=== PATIENT | male | born 1965 | race Caucasian/White ===

== ENCOUNTER 2023-06-09 09:29 | Outpatient (OUT) | payer BC, SELFPAY ==
--- NOTE | 2023-06-09 10:00 | XR_ITS ---
[facility] [id number] Patient Name: MEAGHAN RAPP MRN: [id number] date: 1965 Sex: M Assigned Patient Location: RAD Current Patient Location: RAD Accession/Order Number: [id number] Exam Date: 06/09/2023 09:50 Report Date: 06/09/2023 10:26 At the request of: CHERI PRINGLE Procedure: XR lumbar spine min 4V XR lumbar spine min 4V, 06/09/2023 9:50 AM EDT, [place]001 INDICATION: Dorsalgia M54..9 COMPARISON: None TECHNIQUE: 4 images are submitted including lateral flexion and extension images. FINDINGS: The vertebral bodies demonstrate normal sagittal alignment. There is no significant increased motion with flexion or extension. No acute fracture or subluxation is identified. There is no significant disc space narrowing. There are large anterior and posterior bridging osteophytes throughout the lumbar region. The visualized soft tissues appear unremarkable. XR/XR lumbar spine min 4V IMPRESSION: Diffuse hypertrophic degenerative changes throughout the lumbar spine. No evidence of instability. Electronically authenticated by: COLLEEN ROMEO Date: 06/09/2023 10:26
== END 2023-06-09 09:30 | disposition home or self-care (01) ==
LOC: RAD 09:29
PROVIDERS: PCP Family Medicine; Visit Provider Family Medicine
DX: M54.9 Dorsalgia, unspecified (principal); M51.36 Other intervertebral disc degeneration, lumbar region
CPT/HCPCS: 72110

== ENCOUNTER 2023-08-19 13:55 | Outpatient (OUT) | payer BC, SELFPAY ==
--- OUTSIDE RECORDS SUMMARY | 2023-08-19 13:58 | XMS_ITS | CCD ---
Author Name Unknown Address [address] [facility] [address] [place] [address] Organization [facility] Care Team Providers Care Cost Estimating Engineer Name Role Phone DR YVES VELASCO Admitting Unavailable ROD, DR MICHAEL Consulting Unavailable DR YVES VELASCO Attending Unavailable YARY, DR ALONZO Attending Unavailable DR CHERI PRINGLE Admitting Unavailable Cheri Pringle Unavailable Unavailable Unavailable Unavailable Cheri Pringle Unavailable Cheri Pringle Unavailable Cheri Pringle Unavailable DO Cheri Pringle Primary Care Provider DO Cheri Pringle Attending Provider Unavailable Unavailable DO Cheri Pringle Attending Provider NO FAMILY, PHYSICIAN Primary Care Provider Unava ilable Porsche RAMIREZ, Dr. Maged Morin Referring Unavailable Porsche RAMIREZ, Dr. Maged Morin Attending Unavailable Dr. Cheri Pringle Primary Care Unavaila Cheri Mc Primary Care Physician Mikel GRANGER Attending Unavailable Mikel GRANGER Attending Unavailable Mikel GRANGER Attending Unavailable Mikel GRANGER Attending Unavailable Cheri Pringle DO Primary Care Provider [phone] ANDRE CARLOS Attending Unavailable DO Cheri Pringle Primary Care Provider DO Cheri Pringle Attending Provider Cheri Pringle Admitting Unavailable Cheri Pringle Attending Unavailable Cheri Pringle Admitting Unavailable NO FAMILY, PHYSICIAN Primary Care Unavailable Cheri Pringle Attending Unavailable Cheri Pringle Attending Unavailable Cheri Pringle Primary Care Unavailable Cheri Pringle Admitting Unavailable Allergies Allergy Classification Reported Allergen(s) Allergy Type Date of Onset Reaction(s) Facility (7 sources) Penicillins Drug allergy (disorder) 4 Hives [facility] Repository (15 sources) Penicillins; Translations: [Penicillins] Allergy to drug (finding) Rash [facility] 250 DO Work Phone: (13 sources) Penicillins (Antibiotic) Propensity to adverse reactions rash [facility] [employer] Other (3 sources) Penicillin; Translations: [penicillin] Drug Allergy Unknown (qualifier value) [facility] (1 source) Penicillins Drug allergy (disorder) 0 [facility] Repository Medications Current Medications Medication Drug Class(es) Dates Sig (Normalized) Sig (Original) apixaban 5 mg oral tablet (10 sources) Factor Xa Inhibitor Start: 10-28-2021 take 1 tablet by mouth twice daily Apixaban (Eliquis) 5 mg Tablet Active 5 MG PO Twice daily October 28, 2021 12:00am Start: 09-21-2021 take 1 tablet by gonzalo th twice daily Eliquis 5 MG Oral Tablet Take 1 tablet twice daily Quantity: 60 Refills: 6 Ordered: 21-Sep-2021 Carmen Balderas Start : 21-Sep-2021 Active Ascorbic Acid (20 sources) Vitamin C Start: 01-10-2023 Vitamin C Margarita y, Refills(s) 0 Start Date: 01/10/23 Status: Ordered Start: 08-07-2020 take 1 tablet by mouth once da isac Ascorbic Acid (Vitamin C) Active 1 TAB PO Daily August 07, 2020 12:00am Start: 08-07-2020 take 1 tablet by mouth once da isac Ascorbic Acid (Vitamin C) Active 1 TAB PO Daily August 07, 2020 1:00am take 1 tablet by gonzalo th every twenty-four hours Vitamin C 1000 MG 1 tablet Orally Once a day Not-Taking/PRN aspirin 81 mg delayed release oral tablet (20 sources) Platelet Aggregation Inhibitor, Nonsteroidal Anti-inflammatory Drug Start: 01-10-2023 take 1 mg by mouth once daily aspirin 81 mg Oral EC Tab mg tab(s), Oral, Daily, Refills(s) 0 Start Date: 01/10/23 Status: Ordered Start: 08-07-2020 End: 10-28-2021 take 81 mg by mouth once daily Aspirin Discontinued 81 MG PO Daily August 07, 2020 12:00am October 28, 2021 8:50am take 1 tablet by gonzalo th every twenty-four hours Aspirin 81 81 MG 1 tablet Orally Once a day Active take 1 tablet by gonzalo th once daily Aspirin 81 81 MG 1 tablet Orally Once a day Active Baby Aspirin Act lalo cholecalciferol 0.05 mg oral tablet (20 sources) Vitamin D Start: 08-07-2020 take 1 tablet by mouth once daily Cholecalciferol (Vitamin D3) (Vitamin D3) 50 mcg (2,000 unit) Tablet Active 50 MCG PO Daily August 07, 2020 12:00am take 1 capsule by mouth once meche ly Vitamin D (Cholecalciferol) 50 MCG (2000 UT) Oral Capsule TAKE 1 CAPSULE Daily Quantity: 0 Refills: 0 Ordered: 02-Oct-2021 DO Active CPAP Mask and supplies (13 sources) Start: 07-07-2018 CPAP Mask and supplies as directed Dx: G47.33 Jun, Active Cranberry preparation (4 sources) Non-Standardized Food Allergenic Extract, Non-Standardized Plant Allergenic Extract Cranberry Active dofetilide 0.25 mg oral capsule (20 sources) Antiarrhythmic Start: 01-10-2023 dofetilide 250 mcg oral capsule Refills(s) 0 Start Date: 01/10/23 Status: Ordered Start: 10-30-2021 take 1 capsule by mo uth every twelve hours Dofetilide 250 MCG Oral Capsule TAKE 1 CAPSULE Every twelve hours Quantity: 180 Refills: 3 Ordered: 09-Feb-2022 Maged Nuno DO Start : 30-Oct-2021 Active Start: 10-30-2021 take 250 ug by mouth every twelve hours Dofetilide Active 250 MCG PO Q12H 60 30 October 30, 2021 12:00am take 1 capsule by mo uth every twelve hours Dofetilide 250 MCG 1 capsule Orally Twice a day Active dutasteride 0.5 mg oral capsule (6 sources) 5-alpha Reductase Inhibitor Start: 03-07-2023 End: 03-23-2024 take 1 capsule by mouth once daily dutasteride 0.5 mg Cap 0.5 mg = 1 cap(s), Oral, Daily, X 30 day(s), # 30 cap(s), Refills(s) 11, [facility]: [id number], 193, cm, 03/07/23 14:45:00 EDT, Height/Length Dosing, 178, kg, 03/07/23 14:45:00 EDT, Weight Dosing Start Date: 03/29/23 Stop Date: 03/23/24 Status: Ordered [id number] 0.3 ml EPINEPHrine 1 mg/ml auto-injector (14 sources) alpha-Adrenergic Agonist, beta-Adrenergic Agonist, Catecholamine Start: 11-26-2021 EpiPen 2-Timoteo 0.3 MG/0.3ML as directed Injection Nov, Active Start: 11-26-2021 EPINEPHrine 0. 3 MG/0.3ML Injection Solution Auto-injector inject 0.3 milliliters intramuscularly in OUTER THIGH and HOLD fo... (REFER TO PRESCRIPTION NOTES). Quantity: 2 Refills: 0 Ordered: 26-Nov-2021 DO Start : 26-Nov-2021 Active krill oil (20 sources) Start: 08-07-2021 take 1 capsule by mouth once daily Zmulp-No-9-Upo-Bnl-Dgcbkwg-Ast (Krill Oil) 025-180-42-75 mg Capsule Active 1 CAP PO Daily August 07, 2021 12:00am Start: 08-07-2021 take 1 capsule by mouth once daily Aonag-Bh-7-Xvw-Ram-Zqqtiip-Ast (Krill Oi l) 607-277-09-75 mg Capsule Active 1 CAP PO Daily August 07, 2021 1:00am Krill Oil 1000 M G as directed Orally Active Magnesium (20 sources) Start: 08-07-2020 take 250 mg by mouth twice daily Magnesium Active 250 MG PO Twice daily August 07, 2020 12:00am Start: 08-07-2020 take 250 mg by mouth twice meche ly Magnesium Active 250 MG PO Twice daily August 07, 2020 1:00am take 1 capsule by mo [facility] twice daily Magnesium 250 MG 1 capsule with a meal Orally twice daily Active take 1 tablet by gonzalo twice daily Magnesium 250 MG Oral Tablet Take 1 tablet twice daily Quantity: 0 Refills: 0 Ordered: 31-Jarrell-2022 DO Active take 1 tablet by mouth once margarita y Magnesium 250 MG Oral Tablet TAKE 1 TABLET DAILY. Quantity: 0 Refills: 0 Ordered: 10-Aug-2021 DO Active take 1 capsule by mo [facility] once daily Magnesium 250 MG 1 capsule with a meal Orally Once a day Active magnesium gluconate 250 mg oral tablet (2 sources) Start: 01-10-2023 take 1 mg by mouth twice daily magnesium gluconate 250 mg oral tablet mg, tab(s), Oral, BID, Refill(s) 0 Start Date: 01/10/23 Status: Ordered Nature's Bounty Red Krill Oil (2 sources) Start: 01-10-2023 take 1 mg by mouth once daily Nature's Bounty Red Krill Oil mg, Oral, Daily, Refill(s) 0 Start Date: 01/10/23 Status: Ordered olmesartan medoxomil 20 mg oral tablet (20 sources) Angiotensin 2 Receptor Elijah Start: 12-09-2021 olmesartan 20 mg Tab Refills(s) 0 Start Date: 01/10/23 Status: Ordered Start: 10-30-2021 take 1 tablet by gonzalo once daily Olmesartan (Benicar) 40 mg tablet Active 40 MG PO Daily October 30, 2021 12:00am take 1 tablet by gonzalo twice daily Olmesartan Medoxomil 40 MG 1 tablet Orally twice per day Active Psyllium (19 sources) Start: 01-10-2023 Metamucil Oral , Refills(s) 0 Start Date: 01/10/23 Status: Ordered Metamucil 48.57 % as directed Orally Active Metamucil Oral W afer as directed Quantity: 0 Refills: 0 Ordered: 09-Dec-2021 DO Active Metamucil 48.57 % as directed Orally Active Psyllium Husk (Metamucil) 0. 4 gram Capsule (5 sources) Start: 08-08-2020 Psyllium Husk (Metamucil) 0.4 gram Capsule Active 0.4 GM PO Daily August 08, 2020 12:00am Start: 08-08-2020 Psyllium Husk (Metamucil) 0.4 gram Capsule Active 0.4 GM PO Daily August 08, 2020 1:00am tadalafil 20 mg oral tablet (1 source) Phosphodiesterase 5 Inhibitor Start: 03-07-2023 End: 05-06-2023 take 1 tablet by mouth once daily Cialis 20 mg Tab 20 mg = 1 tab(s), Oral, Daily, X 30 day(s), # 30 tab(s), Refills(s) 1, [facility]acy: [facility] #[id number], 193, cm, 03/07/23 14:45:00 EDT, Height/Length Dosing, 178, kg, 03/07/23 14:45:00 EDT, Weight Dosing Start Date: 03/07/23 Stop Date: 05/06/23 Status: Ordered Vitamin D2 2000 Unit (13 sources) Start: 09-19-2017 take 1 tablet by mouth once daily Vitamin D2 2000 Unit OTC 1 tablet Orally qd Aug, Active Vitamin D3 (2 sources) Start: 01-10-2023 Vitamin D3 Refills(s) 0 Start Date: 01/10/23 Status: Ordered Completed/Discontinued Medications Medication Drug Class(es) Dates Sig (Normalized) Sig (Original) 24 hr alfuzosin hydrochloride 10 mg extended release oral tablet (2 sources) alpha-Adrenergic Elijah take 1 tablet by mouth once daily Alfuzosin HCl ER 10 MG Oral Tablet Extended Release 24 Hour TAKE 1 TABLET DAILY. Quantity: 0 Refills: 0 Ordered: 03-Feb-2023 DO Active amLODIPine 5 mg oral tablet (13 sources) Dihydropyridine Calcium Channel Elijah Start: 08-07-2021 End: 08-09-2021 take 5 mg by mouth once daily Amlodipine Discontinued 5 MG PO Daily August 07, 2021 12:00am August 09, 2021 11:52am Start: 08-07-2020 End: 08-07-2021 take 10 mg by mouth once daily Amlodipine Discontinued 10 MG PO Daily August 07, 2020 12:00am August 07, 2021 5:57pm doxycycline hyclate 100 mg oral capsule (12 sources) Tetracycline-class Drug Start: 06-01-2022 take 1 capsule by mouth every twelve hours Doxycycline Hyclate 100 MG 1 capsule Orally Twice a day May, Not-Taking/PRN take 1 tablet by mouth once margarita y Doxycycline Hyclate 100 MG Oral Tablet TAKE 1 TABLET EVERY 12 HOURS DAILY. Quantity: 0 Refills: 0 Ordered: 03-Feb-2023 DO Active sotalol hydrochloride 120 mg oral tablet (13 sources) Antiarrhythmic Start: 08-09-2021 End: 10-28-2021 take 120 mg by mouth twice daily Sotalol Discontinued 120 MG PO Twice daily 60 August 09, 2021 12:00am October 28, 2021 8:51am take 0.5 tablet by mouth twice d aily Sotalol HCl - 120 MG Oral Tablet TAKE 0.5 TABLET Twice daily Quantity: 0 Refills: 0 Ordered: 02-Oct-2021 DO Active Triamcinolone (10 sources) Corticosteroid Start: 10-20-2017 Kenalog -40 mg Oct, Vitamin C 1000 MG (12 sources) take 1 tablet by mouth once daily Vitamin C 1000 MG 1 tablet Orally Once a day Not-Taking take 1 tablet by mouth once margarita y Vitamin C 1000 MG 1 tablet Orally Once a day Active Problems Active Problems Problem Classification Problem Date Documented Da te Episodic/Chronic Adjustment disorders (13 sources) Feeling stressed; Translations: [Reaction to severe stress, unspecified] Chronic Asthma (12 sources) Asthma; Translations: [Asthma, unspecified type, unspecified] Chronic Cardiac dysrhythmias (20 sources) Atrial fibrillation; Translations: [Atrial fibrillation] 08-07-2021 Chronic Diabetes mellitus without complication (5 sources) Hyperglycemia, unspecified; Translations: [Hyperglycemia] Onset: 05-26-2021 Resolved: 05-26-2021 Episodic Disorders of lipid metabolism (20 sources) Hyperlipidemia; Translations: [Hyperlipidemia, unspecified] Onset: 05-26-2021 Resolved: 05-26-2021 Chronic Essential hypertension (20 sources) Benign hypertension; Translations: [Benign essential hypertension] Onset: 05-26-2021 Resolved: 05-26-2021 Chronic Genitourinary symptoms and ill-defined conditions (1 source) Hematuria, unspecified Episodic Hyperplasia of prostate (4 sources) Benign prostatic hypertrophy with outflow obstruction; Translations: [Benign prostatic hyperplasia with lower urinary tract symptoms] Onset: 03-07-2023 Chronic Inflammatory conditions of male genital organs (4 sources) Prostatitis; Translations: [Inflammatory disease of prostate, unspecified] Onset: 03-07-2023 Episodic Nonspecific chest pain (5 sources) Chest pain; Translations: [Chest pain, unspecified] 08-07-2021 Episodic Nutritional deficiencies (18 sources) Vitamin D deficiency; Translations: [Vitamin D deficiency, unspecified] Onset: 05-26-2021 Resolved: 05-26-2021 Chronic Osteoarthritis (13 sources) Arthritis of joint of right shoulder region; Translations: [Primary osteoarthritis, right shoulder] Chronic Other aftercare (2 sources) Other detention (current) drug therapy Episodic Other aftercare (4 sources) Drug therapy finding; Translations: [Long-term (current) use of other medications] Episodic Other and unspecified benign neoplasm (13 sources) History of polyp of colon; Translations: [Personal history of colonic polyps] Episodic Other circulatory disease (2 sources) Elevated blood-pressure reading, without diagnosis of hypertension Episodic Other connective tissue disease (13 sources) Bursitis of right shoulder; Translations: [Bursitis of right shoulder] Episodic Other diseases of veins and lymphatics (13 sources) Peripheral venous insufficiency; Translations: [Venous insufficiency (chronic) (peripheral)] Episodic Other gastrointestinal disorders (4 sources) Dysphagia; Translations: [Dysphagia, unspecified] Episodic Other gastrointestinal disorders (1 source) Dysphagia, unspecified Episodic Other infections; including parasitic (5 sources) Personal history of other infectious and parasitic diseases; Translations: [History of COVID-19] 08-07-2021 Episodic Other lower respiratory disease (2 sources) Nodule of lung; Translations: [Solitary pulmonary nodule] Episodic Other lower respiratory disease (1 source) Solitary pulmonary nodule; Translations: [Solitary pulmonary nodule] Onset: 08-01-2023 Episodic Other nervous system disorders (13 sources) Sensory disorder of smell and/or taste; Translations: [Anosmia] Episodic Other nervous system disorders (13 sources) Loss of taste; Translations: [Parageusia] Episodic Other nervous system disorders (20 sources) Skin sensation disturbance; Translations: [Paresthesia of skin] Episodic Other nutritional; endocrine; and metabolic disorders (2 sources) Morbid obesity; Translations: [Morbid obesity] Chronic Other nutritional; endocrine; and metabolic disorders (12 sources) Body mass index 40+ - severely obese; Translations: [Morbid obesity] Chronic Other nutritional; endocrine; and metabolic disorders (2 sources) Abnormal weight gain; Translations: [Weight gain R63.5] Onset: 05-26-2021 Resolved: 05-26-2021 Episodic Other nutritional; endocrine; and metabolic disorders (1 source) Abnormal weight loss Episodic Other screening for suspected conditions (not mental disorders or infectious disease) (19 sources) Echocardiogram abnormal; Translations: [Nonspecific (abnormal) findings on radiological and other examination of other intrathoracic organs] Onset: 05-26-2021 Resolved: 05-26-2021 Episodic Residual codes; unclassified (20 sources) Sleep apnea; Translations: [Unspecified sleep apnea] 01-10-2023 Chronic Residual codes; unclassified (2 sources) Sleep apnea, unspecified; Translations: [Sleep apnea G47.30] Onset: 05-26-2021 Resolved: 05-26-2021 Chronic Residual codes; unclassified (4 sources) Family history of malignant neoplasm of kidney; Translations: [Family history of malignant neoplasm of kidney] Onset: 03-07-2023 Episodic Residual codes; unclassified (2 sources) Family history of cancer; Translations: [Family history of malignant neoplasm of prostate] Onset: 03-07-2023 Episodic Residual codes; unclassified (2 sources) Family history of prostate cancer 01-10-2023 Episodic Spondylosis; intervertebral disc disorders; other back problems (1 source) Dorsalgia, unspecified Episodic Thyroid disorders (17 sources) Hypothyroidism; Translations: [Hypothyroidism, unspecified] Chronic Past or Other Problems Problem Classification Problem Date Documented Date Episodic/Chronic Immunizations and screening for infectious disease (4 sources) Contact with and (suspected) exposure to other viral communicable diseases; Translations: [CONTCT EXPS OTH VIRL COMMUNICABL DZ] Onset: 08-05-2020 Episodic Other and unspecified benign neoplasm (1 source) Personal history of colonic polyps; Translations: [PERSONAL HISTORY OF COLONIC POLYPS] Onset: 08-18-2020 Episodic Other diseases of veins and lymphatics (1 source) Venous insufficiency (chronic) (peripheral); Translations: [Stasis dermatitis of both legs I87.2] Onset: 05-26-2021 Resolved: 05-26-2021 Episodic Other lower respiratory disease (1 source) Cough; Translations: [Cough R05] Onset: 05-26-2021 Resolved: 05-26-2021 Episodic Unclassified (12 sources) Never smoked tobacco; Translations: [Never a smoker] Urinary tract infections (5 sources) Cystitis, unspecified without hematuria; Translations: [Cystitis, unspecified without hematuria] Onset: 12-13-2022 Episodic Viral infection (1 source) COVID-19 Results Test Name Value Interpretation Reference Range Facility CT chest wo conon 08-01-2023 CT chest wo con [facility] [place] [address] [place] [address] CT Scan Report Signed Patient: Chevy Rapp MR#: [id number] 123 : 1965 Acct:[id number] Age/Sex: 58 / M ADM Date: 08/01/23 Loc: CT Room: Type: [facility] Attending Dr: Cheri Pringle DO Copies to: Cheri Pringel DO Ordering Provider: Cheri Pringle DO Date of Service: 08/01/23 CT/CT chest wo con: R91.1 CT CHEST WITHOUT IV CONTRAST: CLINICAL HISTORY: Follow-up lung nodule COMPARISON: Cardiac scoring CT performed at outside institution 07/11/2023 TECHNIQUE: Spiral images were obtained through the chest without IV contrast. This CT exam was performed using one or more following dose reduction techniques: Automated exposure control, adjustment of the mA and/or kV according to patient size, or use of iterative reconstruction technique. FINDINGS: Mediastinum:Thoracic aorta appears normal in caliber. Pulmonary trunk appears nondilated. No pleural effusion. No lymphadenopathy. The esophagus is grossly unremarkable. Lungs:No consolidation pneumothorax or pleural effusion. Trachea and distal airways appear patent. No suspicious pulmonary nodule seen on today's study. Stable fissural nodule seen along the minor fissure measuring 3 mm series 4 measures 34 likely postinflammatory in nature. Abd:No acute findings. Soft tissues/Bones: Soft tissues demonstrate no acute findings. Osseous structures demonstrate degenerative change. CT/CT chest wo con IMPRESSION: Presumed postinflammatory nodule along the minor fissure. No suspicious pulmonary nodule is seen on today's study. Impression dictated by: Markell Dodge Jr., D.O.08/01/2023 2:31 PM Dictation Location: [place] [address] Transcribed By: [facility] 08/01/23 1431 Dictated By: Markell Dodge Jr, DO 08/01/23 1134 Signed By: 08/01/23 1431 [address] [facility] CT for calcium scoring WO co ntrast and CTA W contrast IV Heart and coronary arterieson 07-11-2023 Addendum by Brayden Cisneros MD on 07/11/2023 11:41 AM EST Interpreted By: Brayden Cisneros, ADDENDUM: NON-CARDIOVASCULAR FINDINGS INCLUDED LUNGS, AIRWAYS AND PLEURA Endotracheal / endobronchial lesion: Negative Nodule: 3 mm noncalcified technically indeterminate solid middle lobe nodule just below the minor fissure versus fissural lymph node, but seems removed from the minor fissure by several mm Airspace disease: Negative Pleural effusion: Negative Pneumothorax: Negative Other: No acute or contributory unanticipated findings INCLUDED NON-CARDIOVASCULAR ENRIQUE AND MEDIASTINUM Adenopathy: Negative Included esophagus: Unremarkable Other: No acute or contributory unanticipated findings INCLUDED BONES: No acute skeletal findings, noting less sensitivity and specificity without dedicated sagittal and coronal reformatted series. INCLUDED CHEST WALL No acute or contributory unanticipated findings INCLUDED UPPER ABDOMEN Borderline to mild fatty liver ------- NON-CARDIOVASCULAR IMPRESSION BORDERLINE TO MILD FATTY LIVER. AT LEAST SOME PORTIONS OF THE INCLUDED LIVER ON LIMITED FIELD OF VIEW CT CHEST WITHOUT CONTRAST FOR CORONARY ARTERY CALCIUM SCORING DATED 04 OCTOBER 2016 MEASURED FATTY AT THAT TIME 3 MM MIDDLE LOBE NODULE VERSUS MINOR FISSURAL LYMPH NODE IS IN A PORTION OF THE CHEST NOT INCLUDED IN THE FIELD OF VIEW ON THE LIMITED FIELD OF VIEW CT CHEST WITHOUT CONTRAST FOR CORONARY ARTERY CALCIUM SCORING DATED 04 OCTOBER 2016, UNCLEAR WHETHER NEW OR NOT. Even if new, ACCORDING TO 2017 REVISION LUNG NODULE FOLLOW-UP GUIDELINES, ONE YEAR FOLLOW-UP CHEST CT WOULD BE OPTIONAL, EVEN IN A HIGH RISK PATIENT (SMOKING OR MALIGNANCY HISTORY); HOWEVER, THOSE RECOMMENDATIONS ARE BASED ON REVIEW OF A COMPLETE CHEST CT. THE NEED, IF ANY, FOR NEAR TERM FOLLOW-UP COMPLETE CHEST CT SHOULD BE BASED ON CLINICAL/RISK FACTORS NOTE THIS ADDENDUM IS SOLELY FOR INTERPRETATION OF ANATOMY OUTSIDE THE CARDIOVASCULAR SYSTEM. INTERPRETATION OF AND REPORTING OF THE CARDIOVASCULAR STRUCTURES ARE THE SOLE RESPONSIBILITY OF THE [employer] DUSTER HELPER SUBMITTING THE ORIGINAL REPORT (NOT THIS ADDENDUM) Signed by: Brayden Cisneros 07/11/2023 11:41 AM -------- ORIGINAL REPORT -------- Dictation workstation: [id number] [facility] Work Phone: 1. Coronary artery calcium score of 485*. 2. JEFFERSON 91st percentile for age, gender, and race in asymptomatic patients. *Coronary Artery Agatston score Score risk Very low 1-99 Mildly increased 100-299 Moderately increased >300 Moderate to severely increased >800 Alonzo et al. JCCT 2016 (http://dx.doi.org/10. 1016/j.jcct.2016.11.00 3) JEFFERSON Percentile In general, greater than 75th percentile for age, gender, and race is considered to be a higher relative risk and higher lifetime risk condition. Greater than 75th percentile=moderate to severely increased relative risk irrespective of the score. Advise using JEFFERSON 10 year CHD risk calculator below for better discrimination of risk. JEFFERSON 10-Year CHD Risk with Coronary Artery Calcification can be calcuate using link below [email or web address] [email or web address] [email or web address].[email or web address] x Joan goel al. JACC 2015 (http://dx.doi.org/10. 1016/j.j acc.2015.08.035) Reading Sound Effects Manager: Dr. Hesham Clark, Date: 07/11/2023 11:22 am Signed by: Hesham Clark 07/11/2023 11:24 AM Dictation workstation: [id number] MMODAL Interpreted By: Hesham Clark, STUDY: CT CARDIAC SCORING WO IV CONTRAST; 07/11/2023 10:30 am INDICATION: Signs/Symptoms:SCREENI NG. COMPARISON: None. ACCESSION NUMBER(S): [id number] ORDERING CLINICIAN: CHERI PRINGLE TECHNIQUE: Using prospective ECG gating, CT scan of the coronary arteries was performed without intravenous contrast. Coronary calcium scoring was performed according to the method of Agatston. CT Dose-Length Product (DLP): 60.7 mGy*cm CT Dose Reduction Employed: Yes, prospective gating, iterative reconstruction. FINDINGS: The score and distribution of calcium in the coronary arteries is as follows: LM 0 LAD 264 LCx 199 RCA 22 Total 485 The visualized ascending thoracic aorta measures 4.0 cm in diameter. The heart is normal in size. No pericardial effusion is present. The main pulmonary artery, right and left pulmonary artery are normal in size. MMODAL Hesham Clark D O / Brayden Cisneros MD - 07/11/2023 Interpreted By: Hesham Clark, STUDY: CT CARDIAC SCORING WO IV CONTRAST; 07/11/2023 10:30 am INDICATION: Signs/Symptoms:SCREENI NG. COMPARISON: None. ACCESSION NUMBER(S): [id number] ORDERING CLINICIAN: CHERI PRINGLE TECHNIQUE: Using prospective ECG gating, CT scan of the coronary arteries was performed without intravenous contrast. Coronary calcium scoring was performed according to the method of Agatston. CT Dose-Length Product (DLP): 60.7 mGy*cm CT Dose Reduction Employed: Yes, prospective gating, iterative reconstruction. FINDINGS: The score and distribution of calcium in the coronary arteries is as follows: LM 0 LAD 264 LCx 199 RCA 22 Total 485 The visualized ascending thoracic aorta measures 4.0 cm in diameter. The heart is normal in size. No pericardial effusion is present. The main pulmonary artery, right and left pulmonary artery are normal in size. IMPRESSION: 1. Coronary artery calcium score of 485*. 2. JEFFERSON 91st percentile for age, gender, and race in asymptomatic patients. *Coronary Artery Agatston score Score risk Very low 1-99 Mildly increased 100-299 Moderately increased >300 Moderate to severely increased >800 Alonzo et al. JCCT 2016 (http://dx.doi.org/10. 1016/j.jcct.2016.11.00 3) JEFFERSON Percentile In general, greater than 75th percentile for age, gender, and race is considered to be a higher relative risk and higher lifetime risk condition. Greater than 75th percentile=moderate to severely increased relative risk irrespective of the score. Advise using JEFFERSON 10 year CHD risk calculator below for better discrimination of risk. JEFFERSON 10-Year CHD Risk with Coronary Artery Calcification can be calcuate using link below https://www.jefferson-nhlbi .org/[email or web address]/MesaR iskScore/RiskScore.asp x Joan goel al. JACC 2015 (http://dx.doi.org/10. 1016/j.j acc.2015.08.035) Reading Sound Effects Manager: Dr. Hesham Clark, Date: 07/11/2023 11:22 am Signed by: Hesham Clark 07/11/2023 11:24 AM Dictation workstation: [id number] [facility] Work Phone: Radiology Study observation (narrative) [facility] Work Phone: CT for calcium scoring WO co ntrast and CTA W contrast IV Heart and coronary arteriesOrdered By: Hesham Clark on 07-11-2023 [facility] Work Phone: Ambulatory Visit Summaryon 1 08-27-2022 Ambulatory Visit Summary CHEVY RAPP :1965 Visit Date:06/27/2023 Ambulatory Visit Instructions Your Diagnosis BPH with urinary obstruction Prostatitis Family history of prostate cancer in father Family history of kidney cancer Tests Performed Urnls Dip Stick Auto w/o Microscopy POC 17230 Your Care Team Attending Physician - Mikel GRANGER MD Primary Care Physician - Cheri Pringle DO This Is Your Medications List dutasteride (dutasteride 0.5 mg Cap) Contact prescribing physician if questions or concerns ascorbic acid (Vitamin C) aspirin (aspirin 81 mg Oral EC Tab) cholecalciferol (Vitamin D3) dofetilide (dofetilide 250 mcg oral capsule) magnesium gluconate (magnesium gluconate 250 mg oral tablet) olmesartan (olmesartan 20 mg Tab) omega-3 polyunsaturated fatty acids (Nature's Bounty Red Krill Oil) psyllium (Metamucil) Procedures Performed Colonoscopy, Repair of quadriceps tendon. Discharge Vitals Heart Rate (Peripheral) 88 Respiratory Rate 16 Blood Pressure 131/81 Height 193 cm Height 76 in Weight 178.4 kg Weight 392.48 lb BMI 47.89 What to do next Scheduled Follow-Up Appointments Tuesday. 2023 2:45 PM EDT With: SCOTT VINSON, Mikel Wagner Where: [facility] Patient Educationon 06-27-20 23 Patient Education Urology Benign Prostatic Hyperplasia Benign prostatic hyperplasia (BPH) is an enlarged prostate gland that is caused by the normal aging process. The prostate may get bigger as a man gets older. The condition is not caused by cancer. The prostate is a walnut-sized gland that is involved in the production of semen. It is located in front of the rectum and below the bladder. The bladder stores urine. The urethra carries stored urine out of the body. An enlarged prostate can press on the urethra. This can make it harder to pass urine. The buildup of urine in the bladder can cause infection. Back pressure and infection may progress to bladder damage and kidney (renal) failure. What are the causes? This condition is part of the normal aging process. However, not all men develop problems from this condition. If the prostate enlarges away from the urethra, urine flow will not be blocked. If it enlarges toward the urethra and compresses it, there will be problems passing urine. What increases the risk? This condition is more likely to develop in men older than 50 years. What are the signs or symptoms? Symptoms of this condition include: ? Getting up often during the night to urinate. ? Needing to urinate frequently during the day. ? Difficulty starting urine flow. ? Decrease in size and strength of your urine stream. ? Leaking (dribbling) after urinating. ? Inability to pass urine. This needs immediate treatment. ? Inability to completely empty your bladder. ? Pain when you pass urine. This is more common if there is also an infection. ? Urinary tract infection (UTI). How is this diagnosed? This condition is diagnosed based on your medical history, a physical exam, and your symptoms. Tests will also be done, such as: ? A post-void bladder scan. This measures any amount of urine that may remain in your bladder after you finish urinating. ? A digital rectal exam. In a rectal exam, your health care provider checks your prostate by putting a lubricated, gloved finger into your rectum to feel the back of your prostate gland. This exam detects the size of your gland and any abnormal lumps or growths. ? An exam of your urine (urinalysis). ? A prostate specific antigen (PSA) screening. This is a blood test used to screen for prostate cancer. ? An ultrasound. This test uses sound waves to electronically produce a picture of your prostate gland. Your health care provider may refer you to a specialist in kidney and prostate diseases (urologist). How is this treated? Once symptoms begin, your health care provider will monitor your condition (active surveillance or watchful waiting). Treatment for this condition will depend on the severity of your condition. Treatment may include: ? Observation and yearly exams. This may be the only treatment needed if your condition and symptoms are mild. ? Medicines to relieve your symptoms, including: ? Medicines to shrink the prostate. ? Medicines to relax the muscle of the prostate. ? Surgery in severe cases. Surgery may include: ? Prostatectomy. In this procedure, the prostate tissue is removed completely through an open incision or with a laparoscope or robotics. ? Transurethral resection of the prostate (TURP). In this procedure, a tool is inserted through the opening at the tip of the penis (urethra). It is used to cut away tissue of the inner core of the prostate. The pieces are removed through the same opening of the penis. This removes the blockage. ? Transurethral incision (TUIP). In this procedure, small cuts are made in the prostate. This lessens the prostate's pressure on the urethra. ? Transurethral microwave thermotherapy (TUMT). This procedure uses microwaves to create heat. The heat destroys and removes a small amount of prostate tissue. ? Transurethral needle ablation (TUNA). This procedure uses radio frequencies to destroy and remove a small amount of prostate tissue. ? Interstitial laser coagulation (ILC). This procedure uses a laser to destroy and remove a small amount of prostate tissue. ? Transurethral electrovaporization (TUVP). This procedure uses electrodes to destroy and remove a small amount of prostate tissue. ? Prostatic urethral lift. This procedure inserts an implant to push the lobes of the prostate away from the urethra. Follow these instructions at home: ? Take qyqc-pvx-lmvhlsj and prescription medicines only as told by your health care provider. ? Monitor your symptoms for any changes. Contact your health care provider with any changes. ? Avoid drinking large amounts of liquid before going to bed or out in public. ? Avoid or reduce how much caffeine or alcohol you drink. ? Give yourself time when you urinate. ? Keep all follow-up visits. This is important. Contact a health care provider if: ? You have unexplained back pain. ? Your symptoms do not get better with treatment. ? You develop side effects from the medicine (more content not included)... [facility] Office/Clinic Noteon 06-27-2023 Urology Office/Clinic Note Chief Complaint BPH with urinary obstruction HPI Staff 3 month f/u. Previous dx of BPH with urinary obstruction, prostatitis, family hx of prostate cancer (father) and family hx of kidney cancer. Pt continues taking Dutasteride 0.5mg QD. Dysuria: no Incomplete bladder emptying: no Hematuria: no Frequency: every couple of hours Urgency: minor states it is so much better than before Nocturia: 1x Stream: good flow Leaking: very little now Post void dripping: yes Wearing pads/ Depends: no Urge incontinence: no Stress incontinence: no Incontinence without Sensory Awareness: no Abdominal pain: no Flank pain: no Sexual complaints: no History of Present Illness Tests reviewed: reviewed UA I have reviewed the previous health record information and history for this patient from . I have reviewed and verified the staff HPI to be accurate for this encounter. There have been no associated fever, chills, flank pain, or blood in the urine. Denies any urinary infections since last encounter. Review of Systems PHQ Score Initial Depression Screen Score: 0 ROS - Provider Constitutional: denies weight loss, denies hot flashes. Eyes: denies eye problems. Gastrointestinal: denies nausea, denies vomiting. Cardiovascular: denies chest pain or angina. Integumentary: no dryness Musculoskeletal: denies musculoskeletal symptoms. ENMT: denies otolaryngeal symptoms. Respiratory: no shortness of breath. Heme/Lymph: denies easy bleeding tendency, denies easy bruising tendency. Psychiatric: no confusion, no anxiety. Genitourinary: See HPI. Physical Exam Vitals & Measurements HR: 88(Peripheral) RR: 16 BP: 131/81 HT: 76 in HT: 193 cm WT: 178.4 kg WT: 392.48 lb BMI: 47.89 General Appearance: alert, no distress, well nourished, well developed male. Assessment/Plan 1. BPH with urinary obstruction (N40.1: Benign prostatic hyperplasia with lower urinary tract symptoms) PSA: 11/19/22 - 0.45 11/26/22 - 1.46 (elevated due to prostatitis) 02/11/23 - 0.42 Pt was taking Alfuzosin 10 mg ER QD, reported that he had low BP when he first began taking it and has been feeling hot after taking medication, pt stated he stopped taking his BP medication. Pt was to stop taking Alfuzosin, restart BP medication, and begin Dutasteride 0.5mg QD and Cialis 20mg QOD. Pt states that he is currently taking Dutasteride 0.5mg QD and not the Cialis. Pt states that he has noticed an improvement from starting the Dutasteride, he does not void as frequently, can sit through a movie without having to void, has a larger volume when he voids. Pt states that he is happy with the differences. Advised pt that he will still have a few more months of improvement. Pt states that he had taken the Cialis for a little bit, but was experiencing hot flashes and d/c it. Advised pt that this is fine. Pt states that he has seen a 25% of improvement. Pt states that the only problem he has is that his insurance does not cover the Dutasteride and it costs the same with GoodRx. Advised pt that there is another med that could be cheaper, but if he is doing well with the Dutasteride, he should stay on it. Follow up in 4 mos. All questions/concerns were discussed. Pt to call the office if he encounters any issues prior. Pt acknowledges understanding. -Continue Dutasteride 0.5mg QD. 2. Prostatitis (N41.9: Inflammatory disease of prostate, unspecified) UA dip & micro 06/01/22 - WBC 20-49, RBC 5-9. UCx 06/01/22 - >100,000 E. coli, mallory sensitive. UA dip & micro 06/15/22 - WBC 3-4, RBC 3-4. UCx 06/15/22 - Mixed skin containments. UA dip & micro 11/29/22 - WBC 10-19, RBC 3-4. UCx 11/29/22 - 30,000 E. coli, mallory sensitive. Pt took Doxycycline 100 mg bid x 30 days, which treated infection. UA today shows trace leuks. Asx. 3. Family history of prostate cancer in father (Z80.42: Family history of malignant neoplasm of prostate) 4. Family history of kidney cancer (Z80.51: Family history of malignant neoplasm of kidney) Follow-up With When Contact Information SCOTT VINSON, Mikel Wagner, YVONNE In 4 months [facility] [address], [place] [address]- Additional Instructions: Patient Education Benign Prostatic Hyperplasia I, Nasreen Wilson , personally scribed for Dr. Granger on 06/27/2023 14:39:06. . Documentation recorded by the scribe, Nasreen Wilson, accurately reflects the services(s) I performed and decisions made by me. Problem List/Past Medical History Ongoing BPH with urinary obstruction Family history of kidney cancer Family history of prostate cancer in father Hyperglycemia Hyperlipidemia Hypertension Hypothyroidism Prostatitis Sleep apnea Vitamin D deficiency Historical No qualifying data Procedure/Surgical History Colonoscopy, Repair of quadriceps tendon. Medications aspirin 81 mg Oral EC Tab, Oral, Daily dofetilide 250 mcg oral capsule duta (more content not included)... [facility] Comment on above: Result Comment: Elec tronically Signed By: Mikel GRANGER MD\.br\Date and Time Signed: 06/27/23 14:40 EST\.br\Electronically Co-Signed By: Nasreen Wilson\.br\Date and Time Co-Signed: 06/27/23 14:39 EST Pre-Certification Formon Pre-Certification Form [id number] [facility] Ambulatory Visit Summaryon 0 03-07-2023 Ambulatory Visit Summary CHEVY RAPP :1965 Visit Date:03/07/2023 Ambulatory Visit Instructions Your Diagnosis BPH with urinary obstruction Prostatitis Family history of prostate cancer in father Family history of kidney cancer Tests Performed Urnls Dip Stick Auto w/o Microscopy POC 81272 Your Care Team Attending Physician - iMkel GRANGER MD Primary Care Physician - Cheri Pringle DO This Is Your Medications List alfuzosin (alfuzosin 10 mg ER Tab) Contact prescribing physician if questions or concerns ascorbic acid (Vitamin C) aspirin (aspirin 81 mg Oral EC Tab) cholecalciferol (Vitamin D3) dofetilide (dofetilide 250 mcg oral capsule) magnesium gluconate (magnesium gluconate 250 mg oral tablet) olmesartan (olmesartan 20 mg Tab) omega-3 polyunsaturated fatty acids (Nature's Bounty Red Krill Oil) psyllium (Metamucil) Procedures Performed Colonoscopy, Repair of quadriceps tendon. Discharge Vitals Heart Rate (Peripheral) 88 Respiratory Rate 16 Blood Pressure 136/83 Height 193 cm Height 76 in Weight 178 kg Weight 391.6 lb BMI 47.79 What to do next Scheduled Follow-Up Appointments Tuesday 3:00 PM EDT With: Mikel GRANGER MD Where: [facility] [place] [facility] Patient Educationon 03-07-20 Patient Education Urology Benign Prostatic Hyperplasia Benign prostatic hyperplasia (BPH) is an enlarged prostate gland that is caused by the normal aging process. The prostate may get bigger as a man gets older. The condition is not caused by cancer. The prostate is a walnut-sized gland that is involved in the production of semen. It is located in front of the rectum and below the bladder. The bladder stores urine. The urethra carries stored urine out of the body. An enlarged prostate can press on the urethra. This can make it harder to pass urine. The buildup of urine in the bladder can cause infection. Back pressure and infection may progress to bladder damage and kidney (renal) failure. What are the causes? This condition is part of the normal aging process. However, not all men develop problems from this condition. If the prostate enlarges away from the urethra, urine flow will not be blocked. If it enlarges toward the urethra and compresses it, there will be problems passing urine. What increases the risk? This condition is more likely to develop in men older than 50 years. What are the signs or symptoms? Symptoms of this condition include: ? Getting up often during the night to urinate. ? Needing to urinate frequently during the day. ? Difficulty starting urine flow. ? Decrease in size and strength of your urine stream. ? Leaking (dribbling) after urinating. ? Inability to pass urine. This needs immediate treatment. ? Inability to completely empty your bladder. ? Pain when you pass urine. This is more common if there is also an infection. ? Urinary tract infection (UTI). How is this diagnosed? This condition is diagnosed based on your medical history, a physical exam, and your symptoms. Tests will also be done, such as: ? A post-void bladder scan. This measures any amount of urine that may remain in your bladder after you finish urinating. ? A digital rectal exam. In a rectal exam, your health care provider checks your prostate by putting a lubricated, gloved finger into your rectum to feel the back of your prostate gland. This exam detects the size of your gland and any abnormal lumps or growths. ? An exam of your urine (urinalysis). ? A prostate specific antigen (PSA) screening. This is a blood test used to screen for prostate cancer. ? An ultrasound. This test uses sound waves to electronically produce a picture of your prostate gland. Your health care provider may refer you to a specialist in kidney and prostate diseases (urologist). How is this treated? Once symptoms begin, your health care provider will monitor your condition (active surveillance or watchful waiting). Treatment for this condition will depend on the severity of your condition. Treatment may include: ? Observation and yearly exams. This may be the only treatment needed if your condition and symptoms are mild. ? Medicines to relieve your symptoms, including: ? Medicines to shrink the prostate. ? Medicines to relax the muscle of the prostate. ? Surgery in severe cases. Surgery may include: ? Prostatectomy. In this procedure, the prostate tissue is removed completely through an open incision or with a laparoscope or robotics. ? Transurethral resection of the prostate (TURP). In this procedure, a tool is inserted through the opening at the tip of the penis (urethra). It is used to cut away tissue of the inner core of the prostate. The pieces are removed through the same opening of the penis. This removes the blockage. ? Transurethral incision (TUIP). In this procedure, small cuts are made in the prostate. This lessens the prostate's pressure on the urethra. ? Transurethral microwave thermotherapy (TUMT). This procedure uses microwaves to create heat. The heat destroys and removes a small amount of prostate tissue. ? Transurethral needle ablation (TUNA). This procedure uses radio frequencies to destroy and remove a small amount of prostate tissue. ? Interstitial laser coagulation (ILC). This procedure uses a laser to destroy and remove a small amount of prostate tissue. ? Transurethral electrovaporization (TUVP). This procedure uses electrodes to destroy and remove a small amount of prostate tissue. ? Prostatic urethral lift. This procedure inserts an implant to push the lobes of the prostate away from the urethra. Follow these instructions at home: ? Take qyhk-qlw-ghkzgsp and prescription medicines only as told by your health care provider. ? Monitor your symptoms for any changes. Contact your health care provider with any changes. ? Avoid drinking large amounts of liquid before going to bed or out in public. ? Avoid or reduce how much caffeine or alcohol you drink. ? Give yourself time when you urinate. ? Keep all follow-up visits. This is important. Contact a health care provider if: ? You have unexplained back pain. ? Your symptoms do not get better with treatment. ? You develop side effects from the medicine (more content not included)... [facility] Office/Clinic Noteon 03-07-2023 Urology Office/Clinic Note Chief Complaint 2 month f/u with PSA HPI Staff 2 month f/u with PSA. Previous dx of prostatitis, BPH with urinary obstruction, family hx of prostate cancer (father) and family hx of kidney cancer. Current PSA done 02/11/23 is 0.42 and previous done 11/26/22 was 1.46. Pt continues taking Alfuzosin 10mg ER QD. Pt states that he has noticed after he takes the Alfuzosin he gets really warm as if he may be having a hot flash. Dysuria: no Incomplete bladder emptying: no Hematuria: no Frequency: every couple hours Urgency: no Nocturia: pt states he has not been getting up since starting the Alfuzosin Stream: Leaking: Post void dripping: no Wearing pads/ Depends: no Urge incontinence: no Stress incontinence: no Incontinence without Sensory Awareness: no Abdominal pain: no Flank pain: no Sexual complaints: no History of Present Illness Tests reviewed: reviewed UA, PSA I have reviewed the previous health record information and history for this patient from Dr. Granger. I have reviewed and verified the staff HPI to be accurate for this encounter. There have been no associated fever, chills, flank pain, or blood in the urine. Denies any urinary infections since last encounter. Review of Systems PHQ Score Initial Depression Screen Score: 0 ROS - Provider Constitutional: denies weight loss, denies hot flashes. Eyes: denies eye problems. Gastrointestinal: denies nausea, denies vomiting. Cardiovascular: denies chest pain or angina. Integumentary: no dryness Musculoskeletal: denies musculoskeletal symptoms. ENMT: denies otolaryngeal symptoms. Respiratory: no shortness of breath. Heme/Lymph: denies easy bleeding tendency, denies easy bruising tendency. Psychiatric: no confusion, no anxiety. Genitourinary: See HPI. Physical Exam Vitals & Measurements HR: 88(Peripheral) RR: 16 BP: 136/83 HT: 76 in HT: 193 cm WT: 178 kg WT: 391.6 lb BMI: 47.79 General Appearance: alert, no distress, well nourished, well developed male. Genitourinary: normal scrotum, normal testes, normal urethra, normal epididymis, normal vas deferens/spermatic cord. Flank Pain: none. Bladder: nonpalpable. Assessment/Plan 1. BPH with urinary obstruction (N40.1: Benign prostatic hyperplasia with lower urinary tract symptoms) PSA: 11/19/22 - 0.45 11/26/22 - 1.46 (elevated due to prostatitis) 02/11/23 - 0.42 Pt is currently taking Alfuzosin 10 mg ER QD. Reports that he had low BP when he first began taking it and has been feeling hot after taking medication. Pt states he stopped taking his BP medication. Pt to stop taking Alfuzosin, restart BP medication, and begin Dutasteride QD and Cialis QOD. Discussed the medication side effects, and the patient will monitor closely for these, as well as for symptom improvement. If severe side effects occur, the medication should be stopped and the office notified. Pt states his stream is strong and feels empty after voiding. Pt is doing well with no bothersome urinary sxs at this time. -Stop Alfuzosin -Restart BP medication -Begin Dutasteride 0.5mg QD and Cialis 20mg QOD Follow up in 3 months or sooner if needed. All questions/concerns were discussed. Pt to call the office if he encounters any issues prior. Pt acknowledges understanding. 2. Prostatitis (N41.9: Inflammatory disease of prostate, unspecified) UA dip & micro 06/01/22 - WBC 20-49, RBC 5-9. UCx 06/01/22 - >100,000 E. coli, mallory sensitive. UA dip & micro 06/15/22 - WBC 3-4, RBC 3-4. UCx 06/15/22 - Mixed skin containments. UA dip & micro 11/29/22 - WBC 10-19, RBC 3-4. UCx 11/29/22 - 30,000 E. coli, mallory sensitive. Pt took Doxycycline 100 mg bid x 30 days, which treated infection. UA today shows trace-intact blood. 3. Family history of prostate cancer in father (Z80.42: Family history of malignant neoplasm of prostate) 4. Family history of kidney cancer (Z80.51: Family history of malignant neoplasm of kidney) Follow-up With When Contact Information Mikel GRANGER MD, URL [facility] [address] [place] [phone] Additional Instructions: 3 mos (new med) Patient Education Benign Prostatic Hyperplasia I, Anali Banuelos, personally scribed for Dr. Granger on 03/07/2023 15:18:19. . Documentation recorded by the scribeAnali, accurately reflects the services(s) I performed and decisions made by me. Authenticated by Dr. Granger on 03/07/2023 15:20:21. Problem List/Past Medical History Ongoing BPH with urinary obstruction Family history of kidney cancer Family history of prostate cancer in father Hyperglycemia Hyperlipidemia Hypertension Hypothyroidism Prostatitis Sleep apnea Vitamin D deficiency Historical No qualifying data Procedure/Surgical History Colonoscopy, Repair of quadriceps tendon. Medications alfuzosin 10 mg ER Tab, 10 mg= 1 tab(s), Oral, Daily, 11 refills aspirin 81 mg Oral EC Tab, Oral, Da (more content not included)... Normal [facility] Comment on above: Result Comment: Elec tronically Signed By: Mikel GRANGER MD\.br\Date and Time Signed: 03/07/23 15:20 EDT\.br\Electronically Co-Signed By: Anali Banuelos\.br\Date and Time Co-Signed: 03/07/23 15:18 EDT Lab Reportson 02-28-2023 Lab Reports [id number] 0CD:127 Normal [facility] Tobacco Screening.on 023 Adult depression screening assessment No [facility] 250 DO Work Phone: Fall risk assessment c) Not medically indicated [facility] 250 DO Work Phone: Tobacco use status [facility] b) No [facility] 250 DO Work Phone: Consultation Noteon 01-14-20 Consultation Note [id number]. 00CD:127 Normal [facility] Lab Report[facility] 01-13-2023 Lab Reports [id number] 0CD:127 Normal [facility] Screenson 01-11-2023 Screens [id number]. [id number]:127 Normal [facility] Ambulatory Visit Summaryon 0 01-10-2023 Ambulatory Visit Summary CHEVY RAPP :1965 Visit Date:01/10/2023 Ambulatory Visit Instructions Your Diagnosis Prostatitis BPH with urinary obstruction Family history of prostate cancer in father Family history of kidney cancer Tests Performed Urnls Dip Stick Auto w/o Microscopy POC 60402 Your Care Team Attending Physician - Mikel GRANGER MD Primary Care Physician - Cheri Pringle DO This Is Your Medications List Contact prescribing physician if questions or concerns ascorbic acid (Vitamin C) aspirin (aspirin 81 mg Oral EC Tab) cholecalciferol (Vitamin D3) dofetilide (dofetilide 250 mcg oral capsule) magnesium gluconate (magnesium gluconate 250 mg oral tablet) olmesartan (olmesartan 20 mg Tab) omega-3 polyunsaturated fatty acids (Nature's Bounty Red Krill Oil) psyllium (Metamucil) Procedures Performed Colonoscopy, Repair of quadriceps tendon. Discharge Vitals Heart Rate (Peripheral) 75 Respiratory Rate 16 Blood Pressure 137/87 Height 193 cm Height 76 in Weight 177 kg Weight 389.4 lb BMI 47.52 What to do next You Need to Schedule the Following Appointments Follow Up with Mikel GRANGER MD, URL When: Where: [facility] [address] [place] [address]- Medications What How Much When Instructions Unchanged ascorbic acid (Vitamin C) Every day Contact prescribing physician if questions or concerns Unchanged aspirin (aspirin 81 mg Oral EC Tab) Every day Contact prescribing physician if questions or concerns Unchanged cholecalciferol (Vitamin D3) Contact prescribing physician if questions or concerns Unchanged dofetilide (dofetilide 250 mcg oral capsule) Contact prescribing physician if questions or concerns Unchanged magnesium gluconate (magnesium gluconate 250 mg oral tablet) 2 times a day Contact prescribing physician if questions or concerns Unchanged olmesartan (olmesartan 20 mg Tab) Contact prescribing physician if questions or concerns Unchanged omega-3 polyunsaturated fatty acids (Nature's Bounty Red Krill Oil) Every day Contact prescribing physician if questions or concerns Unchanged psyllium (Metamucil) Contact prescribing physician if questions or concerns Test Results Urnls Dip Stick Auto w/o Microscopy POC 82398 (01/10/2023) Bilirubin Urine Dipstick - Negative Blood Urine Dipstick - Trace-intact Glucose Urine Dipstick - Negative Ketones Urine Dipstick - Negative Leukocytes Urine Dipstick - Trace Nitrite Urine Dipstick - Negative Protein Urine Dipstick - Trace Specific Primrose Urine Dipstick - 1.020 Urine Appearance Urine Dipstick - Clear Urine Color Urine Dipstick - Yellow Urobilinogen Urine Dipstick - Normal 0.2-1 EU/dl pH Urine Dipstick - 6 Allergies penicillin (Unknown) Problems Ongoing - Any problem that you are currently receiving treatment for. BPH with urinary obstruction Family history of kidney cancer Family history of prostate cancer in father Hyperglycemia Hyperlipidemia Hypertension Hypothyroidism Prostatitis Sleep apnea Vitamin D deficiency Education [employer] Prostatitis Prostatitis is swelling or inflammation of the prostate gland, also called the prostate. This gland is about 1.5 inches wide and 1 inch high, and it is involved in making semen. The prostate is located below a man's bladder, in front of the rectum. There are four types of prostatitis: ? Chronic prostatitis (CP), also called chronic pelvic pain syndrome (CPPS). This is the most common type of prostatitis. It is associated with increased muscle tone in the area between the hip bones (pelvic area), around the prostate. This type is also known as a pelvic floor disorder. ? Chronic bacterial prostatitis. This type usually results from an acute bacterial infection in the prostate gland that keeps coming back or has not been treated properly. The symptoms are less severe than those caused by acute bacterial prostatitis, which lasts a shorter time. ? Asymptomatic inflammatory prostatitis. This type does not have symptoms and does not need treatment. This is diagnosed when tests are done for other disorders of the urinary tract or reproductive tract. ? Acute bacterial prostatitis. This type starts quickly and results from an acute bacterial infection in the prostate gland. It is usually associated with a bladder infection, high fever, and chills. This is the least common type of prostatitis. What are the causes? Bacterial prostatitis is caused by an infection from bacteria. Chronic nonbacterial prostatitis may be caused by: ? Factors related to the nervous system. This system includes thebrain, spinal cord, and nerves. ? An autoimmune response. This happens when the body's disease-fighting system attacks healthy tissue in the body by mistake. ? Psychological factors. These have to do with how the mind works. The causes of the other types of prostatitis (more content not included)... Normal [facility] Patient Educationon 01-11-20 Patient Education Infectious Disease Prostatitis Prostatitis is swelling or inflammation of the prostate gland, also called the prostate. This gland is about 1.5 inches wide and 1 inch high, and it is involved in making semen. The prostate is located below a man's bladder, in front of the rectum. There are four types of prostatitis: ? Chronic prostatitis (CP), also called chronic pelvic pain syndrome (CPPS). This is the most common type of prostatitis. It is associated with increased muscle tone in the area between the hip bones (pelvic area), around the prostate. This type is also known as a pelvic floor disorder. ? Chronic bacterial prostatitis. This type usually results from an acute bacterial infection in the prostate gland that keeps coming back or has not been treated properly. The symptoms are less severe than those caused by acute bacterial prostatitis, which lasts a shorter time. ? Asymptomatic inflammatory prostatitis. This type does not have symptoms and does not need treatment. This is diagnosed when tests are done for other disorders of the urinary tract or reproductive tract. ? Acute bacterial prostatitis. This type starts quickly and results from an acute bacterial infection in the prostate gland. It is usually associated with a bladder infection, high fever, and chills. This is the least common type of prostatitis. What are the causes? Bacterial prostatitis is caused by an infection from bacteria. Chronic nonbacterial prostatitis may be caused by: ? Factors related to the nervous system. This system includes thebrain, spinal cord, and nerves. ? An autoimmune response. This happens when the body's disease-fighting system attacks healthy tissue in the body by mistake. ? Psychological factors. These have to do with how the mind works. The causes of the other types of prostatitis are usually not known. What are the signs or symptoms? Symptoms of this condition depend on the type of prostatitis you have. Acute bacterial prostatitis Symptoms may include: ? Pain or burning during urination. ? Frequent and sudden urges to urinate. ? Trouble starting to urinate. ? Fever. ? Chills. ? Pain in your muscles or joints, lower back, or lower abdomen. Other types of prostatitis Symptoms may include: ? Sudden urges to urinate, or urinating often. ? Trouble starting to urinate. ? Weak urine stream. ? Dribbling after urination. ? Discharge coming from the penis. ? Pain in the testicles, the penis, or the tip of the penis. ? Pain in the area in front of the rectum and below the scrotum (perineum). ? Pain when ejaculating. How is this diagnosed? This condition may be diagnosed based on: ? A physical and medical exam. ? A digital rectal exam. For this, the health care provider may use a finger to feel the prostate. ? A urine test to check for bacteria. ? A semen sample or blood tests. ? Ultrasound. ? Urodynamic tests to check how your body handles urine. ? Cystoscopy to look inside your bladder or inside the part of your body that drains urine from the bladder (urethra). How is this treated? Treatment for this condition depends on the type of prostatitis. Treatment may involve: ? Medicines to relieve pain or inflammation, or to help relax your muscles. ? Physical therapy. ? Heat therapy. ? Biofeedback. These techniques help you control certain body functions. ? Relaxation exercises. ? Antibiotic medicine, if your condition is caused by bacteria. ? Sitz baths. These warm water baths help to relax your pelvic floor muscles, which helps to relieve pressure on the prostate. Follow these instructions at home: Medicines ? Take axfu-qes-ypnojfy and prescription medicines only as told by your health care provider. ? If you were prescribed an antibiotic medicine, take it as told by your health care provider. Do not stop using the antibiotic even if you start to feel better. Managing pain and swelling ? Take sitz baths as directed by your health care provider. For a sitz bath, sit in warm water that is deep enough to cover your hips and buttocks. ? If directed, apply heat to the affected area as often as told by your health care provider. Use the heat source that your health care provider recommends, such as a moist heat pack or a heating pad. ? Place a towel between your skin and the heat source. ? Leave the heat on for 20?30 minutes. ? Remove the heat if your skin turns bright red. This is especially important if you are unable to feel pain, heat, or cold. You may have a greater risk of getting burned. General instructions ? Do exercises as told by your health care provider, if you were prescribed physical therapy, biofeedback, or relaxation exercises. ? Keep all follow-up visits as told by your health care provider. This is important. Where to find more information ? National [place] of Diabetes and Digestive and Kidney Diseases: (more content not included)... Normal [facility] Automated erythrocytes count in urine sediment (number/area)Ordered By: Cheri Pringle on 12-13-2022 RBC Auto (Urine sed) [#/Area] 5-9 [HPF] 0-4 [facility] Automated leukocytes count i n urine sediment (number/area)Ordered By: Cheri Pringle on 12-13-2022 WBC Auto (Urine sed) [#/Area] 0-1 [HPF] 0-4 [facility] Automated urine color determ inationOrdered By: Cheri Pringle on 12-13-2022 Color (U) Yellow Normal Yellow [facility] Comment on above: Order Comment: Name Collection Type:: Collection Method Unknown Performed By: #### C UU, ADDONUAPLUS #### [address] Automated urine sediment karen cium oxalate crystal count by microscopy (number/high powOrdered By: Cheri Pringle on 12-13-2022 Calcium oxalate crystals LM.HPF (Urine sed) [#/Area] 4+ [HPF] [facility] Bilirubin Test strip Ql (U)O rdered By: Cheri Pringle on 12-13-2022 Bilirubin Ql (U) Negative Negative [facility] Dipstick & Microscopicon Dipstick & Microscopic No rth [facility] Other Dipstick and Microscopicon 0 12-13-2022 Appearance (U) Clear Normal Clear [facility] Comment on above: Order Comment: Name Collection Type:: Collection Method Unknown Performed By: #### C UU, ADDONUAPLUS #### [address] Bacteria,Urine None Seen Normal None Seen [facility] Comment on above: Order Comment: Name Collection Type:: Collection Method Unknown Performed By: #### C UU, ADDONUAPLUS #### [address] Bilirubin,Urine Negative Normal Negative [facility] Comment on above: Order Comment: Name Collection Type:: Collection Method Unknown Performed By: #### C UU, ADDONUAPLUS #### [address] Calcium Oxalate Crystals,Urine 4+ Normal [facility] Comment on above: Order Comment: Name Collection Type:: Collection Method Unknown Performed By: #### C UU, ADDONUAPLUS #### [address] Glucose Ql (U) Normal Normal Normal [facility] Comment on above: Order Comment: Name Collection Type:: Collection Method Unknown Performed By: #### C UU, ADDONUAPLUS #### [address] Hyaline Casts,Urine 0-8 Normal 0-8 [facility] Comment on above: Order Comment: Name Collection Type:: Collection Method Unknown Result Comment: PERF ORMED BY: [place] [address] PATHOLOGIST SENIOR PYTHON DEVELOPER YOSEF MCKEON M.D. Performed By: #### C UU, ADDONUAPLUS #### [facility] [address] [place] [address] Ketones Ql (U) Trace High Negative [facility] Comment on above: Order Comment: Name Collection Type:: Collection Method Unknown Performed By: #### C UU, ADDONUAPLUS #### [address] Leukocyte esterase Test strip Ql (U) Negative Normal Negative [facility] Comment on above: Order Comment: Name Collection Type:: Collection Method Unknown Performed By: #### C UU, ADDONUAPLUS #### [facility] [address] [place] [address] [place] Nitrite,Urine Negative Normal Negative [facility] Comment on above: Order Comment: Name Collection Type:: Collection Method Unknown Performed By: #### C UU, ADDONUAPLUS #### [facility] [address] [place] [address] Occult Blood,Urine Negative Normal Negative [facility] Comment on above: Order Comment: Name Collection Type:: Collection Method Unknown Performed By: #### C UU, ADDONUAPLUS #### [facility] [address] [place] [address] Othe Crystals,Urine None Seen Normal [facility] Comment on above: Order Comment: Name Collection Type:: Collection Method Unknown Performed By: #### C UU, ADDONUAPLUS #### [facility] [address] [place] [address] Protein,Urine Negative Normal Negative [facility] Comment on above: Order Comment: Name Collection Type:: Collection Method Unknown Performed By: #### C UU, ADDONUAPLUS #### [facility] [address] [place] [address] RBC,Urine 5-9 High 0-4 [facility] Comment on above: Order Comment: Name Collection Type:: Collection Method Unknown Performed By: #### C UU, ADDONUAPLUS #### [facility] [address] [place] [address] [place] Specificy Primrose,Urine 1.024 Normal 1.001-1.030 [facility] Comment on above: Order Comment: Name Collection Type:: Collection Method Unknown Performed By: #### C UU, ADDONUAPLUS #### [facility] [address] [place] [address] [place] Squamous Epithelial Cell,Urine 1-2 Normal 0-2 [facility] Comment on above: Order Comment: Name Collection Type:: Collection Method Unknown Performed By: #### C UU, ADDONUAPLUS #### [facility] [address] Urobilinogen,Urine Normal Normal Normal [facility] Comment on above: Order Comment: Name Collection Type:: Collection Method Unknown Performed By: #### C UU, ADDONUAPLUS #### [facility] [address] [place] [address] [place] WBC LM.HPF (Urine sed) [#/Area] 0 /[HPF] Normal 0-4 [facility] Comment on above: Order Comment: Name Collection Type:: Collection Method Unknown Performed By: #### C UU, ADDONUAPLUS #### [facility] [address] Ketones Auto test strip (U) [Mass/Vol]Ordered By: Cheri Pringle on 12-13-2022 Ketones (U) [Mass/Vol] Trace Negative [facility] - UrinalysisOrder ed By: Cheri Pringle on 12-13-2022 Hyaline casts LM Ql (Urine sed) 0-8 [LPF] 0-8 [facility] Nitrite Test strip Ql (U)Ord ered By: Cheri Pringle on 12-13-2022 Nitrite Ql (U) Negative Negative [facility] Protein Auto test strip (U) [Mass/Vol]Ordered By: Cheri Pringle on 12-13-2022 Protein (U) [Mass/Vol] Negative Negative [facility] Specific gravity Auto test s trip (U) [Rel density]Ordered By: Cheri Pringle on 12-13-2022 Specific gravity (U) [Rel density] 1.024 1.001-1.030 [facility] Squamous epithelial cells de tection in urine sediment by light microscopyOrdered By: Cheri Pringle on 12-13-2022 Epithelial cells.squamous LM Ql (Urine sed) 1-2 [HPF] 0-2 [facility] Urine Cultureon 12-13-2022 Bacteria identified Cx Nom (U) No Growth 2 Days PERFORMED BY: [place] [address] PATHOLOGIST SENIOR PYTHON DEVELOPER YOSEF MCKEON M.D. Normal [facility] Comment on above: Performed By: #### C UU, ADDONUAPLUS #### [facility] [address] [place] [id number] [place] Bacteria identified Cx Nom (U) [employer] Other Urine bacteria detection by automated methodOrdered By: Cheri Pringle on 12-13-2022 Bacteria Auto Ql (U) None seen None Seen [facility] Urine clarity by refractomet ry automatedOrdered By: Cheri Pringle on 12-13-2022 Clarity Refractometry automated (U) Clear Clear [facility] Urine glucose measurement by automated test strip (mass/volume)Ordered By: Cheri Pringle on 12-13-2022 Glucose Auto test strip (U) [Mass/Vol] Normal mg/dL Normal [facility] Urine hemoglobin detection b y automated test stripOrdered By: Cheri Pringle on 12-13-2022 Hemoglobin Auto test strip Ql (U) Negative Negative [facility] Urine leukocyte esterase det ection by automated test stripOrdered By: Cheri Pringle on 12-13-2022 Leukocyte esterase Auto test strip Ql (U) Negative Negative [facility] Urine pH measurement by auto mated test stripOrdered By: Cheri Pringle on 12-13-2022 pH (U) 6.5 [pH] Normal 5.0-9.0 [facility] Comment on above: Order Comment: Name Collection Type:: Collection Method Unknown Performed By: #### C UU, ADDONUAPLUS #### [facility] [address] [place] [id number] [place] Urine sediment crystal ident ification by light microscopyOrdered By: Cheri Pringle on 12-13-2022 Crystals LM Nom (Urine sed) None seen [HPF] [facility] Urobilinogen Auto test strip (U) [Mass/Vol]Ordered By: Cheri Pringle on 12-13-2022 Urobilinogen (U) [Mass/Vol] Normal mg/dL Normal [facility] Automated erythrocytes count in urine sediment (number/area)Ordered By: Cheri Pringle on 11-29-2022 RBC Auto (Urine sed) [#/Area] 3-4 [HPF] 0-4 [facility] Automated leukocytes count i n urine sediment (number/area)Ordered By: Cheri Pringle on 11-29-2022 WBC Auto (Urine sed) [#/Area] 10-19 [HPF] 0-4 [facility] Bilirubin Test strip Ql (U)O rdered By: Cheri Pringle on 11-29-2022 Bilirubin Ql (U) Negative Negative [facility] Color Auto (U)Ordered By: Xander Pringle on 11-29-2022 Color (U) Yellow Yellow [facility] Dipstick and Microscopicon 0 11-29-2022 Appearance (U) Clear Normal Clear [facility] Comment on above: Order Comment: Name Collection Type:: Collection Method Unknown Performed By: #### A DDONUAPLUS, CUU #### [place] [address] [place] Bacteria,Urine None Seen Normal None Seen [facility] Comment on above: Order Comment: Name Collection Type:: Collection Method Unknown Performed By: #### A DDONUAPLUS, CUU #### [place] [address] [place] Bilirubin,Urine Negative Normal Negative [facility] Comment on above: Order Comment: Name Collection Type:: Collection Method Unknown Performed By: #### A DDONUAPLUS, CUU #### [place] [address] [place] Color (U) Yellow Normal Yellow [facility] Comment on above: Order Comment: Name Collection Type:: Collection Method Unknown Performed By: #### A DDONUAPLUS, CUU #### [facility] [address] [place] [address] [place] Glucose Ql (U) Normal Normal Normal [facility] Comment on above: Order Comment: Name Collection Type:: Collection Method Unknown Performed By: #### A DDONUAPLUS, CUU #### [facility] [address] [place] [address] [place] Hyaline Casts,Urine 0-8 Normal 0-8 [facility] Comment on above: Order Comment: Name Collection Type:: Collection Method Unknown Performed By: #### A DDONUAPLUS, CUU #### [address] [place] [address] [place] Ketones Ql (U) Negative Normal Negative [facility] Comment on above: Order Comment: Name Collection Type:: Collection Method Unknown Performed By: #### A DDONUAPLUS, CUU #### [address] Leukocyte esterase Test strip Ql (U) 2+ High Negative [facility] Comment on above: Order Comment: Name Collection Type:: Collection Method Unknown Performed By: #### A DDONUAPLUS, CUU #### [address] Nitrite,Urine Negative Normal Negative [facility] Comment on above: Order Comment: Name Collection Type:: Collection Method Unknown Performed By: #### A DDONUAPLUS, CUU #### [address] Occult Blood,Urine Negative Normal Negative [facility] Comment on above: Order Comment: Name Collection Type:: Collection Method Unknown Performed By: #### A DDONUAPLUS, CUU #### [address] pH (U) 5.5 [pH] Normal 5.0-9.0 [facility] Comment on above: Order Comment: Name Collection Type:: Collection Method Unknown Performed By: #### A DDONUAPLUS, CUU #### [place] [address] [place] Protein (U) [Mass/Vol] 30 mg/dL High Negative [facility] Comment on above: Order Comment: Name Collection Type:: Collection Method Unknown Performed By: #### A DDONUAPLUS, CUU #### [place] [address] [place] RBC,Urine 3-4 Normal 0-4 [facility] Comment on above: Order Comment: Name Collection Type:: Collection Method Unknown Performed By: #### A DDONUAPLUS, CUU #### [place] [address] [place] Specificy Primrose,Urine 1.028 Normal 1.001-1.030 [facility] Comment on above: Order Comment: Name Collection Type:: Collection Method Unknown Performed By: #### A DDONUAPLUS, CUU #### [facility] [address] [place] [address] Sperm,Urine 1-2 Normal 0-2 [facility] Comment on above: Order Comment: Name Collection Type:: Collection Method Unknown Result Comment: PERF ORMED BY: [place] [address] PATHOLOGIST SENIOR PYTHON DEVELOPER YOSEF MCKEON M.D. Performed By: #### A DDONUAPLUS, CUU #### [facility] [address] [place] [address] Squamous Epithelial Cell,Urine 1-2 Normal 0-2 [facility] Comment on above: Order Comment: Name Collection Type:: Collection Method Unknown Performed By: #### A DDONUAPLUS, CUU #### [facility] [address] [place] [address] Urobilinogen,Urine Normal Normal Normal [facility] Comment on above: Order Comment: Name Collection Type:: Collection Method Unknown Performed By: #### A DDONUAPLUS, CUU #### [facility] [address] [place] [address] [place] WBC,Urine 10-19 High 0-4 [facility] Comment on above: Order Comment: Name Collection Type:: Collection Method Unknown Performed By: #### A DDONUAPLUS, CUU #### [facility] [address] [place] [address] Ketones Auto test strip (U) [Mass/Vol]Ordered By: Cheri Pringle on 11-29-2022 Ketones (U) [Mass/Vol] Negative Negative [facility] - UrinalysisOrder ed By: Cheri Pringle on 11-29-2022 Hyaline casts LM Ql (Urine sed) 0-8 [LPF] 0-8 [facility] Nitrite Test strip Ql (U)Ord ered By: Cheri Pringle on 11-29-2022 Nitrite Ql (U) Negative Negative [facility] Protein Auto test strip (U) [Mass/Vol]Ordered By: Cheri Pringle on 11-29-2022 Protein (U) [Mass/Vol] 30 mg/dL Negative [facility] Specific gravity Auto test s trip (U) [Rel density]Ordered By: Cheri Pringle on 11-29-2022 Specific gravity (U) [Rel density] 1.028 1.001-1.030 [facility] Spermatozoa detection in uri ne sediment by light microscopyOrdered By: Cheri Pringle on 11-29-2022 Spermatozoa LM Ql (Urine sed) 1-2 [HPF] 0-2 [facility] Squamous epithelial cells de tection in urine sediment by light microscopyOrdered By: Cheri Pringle on 11-29-2022 Epithelial cells.squamous LM Ql (Urine sed) 1-2 [HPF] 0-2 [facility] Urine Cultureon 11-29-2022 Bacteria identified Cx Nom (U) ORGANISM: Escherichia coli (O:ESCCOL) [place] Count 30,000 Aerobic PHILIPPE Charge ([id number]) --- SUSCEPTIBILITY -- ORGANISM: O:ESCCOL ANTIBIOTIC INTERPRETATION PHILIPPE Amikacin S <16 Amoxacillin/K Clavulanate S <8 Ampicillin S <8 Ampicillin/Sulbactam S <4 Aztreonam S <4 Cefazolin S <2 Cefepime S <2 Ceftazidime S <1 Ceftazidime/Avibactam S <4 Ceftolozane/Tazobactam S <2 Ceftriaxone S <1 Cefuroxime S <4 Ciprofloxacin S <0.25 Ertapenem S <0.5 Gentamicin S <2 Levofloxacin S <0.5 Meropenem S <1 Meropenem/Vaborbactam S <2 Nitrofurantoin S <32 Piperacillin/Tazobacta m S <8 Tetracycline S <4 Tigecycline S <2 Tobramycin S <2 Trimethoprim/Sulfameth oxazole S <0.5 S = SUSCEPTIBLE I = INTERMEDIATE R = RESISTANT BLANK = DATA NOT AVAILABLE, OR DRUG NOT ADVISABLE OR TESTED R* = RESISTANCE DUE TO EXTENDED SPECTRUM BETA-LACTAMASES ESBL = EXTENDED SPECTRUM BETA-LACTAMASE TFG = THYMIDINE-DEPENDENT STRAIN CASEY = BETA-LACTAMASE POSITIVE IB = INDUCIBLE BETA-LACTAMASE. APPEARS IN PLACE OF 'S' WITH SPECIES KNOWN TO POSSESS INDUCIBLE BETA-LACTAMASES. POTENTIALLY THEY MAY BECOME RESISTANT TO ALL B-LACTAM DRUGS. PERFORMED BY: [place] [address] PATHOLOGIST SENIOR PYTHON DEVELOPER YOSEF MCKEON M.D. Normal [facility] Comment on above: Performed By: #### A DDONUARANDY, CUU #### [address] Urine bacteria detection by automated methodOrdered By: Cheri Pringle on 11-29-2022 Bacteria Auto Ql (U) None seen None Seen [facility] Urine clarity by refractomet ry automatedOrdered By: Cheri Pringle on 11-29-2022 Clarity Refractometry automated (U) Clear Clear [facility] Urine culture routineOrdered By: Cheri Pringle on 11-29-2022 Bacteria identified Cx Nom (U) Escherichia coli [facility] Urine glucose measurement by automated test strip (mass/volume)Ordered By: Cheri Pringle on 11-29-2022 Glucose Auto test strip (U) [Mass/Vol] Normal mg/dL Normal [facility] Urine hemoglobin detection b y automated test stripOrdered By: Cheri Pringle on 11-29-2022 Hemoglobin Auto test strip Ql (U) Negative Negative [facility] Urine leukocyte esterase det ection by automated test stripOrdered By: Cheri Pringle on 11-29-2022 Leukocyte esterase Auto test strip Ql (U) 2+ Negative [facility] Urobilinogen Auto test strip (U) [Mass/Vol]Ordered By: Cheri Pringle on 11-29-2022 Urobilinogen (U) [Mass/Vol] Normal mg/dL Normal [facility] pH Auto test strip (U)Ordere d By: Cheri Pringle on 11-29-2022 pH (U) 5.5 [pH] 5.0-9.0 [facility] Office Visit (Cardiology)on 07-02-2022 Follow-up visit Diagnoses/Problems Assessed Paroxysmal atrial fibrillation (427.31) (I48.0) Morbid obesity with BMI of 45.0-49.9, adult (278.01,V85.42) (E66.01,Z68.42) Hypertension, benign (401.1) (I10) Never a smoker Orders Morbid obesity with BMI of 45.0-49.9, adult Healthy Weight Tips; Status:Complete - Retrospective Authorization; Done: 02Jul2022 Some eating tips that can help you lose weight.; Status:Complete - Retrospective Authorization; Done: 02Jul2022 PAC (premature atrial contraction), Paroxysmal atrial fibrillation Renew: Aspirin EC 81 MG Oral Tablet Delayed Release; TAKE 1 TABLET DAILY Paroxysmal atrial fibrillation IO EKG Electrocardiogram- 12 Lead; Status:Complete; Done: 02Jul2022 SocHx: Never a smoker Tobacco Use Screening; Status:Complete; Done: 02Jul2022 Patient Instructions Please bring all medicines, vitamins, and herbal supplements with you when you come to the office. Prescriptions will not be filled unless you are compliant with your follow up appointments or have a follow up appointment scheduled as per instruction of your physician. Refills should be requested at the time of your visit. Follow up in 6 months Chief Complaint AFTAB RAPP is being seen for a 6 month follow-up of. History of Present Illness Patient returns in follow-up of problems as noted. He is doing well. He has had no paroxysms of atrial fibrillation and he believes he could tell if or when he is out of rhythm. Because of this we recommend continued therapy as is. Blood pressure appears to be well controlled because of this no adjustments in therapy are necessary. An EKG was done today to assess QT interval and risk for proarrhythmia (due to dofetilide) and it appears that risk of this development is low based upon his current measured QT interval. 1 As before the merits of diet exercise and weight loss were advocated. 1 Amended By: Maged Morrell; Jul 02 2022 4:39 PM ESTSurgical History Problems History of Carpal tunnel surgery History of Colonoscopy Managed By: Rod VINSON, Yves Thomason (Gastroenterology) History of Leg surgery History of [place] tooth extraction Current Meds Medication NameInstruction Aspirin EC 81 MG Oral Tablet Delayed ReleaseTAKE 1 TABLET DAILY. Dofetilide 250 MCG Oral CapsuleTAKE 1 CAPSULE Every twelve hours EPINEPHrine 0.3 MG/0.3ML Injection Solution Auto-injectorinject 0.3 milliliters intramuscularly in OUTER THIGH and HOLD fo... (REFER TO PRESCRIPTION NOTES). Tyree Oil 1000 MG Oral CapsuleTAKE 1 CAPSULE Daily Magnesium 250 MG Oral TabletTake 1 tablet twice daily Metamucil Oral [place] directed Olmesartan Medoxomil 20 MG Oral TabletTAKE 1 TABLET DAILY. Vitamin C 1000 MG Oral TabletTAKE 1 TABLET DAILY. Vitamin D3 50 MCG (1999) Oral TabletTAKE 2 TABLET Daily Allergies Medication Penicillins Allergy; Rash; Updated By: Cinthia Moncada; 09/08/2021 11:21:35 AM Social History Problems Never a smoker No alcohol use No caffeine use No illicit drug use Review of Systems Constitutional: not feeling tired. Eyes: no eyesight problems. ENT: no hearing loss and no nosebleeds. Cardiovascular: no intermittent leg claudication and as noted in HPI. Respiratory: no chronic cough and no shortness of breath. Gastrointestinal: no change in bowel habits and no blood in stools. Genitourinary: no urinary frequency and no hematuria. Skin: no skin rashes. Neurological: no seizures and no frequent falls. Psychiatric: no depression and not suicidal. All other systems have been reviewed and are negative for complaint. Vitals Vital Signs Recorded: 02Jul2022 03:16PMRecorded: 02Jul2022 02:57PM [id number], LUE, Fhxaqdm639, LUE, Sitting Vwtnwitpn90, LUE, Xcucuuw97, LUE, Sitting Heart Rate72, Apical Height6 ft 4 in Xqncup970 lb BMI Nhzoitjxaj20.81 kg/m2 BSA Calculated2.98 Tobacco Useb) No EKG done in office today. Physical Exam Constitutional: alert and in no acute distress. Eyes: no erythema, swelling or discharge from the eye . Neck: neck is supple, symmetric, trachea midline, no masses and no thyromegaly . Pulmonary: no increased work of breathing or signs of respiratory distress and lungs clear to auscultation. Cardiovascular: carotid pulses 2+ bilaterally with no bruit , JVP was normal, no thrills , regular rhythm, normal S1 and S2, no murmurs , pedal pulses 2+ bilaterally and no edema . Abdomen: abdomen non-tender, no masses and no hepatomegaly . Skin: skin warm and dry, normal skin turgor . Psychiatric judgment and insight is normal and oriented to person, place and time . Signatures Electronically signed by : Maged Morrell MD; Jul 02 2022 4:40PM EST (Author) Normal [facility] Tobacco Screening.on 022 Tobacco use status CPHS b) No [facility] [facility] DO Work Phone: Automated erythrocytes count in urine sediment (number/area)Ordered By: Cheri Pringle on 06-15-2022 RBC Auto (Urine sed) [#/Area] 3-4 [HPF] 0-4 [facility] Automated leukocytes count i n urine sediment (number/area)Ordered By: Cheri Pringle on 06-15-2022 WBC Auto (Urine sed) [#/Area] 3-4 [HPF] 0-4 [facility] Bilirubin Test strip Ql (U)O rdered By: Cheri Pringle on 06-15-2022 Bilirubin Ql (U) Negative Negative [facility] Color Auto (U)Ordered By: Xander Pringle on 06-15-2022 Color (U) Yellow Yellow [facility] Ketones Auto test strip (U) [Mass/Vol]Ordered By: Cheri Pringle on 06-15-2022 Ketones (U) [Mass/Vol] Negative Negative [facility] Laboratory - UrinalysisOrder ed By: Cheri Pringle on 06-15-2022 Hyaline casts LM Ql (Urine sed) 0-8 [LPF] 0-8 [facility] Nitrite Test strip Ql (U)Ord ered By: Cheri Pringle on 06-15-2022 Nitrite Ql (U) Negative Negative [facility] Protein Auto test strip (U) [Mass/Vol]Ordered By: Cheri Pringle on 06-15-2022 Protein (U) [Mass/Vol] Negative Negative [facility] Specific gravity Auto test s trip (U) [Rel density]Ordered By: Cheri Pringle on 06-15-2022 Specific gravity (U) [Rel density] 1.026 1.001-1.030 [facility] Squamous epithelial cells de tection in urine sediment by light microscopyOrdered By: Cheri Pringle on 06-15-2022 Epithelial cells.squamous LM Ql (Urine sed) 0-1 [HPF] 0-2 [facility] Urine bacteria detection by automated methodOrdered By: Cheri Pringle on 06-15-2022 Bacteria Auto Ql (U) None seen None Seen [facility] Urine clarity by refractomet ry automatedOrdered By: Cheri Pringle on 06-15-2022 Clarity Refractometry automated (U) Clear Clear [facility] Urine glucose measurement by automated test strip (mass/volume)Ordered By: Cheri Pringle on 06-15-2022 Glucose Auto test strip (U) [Mass/Vol] Normal mg/dL Normal [facility] Urine hemoglobin detection b y automated test stripOrdered By: Cheri Pringle on 06-15-2022 Hemoglobin Auto test strip Ql (U) Negative Negative [facility] Urine leukocyte esterase det ection by automated test stripOrdered By: Cheri Pringle on 06-15-2022 Leukocyte esterase Auto test strip Ql (U) 1+ Negative [facility] Urobilinogen Auto test strip (U) [Mass/Vol]Ordered By: Cheri Pringle on 06-15-2022 Urobilinogen (U) [Mass/Vol] Normal mg/dL Normal [facility] pH Auto test strip (U)Ordere d By: Cheri Pringle on 06-15-2022 pH (U) 5.5 [pH] 5.0-9.0 [facility] Urine culture routineOrdered By: Cheri Pringle on 06-04-2022 Bacteria identified Cx Nom (U) Escherichia coli [facility] Automated erythrocytes count in urine sediment (number/area)Ordered By: Cheri Pringle on 06-01-2022 RBC Auto (Urine sed) [#/Area] 5-9 [HPF] 0-4 [facility] Automated leukocytes count i n urine sediment (number/area)Ordered By: Cheri Pringle on 06-01-2022 WBC Auto (Urine sed) [#/Area] 20-49 [HPF] 0-4 [facility] Bilirubin Test strip Ql (U)O rdered By: Cheri Pringle on 06-01-2022 Bilirubin Ql (U) Negative Negative [facility] Color Auto (U)Ordered By: Xander Pringle on 06-01-2022 Color (U) Yellow Yellow [facility] Dipstick & Microscopicon Dipstick & Microscopic No [facility] Other Ketones Auto test strip (U) [Mass/Vol]Ordered By: Cheri Pringle on 06-01-2022 Ketones (U) [Mass/Vol] Negative Negative [facility] Laboratory - UrinalysisOrder ed By: Cheri Pringle on 06-01-2022 Hyaline casts LM Ql (Urine sed) 9-19 [LPF] 0-8 [facility] Nitrite Test strip Ql (U)Ord ered By: Cheri Pringle on 06-01-2022 Nitrite Ql (U) Positive Negative [facility] Protein Auto test strip (U) [Mass/Vol]Ordered By: Cheri Pringle on 06-01-2022 Protein (U) [Mass/Vol] Trace mg/dL Negative [facility] Specific gravity Auto test s trip (U) [Rel density]Ordered By: Cheri Pringle on 06-01-2022 Specific gravity (U) [Rel density] 1.021 1.001-1.030 [facility] Squamous epithelial cells de tection in urine sediment by light microscopyOrdered By: Cheri Pringle on 06-01-2022 Epithelial cells.squamous LM Ql (Urine sed) 1-2 [HPF] 0-2 [facility] Urine 10 SGon 06-01-2022 Albumin DL <= 20 mg/L (U) [Mass/Vol] TRACE [employer] Other Albumin DL <= 20 mg/L (U) [Mass/Vol] LARGE [employer] Other Urine 10 SG Negative [facility] Other Urine 10 SG 1.005 [employer] Other Urine 10 SG LARGE [employer] Other Urine 10 SG 0.2 [employer] Other Urine 10 SG Positive [employer] Other Urine Cultureon 06-01-2022 Urine Culture >100,000 [employer] Other Urine Culture <16 Susceptible [employer] Other Urine Culture <8 Susceptible [employer] Other Urine Culture <4 Susceptible [employer] Other Urine Culture <2 Susceptible [employer] Other Urine Culture <1 Susceptible [employer] Other Urine Culture <0.5 Susceptible [employer] Other Urine Culture <32 Susceptible [employer] Other Urine Culture <2/38 Susceptible [employer] Other Urine bacteria detection by automated methodOrdered By: Cheri Pringle on 06-01-2022 Bacteria Auto Ql (U) 4+ None Seen [facility] Urine clarity by refractomet ry automatedOrdered By: Cheri Pringle on 06-01-2022 Clarity Refractometry automated (U) Cloudy Clear [facility] Urine glucose measurement by automated test strip (mass/volume)Ordered By: Cheri Pringle on 06-01-2022 Glucose Auto test strip (U) [Mass/Vol] Normal mg/dL Normal [facility] Urine hemoglobin detection b y automated test stripOrdered By: Cheri Pringle on 06-01-2022 Hemoglobin Auto test strip Ql (U) 3+ Negative [facility] Urine leukocyte esterase det ection by automated test stripOrdered By: Cheri Pringle on 06-01-2022 Leukocyte esterase Auto test strip Ql (U) 4+ Negative [facility] Urine pH measurement by auto mated test stripOrdered By: Cheri Pringle on 06-01-2022 pH (U) 6.0 [pH] 5.0-9.0 [facility] Urobilinogen Auto test strip (U) [Mass/Vol]Ordered By: Cheri Pringle on 06-01-2022 Urobilinogen (U) [Mass/Vol] Normal mg/dL Normal [facility] Office Visit (Cardiology)on 12-09-2021 Follow-up visit Diagnoses/Problems Assessed PAC (premature atrial contraction) (427.61) (I49.1) Hypertension, benign (401.1) (I10) Morbid obesity with BMI of 45.0-49.9, adult (278.01,V85.42) (E66.01,Z68.42) Paroxysmal atrial fibrillation (427.31) (I48.0) Never a smoker Orders Hypertension, benign Start: Olmesartan Medoxomil 20 MG Oral Tablet; TAKE 1 TABLET DAILY Morbid obesity with BMI of 45.0-49.9, adult Healthy Weight Tips; Status:Complete - Retrospective Authorization; Done: [id number] Some eating tips that can help you lose weight.; Status:Complete - Retrospective Authorization; Done: [id number] PAC (premature atrial contraction), Paroxysmal atrial fibrillation Renew: Aspirin EC 81 MG Oral Tablet Delayed Release; TAKE 1 TABLET DAILY Paroxysmal atrial fibrillation IO EKG Electrocardiogram- 12 Lead; Status:Complete; Done: [id number] SocHx: Never a smoker Tobacco Use Screening; Status:Complete; Done: [id number] Unlinked Stop: Olmesartan Medoxomil 40 MG Oral Tablet Patient Instructions By signing my name below, IJosiane LPN, Scribe, attest that this documentation has been prepared under the direction and in the presence of Dr. Maged Morrell MD. Please bring all medicines, vitamins, and herbal supplements with you when you come to the office. Prescriptions will not be filled unless you are compliant with your follow up appointments or have a follow up appointment scheduled as per instruction of your physician. Refills should be requested at the time of your visit. Follow up in [ 6 -9 ] months Chief Complaint AFTAB RAPP is being seen for follow-up of a hospitalization for. History of Present Illness Patient returns in follow-up of problems as noted. He is doing well. He has had no breakthroughs of atrial fibrillation but from time to time has some PACs and or palpitation. He was educated and reassured in this regard. His blood pressure appears to be well controlled because of this no further adjustments in therapy are necessary. We did advocate the merits of diet exercise and weight loss. Surgical History Problems History of Carpal tunnel surgery History of Colonoscopy Managed By: Rod VINSON, Yves Thomason (Gastroenterology) History of Leg surgery History of [place] tooth extraction Current Meds Medication NameInstruction Aspirin EC 81 MG Oral Tablet Delayed ReleaseTAKE 1 TABLET DAILY. Dofetilide 250 MCG Oral CapsuleTAKE 1 CAPSULE Every twelve hours Krill Oil 1000 MG Oral CapsuleTAKE 1 CAPSULE Daily Magnesium 250 MG Oral TabletTake 1 tablet twice daily Metamucil Oral [place] directed Olmesartan Medoxomil 40 MG Oral Tablet Vitamin C 1000 MG Oral TabletTAKE 1 TABLET DAILY. Vitamin D (Cholecalciferol) 50 MCG (1999 [place]) Oral CapsuleTAKE 1 CAPSULE Daily Vitamin D3 50 MCG (1999 [place]) Oral TabletTAKE 2 TABLET Daily Allergies Medication Penicillins Allergy; Rash; Updated By: Cinthia Moncada; 09/08/2021 11:21:35 AM Social History Problems Never a smoker No alcohol use No caffeine use No illicit drug use Review of Systems Constitutional: not feeling tired. Eyes: no eyesight problems. ENT: no hearing loss and no nosebleeds. Cardiovascular: no intermittent leg claudication and as noted in HPI. Respiratory: no chronic cough and no shortness of breath. Gastrointestinal: no change in bowel habits and no blood in stools. Genitourinary: no urinary frequency and no hematuria. Skin: no skin rashes. Neurological: no seizures and no frequent falls. Psychiatric: no depression and not suicidal. All other systems have been reviewed and are negative for complaint. Vitals Vital Signs Recorded: 09Dec2021 01:33PM Heart Rate56, Apical Xwnizmey317, LUE, Sitting Pwwawoyrf59, LUE, Sitting Height6 ft 4 in Dvgefp364 lb BMI Iwqoihmrin31.2 kg/m2 BSA Calculated2.96 Tobacco Useb) No PHQ-2 #1. Over the last 2 weeks have you felt down, depressed or hopeless? (If yes, answer PHQ-9 below)No PHQ-2 #2. Over the last 2 weeks have you felt little interest or pleasure in doing things? (If yes, answer PHQ-9 below)No Fall Screeninga) No falls within the last year EKG done in office today Physical Exam Constitutional: alert and in no acute distress. Eyes: no erythema, swelling or discharge from the eye . Neck: neck is supple, symmetric, trachea midline, no masses and no thyromegaly . Pulmonary: no increased work of breathing or signs of respiratory distress and lungs clear to auscultation. Cardiovascular: carotid pulses 2+ bilaterally with no bruit , JVP was normal, no thrills , regular rhythm, normal S1 and S2, no murmurs , pedal pulses 2+ bilaterally and no edema . Abdomen: abdomen non-tender, no masses and no hepatomegaly . Skin: skin warm and dry, normal skin turgor . Psychiatric judgment and insight is normal and oriented to person, place and time . Signatures Electronically signed by : Maged Morrell MD; Dec 09 2021 5:44PM EST (Author) Normal [facility] Tobacco Screening.on Adult depression screening assessment No [facility] 250 DO Work Phone: Fall risk assessment a) No falls within the last year [facility] 250 DO Work Phone: Tobacco use status CPHS b) No [facility] 250 DO Work Phone: Office Visit (Cardiology)on 10-02-2021 Follow-up visit Diagnoses/Problems Assessed Atrial fibrillation (427.31) (I48.91) Hypertension, benign (401.1) (I10) Never a smoker Morbid obesity with BMI of 45.0-49.9, adult (278.01,V85.42) (E66.01,Z68.42) Orders Atrial fibrillation IO EKG Electrocardiogram- 12 Lead; Status:Complete; Done: [id number] Morbid obesity with BMI of 45.0-49.9, adult Healthy Weight Tips; Status:Complete - Retrospective Authorization; Done: [id number] SocHx: Never a smoker Tobacco Use Screening; Status:Complete; Done: [id number] Patient Instructions Please bring all medicines, vitamins, and herbal supplements with you when you come to the office. Prescriptions will not be filled unless you are compliant with your follow up appointments or have a follow up appointment scheduled as per instruction of your physician. Refills should be requested at the time of your visit. Patent to stop Sotalol on prior to Drugload of Dofetilide 250 mcg BID. Will be admitted on Monday 10/09 AND discharged on Tuesday. They priced medication to be 45 cent per day Follow up in 3-4 weeks Chief Complaint AFTAB RAPP is being seen for a 1 week follow-up of. History of Present Illness Patient returns in follow-up of problems as noted. In the interim he said a lot of breakthrough arrhythmias. Apparently he was very symptomatic on low to moderate dose sotalol therapy and he cut the dose in half. He states this is all he can take. He is noted to be rather bradycardic on the small dose because of this as well as his intolerance to the medication at a higher dose we discussed other options. Ultimately we suggested dofetilide therapy. The reason and rationale for this approach was explained to him in detail and apparently he had some previsit discussion with the nurse practitioner along similar lines. He is symptomatic with the atrial fibrillation because of this we will make every effort to restore and maintain rhythm with dofetilide. He also has a pending appointment with interventional electrophysiology and I encouraged him to keep that appointment because if in fact he proves intolerant to this approach as well he most likely will require ablation. Review of other problems demonstrates that his blood pressure is adequately controlled for the time being. He has no angina or heart failure symptoms at the present time. The merits of diet and weight loss were reviewed. Surgical History Problems History of Carpal tunnel surgery History of Colonoscopy Managed By: Rod VINSON, Yves Thomason (Gastroenterology) History of Leg surgery History of [place] tooth extraction Current Meds Medication NameInstruction Eliquis 5 MG Oral TabletTake 1 tablet twice daily Magnesium 250 MG Oral TabletTake 1 tablet twice daily Sotalol HCl - 120 MG Oral TabletTAKE 0.5 TABLET Twice daily Vitamin C 1000 MG Oral TabletTAKE 1 TABLET DAILY. Vitamin D (Cholecalciferol) 50 MCG (1999 [place]) Oral CapsuleTAKE 1 CAPSULE Daily Vitamin D3 50 MCG (2000 [place]) Oral TabletTAKE 2 TABLET Daily Allergies Medication Penicillins Allergy; Rash; Updated By: Cinthia Moncada; 09/08/2021 11:21:35 AM Social History Problems Never a smoker No alcohol use No caffeine use No illicit drug use Review of Systems Constitutional: not feeling tired. Eyes: no eyesight problems. ENT: no hearing loss and no nosebleeds. Cardiovascular: no intermittent leg claudication and as noted in HPI. Respiratory: no chronic cough and no shortness of breath. Gastrointestinal: no change in bowel habits and no blood in stools. Genitourinary: no urinary frequency and no hematuria. Skin: no skin rashes. Neurological: no seizures and no frequent falls. Psychiatric: no depression and not suicidal. All other systems have been reviewed and are negative for complaint. Vitals Vital Signs Recorded: [id number] 12:41PM Heart Rate48, Apical Cfvajaqy831, LUE, Sitting Bczhxdrvz82, LUE, Sitting Height6 ft 4 in Xddctx205 lb BMI Oivklbjaaf92.45 kg/m2 BSA Calculated2.97 Tobacco Useb) No PHQ-2 #1. Over the last 2 weeks have you felt down, depressed or hopeless? (If yes, answer PHQ-9 below)No PHQ-2 #2. Over the last 2 weeks have you felt little interest or pleasure in doing things? (If yes, answer PHQ-9 below)No Fall Screeningc) Not medically indicated EKG COMPLETED IN OFFICE Physical Exam Constitutional: alert and in no acute distress. Eyes: no erythema, swelling or discharge from the eye . Neck: neck is supple, symmetric, trachea midline, no masses and no thyromegaly . Pulmonary: no increased work of breathing or signs of respiratory distress and lungs clear to auscultation. Cardiovascular: carotid pulses 2+ bilaterally with no bruit , JVP was normal, no thrills , regular rhythm, normal S1 and S2, no murmurs , pedal pulses 2+ bilaterally and no edema . Abdomen: abdomen non-tender, no masses and no hepatomegaly . Skin: skin warm and dry, normal skin turgor . Psychiatric judgment and insight is normal and or (more content not included)... Normal [facility] Tobacco Screening.on 022 Adult depression screening assessment No [facility] 250 DO Work Phone: Fall risk assessment c) Not medically indicated [facility] 250 DO Work Phone: Tobacco use status CP b) No [facility] 250 DO Work Phone: Office Visit (Cardiology)on 09-21-2021 Follow-up visit Diagnoses/Problems Assessed Atrial fibrillation (427.31) (I48.91) PAF Initial diagnosis Jul 2021 hospitalization Sotalol is not efficacious - unable to increase due to bradycardia ECG in office underlying SB with PAF - consistent with Aug 2021 Holter Highly symptomatic CHADS VASc 1 - due to increase fleeting PAF will err on side of caution and initiate Eliquis 5mg BID until NSR is maintained Sleep apnea (780.57) (G47.30) Compliant with CPAP (newer machine) Echocardiogram abnormal (793.2) (R93.1) Jul 2021 Echo LVEF 5-60% LA mild LVH mild MR none Morbid obesity with BMI of 45.0-49.9, adult (278.01,V85.42) (E66.01,Z68.42) Reviewed the merits of healthy lifestyle choices on overall cardiovascular health. Hypertension, benign (401.1) (I10) Elevated in office He is adament it is optimal at home Orders Atrial fibrillation Stop: Aspirin EC 81 MG Oral Tablet Delayed Release Cardiology - Electrophysiology Referral Evaluation and Treatment Evaluate AND Treat Atrial Fib Status: Hold For - Scheduling Requested for: 21Sep2021 Start: Eliquis 5 MG Oral Tablet; Take 1 tablet twice daily Patient Instructions Please bring all medicines, vitamins, and herbal supplements with you when you come to the office. Prescriptions will not be filled unless you are compliant with your follow up appointments or have a follow up appointment scheduled as per instruction of your physician. Refills should be requested at the time of your visit. PLAN: Through informed decision making process incorporating patients unique circumstances, the following treatment plan will be initiated: 1. Prescription drug management of cardiovascular medication for efficacy, adherence to treatment, side effect assessment and polypharmacy. Current treatment clinically warranted and to continue with following modifications: - Start Eliquis 5mg twice daily (samples provided) - Stop Aspirin 2. Please check pharmacy charles- please have when you come back to see Dr. Morrell Multaq 400mg twice daily Tikosyn 250mcg twice daily 3. I will start referral process to Dr. Trent to discuss ablation 4. Return for follow-up; in the interim, contact the office if new symptoms arise. Dr. Morrell in one week Encourage healthy lifestyle choices including: - Heart Health Diet: eat plenty of nutrient-rich foods (fruits and veggies, whole grains, lean poultry and fish). Avoid saturated fats, trans fats and excess sodium and sugar. - Get at least 150 minutes per week of moderate-intensity aerobic activity. Brisk walking (at least 2.5 miles per hour), water aerobics, gardening, biking slower than 10 miles per hours. Any amount of movement is better than none. The simplest way to get moving and improve your health is to start walking. It's free, easy and can be done just about anywhere, even in place. Even if you have been sedentary for years, today is the day you can begin to make healthy changes in your life. Chief Complaint I am tired AFTAB RAPP is being seen for follow-up of a hospitalization for atrial fibrillation. He is ambulatory with steady gait, accompanied by . July 2021: Patient was recently hospitalized at [facility]. The patient was seen in Cardiology consult with subsequent cardiovascular management by [facility]. Hospitalization records have been reviewed. Reason for Cardiology Consultation: afib Consulting Sound Effects Manager: Dr. Morrell Cardiovascular testing: echo Changes to cardiovascular medical regimen at time of discharge: sotalol 120mg BID Discharge disposition: Home At f/u ECG visit - ECG was difficult to discern. Repeat Holter PVC/Couplets, 40% supraventricular with PAF. Reports heart rates at home 'low - sometimes high 20s (on pulse ox) - psuedobradycardia Can feel going in/out t/o the day Compliant with sotalol +AWAIS compliant with CPAP -new machine BP at home 'good' ETOH: none Caffeine: none Chest 'hurts' sometimes last all day. 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 Had been having prior to presentation to the ER with negative cardiac enzymes in setting of HR 170. Cardiac Risk: 2017 Calcium Score 13 Treated HTN 3 years Unknown lipids No DM but 'was close' Non-smoker Neg family history premature CAD in primary relatives. No pulmonary treatment (maybe asthma as a child) CHADS VASc : 1 (htn) History of Present Illness The patient presents with paroxysmal atrial fibrillation. The treatment strategy for this patient is rhythm control. He states his atrial fibrillation has been poorly controlled since the last visit. Symptoms: worsened palpitations, stable chest pain, worsened exercise intolerance, stable dyspnea on exertion and stable dizziness. Associated symptoms include no syncope. Risks: no increased risk for falling. Medications: the patient is adherent with his medication regimen. He denies medicatio (more content not included)... Normal [facility] Tobacco Screening.on 022 Tobacco use status [facility] b) No [facility] 250 DO Work Phone: Cardiovasc Arrhythmia Result son 08-10-2021 Cardiovasc Arrhythmia Results Reason For Visit Reason for Visit: Holter Monitor: AFTAB is here for the application of a 48 hour Holter monitor. Ordering Physician: Carmen Doe NP Diagnosis: afiv rvr [facility] equipment agreement signed. AFTAB understands monitor is to be returned on: 08/12/2021 Monitor number [id number] applied. Holter monitor printed and placed on [facility] desk to dictate. Patient Discussion/Summary Patient underwent 48-hour Holter monitoring for history of atrial fibrillation. The following observations are made: 1. Patient is in sinus rhythm with ventricular rates ranging between 34 and 171 bpm. The average heart rate is 66 bpm. The longest pause is 2.5 seconds. 2. There were 2439 ventricular ectopic beats noted. These were predominantly isolated beats although there were 279 couplets and 12 triplets. 3. There were 46,914 supraventricular ectopic beats noted. This represents 40.1% overall ventricular activity. Patient demonstrated 4987 pairs as well as 4438 runs ranging in length from 3-41 beats at rates of 241 bpm. Review of these runs suggest paroxysms of atrial fibrillation. 4. There were no symptoms or complaints. Future Appointments Date/TimeProviderSpeci altySite 09/02/2021 08:00 Carmen Graves [id number]-[id number] [facility] [address] 250 DO Signatures Electronically signed by : Fatoumata Ji MD; Aug 10 2021 4:03PM EST Electronically signed by : Maged Morrell MD; Aug 23 2021 3:41PM EST (Author) Normal Touchworks Covid-19 PCR (CVDTBH)on 07-22 EUA Statement SEE BELOW Normal [facility] Comment on above: Result Comment: This test is not yet approved or cleared by the [place] FDA. When there are no FDA-approved or cleared tests available, and other criteria are met, FDA can make tests available under an emergency access mechanism called an Emergency Use Authorization (EUA). The EUA for this test is supported by the [place] of Health and Human Service?s (HHS?s) declaration that circumstances exist to justify the emergency use of in vitro diagnostics for the detection and/or diagnosis of the virus that causes COVID-19. This EUA will remain in effect (meaning this test can be used) for the duration of the COVID-19 declaration justifying emergency of IVDs, unless it is terminated or revoked by FDA (after which the test may no longer be used). When diagnostic testing is negative, the possibility of a false negative should be considered in the context of a patients recent exposures and the presence of clinical signs and symptoms consistent with SARS-CoV-2. Performed By: #### C VDTBH #### [facility] [address] [place] [id number] Nathaniel Blackwell SARS-CoV-2 (COVID-19) RNA MELVA+probe Ql (Unsp spec) Not detected Normal NOT DETECTED [facility] Comment on above: Result Comment: This test is not yet approved or cleared by the [place] FDA. When there are no FDA-approved or cleared tests available, and other criteria are met, FDA can make tests available under an emergency access mechanism called an Emergency Use Authorization (EUA). The EUA for this test is supported by the [place] of Health and Human Service's (HHS's) declaration that circumstances exist to justify the emergency use of in vitro diagnostics for the detection and/or diagnosis of the virus that causes COVID-19. This EUA will remain in effect (meaning this test can be used) for the duration of the COVID-19 declaration justifying emergency of IVDs, unless it is terminated or revoked by FDA (after which the test may no longer be used). Performed By: #### C VDTBH #### [facility] [address] [place] [id number] Nathaniel Blackwell PROGRESSon 06-11-2019 PROGRESS HNO ID: [id number] Author: Bandar Bush Service: ? Author Type: Physician Type: Progress Notes Filed: 06/11/2019 8:40 AM Note Text: The patient was accompanied to the office by his spouse. 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 He sustained a quadriceps rupture which was subsequently repaired. He had a uneventful postoperative. The albeit the one in which she never regained the sufficient flexion in the right knee to permit easy access in and out of vehicles or getting up from a seated position. Loss of motion has been in position and he also notes discomfort in the anterior aspect of the right knee with any attempted knee flexion up. The in further questioning the patient disclosed 65 min were required to facilitate his rescue from the roof. His weight has been 400 pounds for several years. Physical examination the patient is a massive Boykin chested gentleman in no acute distress he has come what of the circumduction gait pattern favoring the right lower extremity. He has a well-healed incision over the anterior aspect of the right knee. He has full active extension of the right knee. Quadriceps/S5 there is no sign of extensor lag flexion is limited to 80-85?. The end point is soft and and can be stretched to nearly 90 with the assistance. Imaging studies: Radiographs demonstrated early degenerative joint disease of the right hip. He also has moderate degree of joint disease in the right and left knees. Impression: The patient has a right knee contracture following quadriceps tendon injury and repair. The patient was counseled on treatment options up. I in the he may ultimately require quadricepsplasty with manipulation up. This would only be done after a aggressive period of physical therapy. PT was strongly recommended. Prolonged sustained stretching of the quadriceps was advised as opposed to the muscle strengthening program up. He was also counseled that his weight is a significant the healthy tissue in that absent a focus on the major weight reduction his overall health would be substantially compromised. Follow-up would be in 2?3 months at which time a reevaluation will be performed. Normal [facility] CNOVon 06-08-2019 CNOV Office Visit (ORTHMN ) CHEVY RAPP ([id number]) 1965 M Date Time Provider Department 06/08/19 1:30 PM BANDAR BUSH During your visit today, we recorded the following information about you: Weight Height 181.4 kg 1.905 m Bandar Bush MD 06/11/2019 8:40 AM Signed The patient was accompanied to the office by his spouse. 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 He sustained a quadriceps rupture which was subsequently repaired. He had a uneventful postoperative. The albeit the one in which she never regained the sufficient flexion in the right knee to permit easy access in and out of vehicles or getting up from a seated position. Loss of motion has been in position and he also notes discomfort in the anterior aspect of the right knee with any attempted knee flexion up. The in further questioning the patient disclosed 65 min were required to facilitate his rescue from the roof. His weight has been 400 pounds for several years. Physical examination the patient is a massive Boykin chested gentleman in no acute distress he has come what of the circumduction gait pattern favoring the right lower extremity. He has a well-healed incision over the anterior aspect of the right knee. He has full active extension of the right knee. Quadriceps/S5 there is no sign of extensor lag flexion is limited to 80-85?. The end point is soft and and can be stretched to nearly 90 with the assistance. Imaging studies: Radiographs demonstrated early degenerative joint disease of the right hip. He also has moderate degree of joint disease in the right and left knees. Impression: The patient has a right knee contracture following quadriceps tendon injury and repair. The patient was counseled on treatment options up. I in the he may ultimately require quadricepsplasty with manipulation up. This would only be done after a aggressive period of physical therapy. PT was strongly recommended. Prolonged sustained stretching of the quadriceps was advised as opposed to the muscle strengthening program up. He was also counseled that his weight is a significant the healthy tissue in that absent a focus on the major weight reduction his overall health would be substantially compromised. Follow-up would be in 2?3 months at which time a reevaluation will be performed. Referring Provider: SELF [[id number]] Allergies As of Date: 06/08/2019 Noted Allergy Reaction PENICILLINS 09/25/2013 2 - Rash Date Reviewed: 06/08/2019 Reviewed by: Marina Boyle - Fully Assessed Reason for Visit: Right leg pain [Other] Cmt: quadricep/ knee tendon repair Primary Visit Diagnosis:Rupture of right quadriceps muscle, subsequent encounter [U87.611U] Other Visit Diagnosis:Obesity, Class III, BMI 40-49.9 (morbid obesity) ([facility]) [E66.01] Prescriptions as of 06/08/2019 Sig: ASCORBIC ACID (VITAMIN C) 1,0* Take 1,000 mg by mouth once d* AMLODIPINE 10 MG TABLET Take 10 mg by mouth once margarita* ASPIRIN 81 MG TABLET,DELAYED * Take 81 mg by mouth once margarita* MAGNESIUM OXIDE 400 MG (241.3* Take 250 mg by mouth once meche* CHOLECALCIFEROL (VITAMIN D3) * Take 2,000 Units by mouth onc* Problem List As Of Date 06/08/2019 Noted Resolved Obesity, Class III, BMI >= 40 [E66.01] INVALID FOR* Encounter Status:Closed by BANDAR BUSH on 06/11/[address] [facility] PROGRESSon 06-08-2019 PROGRESS HNO ID: [id number] Author: Billy (Rt) Valentino Joseph Service: Radiology Author Type: Manager Sustainability Type: Progress Notes Filed: 06/08/2019 1:21 PM Note Text: Radiology Service Progress Note PATIENT NAME: Chevy Rapp DATE OF SERVICE: June 08, 2019 TIME: 1:21 PM PATIENT IDENTITY VERIFICATION COMPLETED USING TWO (2) METHODS: Name and Date of confirmed by patient verbally. PATIENT GENDER DATA: Male PATIENT RELEVANT IMPLANT DATA REVIEWED: Yes RADIOLOGY DEPARTMENT: General X-ray: Exam(s) Completed: Lower Extremity X-Ray(s): Femur, Left and Knee, AP / Lat / Tunne / Merchant Left and Wt. Bearing: PERIPHERAL IV DATA: Not applicable SIGNED BY: RT Mike June 08, 2019 1:[address] [facility] XR FEMUR 2V AP/LAT RTon 05-22 XR FEMUR 2V AP/LAT RT * * *Final Report* * * DATE OF EXAM: Jun 08 2019 1:15PM AOX 5333 - XR FEMUR 2V AP/LAT RT / PROCEDURE REASON: Pain * * * * Physician Interpretation * * * * HISTORY: Pain . Right leg pain with reduced range of motion. Torn muscle (accession [id number]), Diffuse right knee pain (accession [id number]) TECHNIQUE: XR FEMUR 2V AP/LAT RT, XR KNEE 4V AP/PA BOTH+LAT/MATHEW RT Laterality: RIGHT Number of different views (projections): 2 (accession [id number]), 4 (accession [id number]) COMPARISON: None RESULT: Right femur: Normal right femur radiographs without evidence of fracture or bony lesion. Mild to moderate degenerative arthritis of the right hip with small osteophytes and joint space narrowing. Right knee: Minimal degenerative arthritis in the right hip with minimal medial compartment narrowing and small marginal osteophytes. Prominent patellar enthesophytes. Degenerative arthritis also noted in the left knee. No other significant abnormality. - IMPRESSION: NO ACUTE OSSEOUS ABNORMALITY DEGENERATIVE CHANGES IN THE RIGHT HIP AND KNEE DESCRIBED Railroad Detective: RHONDA Transcribe Date/Time: Jun 08 2019 4:17P Dictated by : ABDULAZIZ MOTT MD This examination was interpreted and the report reviewed and electronically signed by: ABDULAZIZ MOTT MD on Jun 08 2019 4:19PM EST [id number] Normal [facility] XR KNEE 4V AP/PA BOTH+LAT/ME R RTon 06-08-2019 XR KNEE 4V AP/PA BOTH+LAT/MATHEW RT * * *Final Report* * * DATE OF EXAM: Jun 08 2019 1:15PM AOX 5203 - XR KNEE 4V AP/PA BOTH+LAT/MATHEW RT / PROCEDURE REASON: Pain * * * * Physician Interpretation * * * * HISTORY: Pain . Right leg pain with reduced range of motion. Torn muscle (accession [id number]), Diffuse right knee pain (accession [id number]) TECHNIQUE: XR FEMUR 2V AP/LAT RT, XR KNEE 4V AP/PA BOTH+LAT/MATHEW RT Laterality: RIGHT Number of different views (projections): 2 (accession [id number]), 4 (accession [id number]) COMPARISON: None RESULT: Right femur: Normal right femur radiographs without evidence of fracture or bony lesion. Mild to moderate degenerative arthritis of the right hip with small osteophytes and joint space narrowing. Right knee: Minimal degenerative arthritis in the right hip with minimal medial compartment narrowing and small marginal osteophytes. Prominent patellar enthesophytes. Degenerative arthritis also noted in the left knee. No other significant abnormality. - IMPRESSION: NO ACUTE OSSEOUS ABNORMALITY DEGENERATIVE CHANGES IN THE RIGHT HIP AND KNEE DESCRIBED Railroad Detective: RHONDA Transcribe Date/Time: Jun 08 2019 4:17P Dictated by : ABDULAZIZ MOTT MD This examination was interpreted and the report reviewed and electronically signed by: ABDULAZIZ MOTT MD on Jun 08 2019 4:19PM EST [id number] Normal [facility] Vital Signs Date Time Vital Sign Value Performing Clinician Facility 06-27-2023 13:33-0500 Blood Pressure Location Mikel GRANG[facility] 06-27-2023 13:33-0500 Diastolic blood pressure 81 mm[Hg] Mikel GRANGER [facility] 06-27-2023 13:33-0500 Heart rate 88 /min Mikel GRANG[facility] 06-27-2023 13:33-0500 Respiratory rate 16 /min Mikel GRANGER [facility] 06-27-2023 13:33-0500 Systolic blood pressure 131 mm[Hg] Mikelletty GRANGER [facility] 06-07-2023 08:10-0400 Body height 193.04 cm Cheri Pringle Other [facility] Other 06-07-2023 08:10-0400 Body mass index (BMI) [Ratio] 48.44 kg/m2 Cheri Pringle Other [facility] Other 06-07-2023 08:10-0400 Body temperature 98.8 [degF] Cheri Pringle Other [facility] Other 06-07-2023 08:10-0400 Body weight 180.53 kg Cheri Pringle Other [facility] Other 06-07-2023 08:10-0400 Diastolic blood pressure 78 mm[Hg] Cheri Pringle Other [facility] Other 06-07-2023 08:10-0400 Respiratory rate 20 /min Cheri Pringle Other [facility] Other 06-07-2023 08:10-0400 SaO2% (BldA) [Mass fraction] 97 % Cheri Pringle Other [facility] Other 06-07-2023 08:10-0400 Systolic blood pressure 136 mm[Hg] Cheri Pringle Other [facility] Other 03-07-2023 14:37-0400 Blood Pressure Location Mikel GRANGER [facility] 03-07-2023 14:37-0400 Diastolic blood pressure 83 mm[Hg] Mikel GRANGER [facility] 03-07-2023 14:37-0400 Heart rate 88 /min Mikel GRANGER [facility] 03-07-2023 14:37-0400 Respiratory rate 16 /min Mikel GRANGER [facility] 03-07-2023 14:37-0400 Systolic blood pressure 136 mm[Hg] Mikel GRANGER [facility] 02-03-2023 18:23-0400 Body height 193.04 cm Cheri Pringle Work Phone: [facility] 250 DO Work Phone: 02-03-2023 18:23-0400 Body mass index (BMI) [Ratio] 49.3 kg/m2 Cheri Pringle Work Phone: [facility] 250 DO Work Phone: 02-03-2023 18:23-0400 Body surface area Derived from formula 2.99 m2 Cheri Pringle Work Phone: [facility] 250 DO Work Phone: 02-03-2023 18:23-0400 Body weight 183.71 kg Cheri Pringle Work Phone: [facility] 250 DO Work Phone: 02-03-2023 18:23-0400 Diastolic blood pressure 80 mm[Hg] Cheri Pringle Work Phone: [facility] 250 DO Work Phone: 02-03-2023 18:23-0400 Heart rate 64 /min Cheri Pringle Work Phone: [facility] 250 DO Work Phone: 02-03-2023 18:23-0400 Systolic blood pressure 130 mm[Hg] Cheri Pringle Work Phone: [facility] 250 DO Work Phone: 02-03-2023 15:07-0400 Body height 193.04 cm Cheri Pringle Work Phone: [facility] 250 DO Work Phone: 02-03-2023 15:07-0400 Body mass index (BMI) [Ratio] 49.3 kg/m2 Cheri Pringle Work Phone: [facility] 250 DO Work Phone: 02-03-2023 15:07-0400 Body surface area Derived from formula 2.99 m2 Cheri Pringle Work Phone: [facility] 250 DO Work Phone: 02-03-2023 15:07-0400 Body weight 183.71 kg Cheri Pringle Work Phone: [facility] 250 DO Work Phone: 02-03-2023 15:07-0400 Diastolic blood pressure 88 mm[Hg] Cheri Pringle Work Phone: [facility] 250 DO Work Phone: 02-03-2023 15:07-0400 Heart rate 67 /min Cheri Pringle Work Phone: [facility] 250 DO Work Phone: 02-03-2023 15:07-0400 Systolic blood pressure 158 mm[Hg] Cheri Pringle Work Phone: [facility] 250 DO Work Phone: 07-02-2022 15:16-0500 Diastolic blood pressure 70 mm[Hg] Cheri Pringle Work Phone: [facility] 250 DO Work Phone: 07-02-2022 15:16-0500 Systolic blood pressure 138 mm[Hg] Cheri Pringle Work Phone: [facility] 250 DO Work Phone: 07-02-2022 14:57-0500 Body height 193.04 cm Cheri Pringle Work Phone: [facility] 250 DO Work Phone: 07-02-2022 14:57-0500 Body mass index (BMI) [Ratio] 48.81 kg/m2 Cheri Pringle Work Phone: [facility] 250 DO Work Phone: 07-02-2022 14:57-0500 Body surface area Derived from formula 2.98 m2 Cheri Pringle Work Phone: [facility] 250 DO Work Phone: 07-02-2022 14:57-0500 Body weight 181.89 kg Cheri Pringle Work Phone: [facility] 250 DO Work Phone: 07-02-2022 14:57-0500 Diastolic blood pressure 66 mm[Hg] Cheri Pringle Work Phone: [facility] 250 DO Work Phone: 07-02-2022 14:57-0500 Heart rate 72 /min Cheri Pringle Work Phone: [facility] 250 DO Work Phone: 07-02-2022 14:57-0500 Systolic blood pressure 142 mm[Hg] Cheri Pringle Work Phone: [facility] 250 DO Work Phone: 06-01-2022 09:10-0400 Body height 193.04 cm Cheri Pringle Other [employer] Other 06-01-2022 09:10-0400 Body mass index (BMI) [Ratio] 49.84 kg/m2 Cheri Pringle Other [employer] Other 06-01-2022 09:10-0400 Body temperature 96.9 [degF] Cheri Pringle Other [employer] Other 06-01-2022 09:10-0400 Body weight 185.75 kg Cheri Pringle Other [employer] Other 06-01-2022 09:10-0400 Diastolic blood pressure 78 mm[Hg] Cheri Pringle Other [facility] [employer] Other 06-01-2022 09:10-0400 Respiratory rate 20 /min Cheri Pringle Other [employer] Other 06-01-2022 09:10-0400 SaO2% (BldA) [Mass fraction] 97 % Cheri Pringle Other [employer] Other 06-01-2022 09:10-0400 Systolic blood pressure 152 mm[Hg] Cheri Pringle Other [facility] [employer] Other 12-09-2021 13:33-0400 Body height 193.04 cm Cheri Pringle [facility] 250 DO Work Phone: 12-09-2021 13:33-0400 Body mass index (BMI) [Ratio] 48.2 kg/m2 Cheri Pringle [facility] 250 DO Work Phone: 12-09-2021 13:33-0400 Body surface area Derived from formula 2.96 m2 Cheri Pringle [facility] 250 DO Work Phone: 12-09-2021 13:33-0400 Body weight 179.63 kg Cheri Pringle [facility] 250 DO Work Phone: 12-09-2021 13:33-0400 Diastolic blood pressure 86 mm[Hg] Cheri Pringle [facility] 250 DO Work Phone: 12-09-2021 13:33-0400 Heart rate 56 /min hCeri Pringle [facility] 250 DO Work Phone: 12-09-2021 13:33-0400 Systolic blood pressure 132 mm[Hg] Cheri Pringle [facility] 250 DO Work Phone: 11-18-2021 00:00-0400 6.1 1 Cheri Anglin Yary [facility] 250 DO Work Phone: Comment on above: [id number] 11-18-2021 00:00-0400 87 1 Cheri Anglin Yary [facility] 250 DO Work Phone: Comment on above: [id number] 10-02-2021 12:41-0500 Body height 193.04 cm Cheri Anglin [employer] [facility] 250 DO Work Phone: 10-02-2021 12:41-0500 Body mass index (BMI) [Ratio] 48.45 kg/m2 Cheri Pringle [facility] 250 DO Work Phone: 10-02-2021 12:41-0500 Body surface area Derived from formula 2.97 m2 Cheri Pringle [facility] 250 DO Work Phone: 10-02-2021 12:41-0500 Body weight 180.53 kg Cheri Pringle -[facility] 250 DO Work Phone: 10-02-2021 12:41-0500 Diastolic blood pressure 80 mm[Hg] Cheri Pringle [facility] 250 DO Work Phone: 10-02-2021 12:41-0500 Heart rate 48 /min Cheri Pringle [facility] 250 DO Work Phone: 10-02-2021 12:41-0500 Systolic blood pressure 150 mm[Hg] Cheri Pringle [facility] 250 DO Work Phone: 09-21-2021 15:17-0500 Body height 193.04 cm Cheri Pringle [facility] 250 DO Work Phone: 09-21-2021 15:17-0500 Body mass index (BMI) [Ratio] 48.2 kg/m2 Cheri Pringle [facility] 250 DO Work Phone: 09-21-2021 15:17-0500 Body surface area Derived from formula 2.96 m2 Cheri Anglin [employer] [facility] 250 DO Work Phone: 09-21-2021 15:17-0500 Body weight 179.63 kg Cheri Anglin [employer] [facility] 250 DO Work Phone: 09-21-2021 15:17-0500 Diastolic blood pressure 94 mm[Hg] Cheri Anglin [employer] [facility] 250 DO Work Phone: 09-21-2021 15:17-0500 Heart rate 87 /min Cheri Pringle [facility] 250 DO Work Phone: 09-21-2021 15:17-0500 Systolic blood pressure 146 mm[Hg] Cheri Anglin Yary [facility] 250 DO Work Phone: 09-07-2021 12:05-0500 Body height 193.04 cm Cheri Anglin Yray [facility] 250 DO Work Phone: 09-07-2021 12:05-0500 Body mass index (BMI) [Ratio] 49.18 kg/m2 Cheri Pringle [facility] 250 DO Work Phone: 09-07-2021 12:05-0500 Body surface area Derived from formula 2.99 m2 Cheri Pringle [facility] 250 DO Work Phone: 09-07-2021 12:05-0500 Body weight 183.25 kg Cheri Pringle [facility] 250 DO Work Phone: 09-07-2021 12:05-0500 Diastolic blood pressure 92 mm[Hg] Cheri Pringle [facility] 250 DO Work Phone: 09-07-2021 12:05-0500 Heart rate 46 /min Cheri Lloydpark [facility] 250 DO Work Phone: 09-07-2021 12:05-0500 Systolic blood pressure 158 mm[Hg] Cheri Anglin Yary [facility] 250 DO Work Phone: 08-10-2021 14:44-0500 Body height 185.42 cm Cheri Pringle [facility] 250 DO Work Phone: 08-10-2021 14:44-0500 Body mass index (BMI) [Ratio] 51.72 kg/m2 Cheri Pringle [facility] 250 DO Work Phone: 08-10-2021 14:44-0500 Body surface area Derived from formula 2.86 m2 Cheri Pringle [facility] 250 DO Work Phone: 08-10-2021 14:44-0500 Body weight 177.81 kg Cheri Anglin Yary [facility] 250 DO Work Phone: 08-10-2021 14:44-0500 Diastolic blood pressure 66 mm[Hg] Cheri Anglin [employer] [facility] 250 DO Work Phone: 08-10-2021 14:44-0500 Heart rate 91 /min Cheri Lloydpark [facility] 250 DO Work Phone: 08-10-2021 14:44-0500 Systolic blood pressure 138 mm[Hg] Cheri Pringle [facility] 250 DO Work Phone: 08-08-2021 08:49-0500 60 1 Cheri Pringle [facility] Work Phone: Comment on above: [id number] 05-26-2021 09:10-0400 Body height 193.04 cm Cheri Pringle Other [employer] Other 05-26-2021 09:10-0400 Body mass index (BMI) [Ratio] 47.28 kg/m2 Cheri Pringle Other [employer] Other 05-26-2021 09:10-0400 Body temperature 97.7 [degF] Cheri Pringle Other [employer] Other 05-26-2021 09:10-0400 Body weight 176.22 kg Cheri Pringle Other [employer] Other 05-26-2021 09:10-0400 Diastolic blood pressure 82 mm[Hg] Cheri Pringle Other [employer] Other 05-26-2021 09:10-0400 Respiratory rate 20 /min Cheri Pringle Other [employer] Other 05-26-2021 09:10-0400 SaO2% (BldA) [Mass fraction] 98 % Cheri Pringle Other [employer] Other 05-26-2021 09:10-0400 Systolic blood pressure 164 mm[Hg] Cheri Pringle Other [employer] Other Encounters Encounter Date Encounter Type Care Provider Facility Start: 10-31-2023 ambulatory Mikel Stafford ty:[facility] Start: 08-01-2023 Telephone encounter Cheri Pringle [facility] Start: 08-01-2023 End: 08-01-2023 ambulatory Cheri Pringle Facility:[facility] Start: 08-01-2023 End: 08-01-2023 ambulatory DO Cheri Pringle Work Phone: [facility] Work Phone: Start: 08-01-2023 End: 08-01-2023 Patient encounter procedure DO Cheri Pringle Work Phone: [facility] [place] Work Phone: Start: 07-27-2023 End: 07-27-2023 ambulatory ANDRE CARLOS Not Available Start: 07-18-2023 End: 07-18-2023 ambulatory Cheri Pringle Other [employer] Other Start: 07-18-2023 Telephone encounter [facility] Start: 07-11-2023 End: 07-11-2023 Subsequent hospital visit by physician Fallon Mena 2 [facility] Comment on above: Hyperlipidemia, unsp ecified; Unspecified atrial fibrillation (CMS/HCC) Start: 06-27-2023 End: 06-28-2023 ambulatory Mikel GRANGER Facility:[facility] Start: 06-27-2023 End: 06-27-2023 Patient encounter procedure Mikel GRANGER [facility] Start: 06-09-2023 End: 06-09-2023 ambulatory Cheri Pringle Other [employer] Other Start: 06-09-2023 Telephone encounter Cheri Pringle [facility] Start: 06-07-2023 End: 06-07-2023 ambulatory Cheri Pringle Other [employer] Other Start: 06-07-2023 Encounter for genera l adult medical examination without abnormal findings Cheri Pringle [facility] Family [facility] Start: 06-07-2023 Office outpatient vi sit 25 minutes Cheri Pringle [facility] Start: 03-07-2023 End: 03-08-2023 ambulatory Mikel GRANGER Facility:[facility] Start: 03-07-2023 End: 03-07-2023 Patient encounter procedure Mikel GRANGER [facility] Start: 02-03-2023 Office outpatient vi sit 25 minutes Cheri Pringle Work Phone: [facility] 250 DO Work Phone: Start: 01-27-2023 Rx Renewal Cheri Pringle Work Phone: [facility] 250 DO Work Phone: Start: 01-10-2023 End: 01-11-2023 ambulatory Mikel GRANGER Facility:[facility] Start: 12-13-2022 End: 12-13-2022 Departed Referred PHYSICIAN NO [facility] [place] Work Phone: Start: 12-13-2022 End: 12-13-2022 ambulatory PHYSICIAN NO [facility] Work Phone: Start: 12-13-2022 Nursing evaluation o f patient and report Cheri Pringle [facility] Start: 12-09-2022 ambulatory Mikel GRANGER Facility :[facility] Start: 12-06-2022 End: 12-06-2022 ambulatory Cheri Pringle Other [facility] [employer] Other Start: 12-06-2022 Telephone encounter Cheri Pringle [facility] Start: 11-29-2022 End: 11-29-2022 ambulatory Cheri Pringle Facility:[facility] Start: 11-29-2022 End: 11-29-2022 Departed Referred DO Cheri Pringle Work Phone: [facility] [place] Work Phone: Start: 11-29-2022 End: 11-29-2022 ambulatory DO Cheri Pringle Work Phone: [facility] Work Phone: Start: 11-29-2022 Telephone encounter Cheri Pringle [facility] Start: 07-02-[address] Maged Morrell II Facility: Start: 07-02-2022 Office outpatient vi sit 25 minutes Cheri Pringle Work Phone: [facility] 250 DO Work Phone: Start: 06-15-2022 End: 06-15-2022 ambulatory DO Cheri Pringle Work Phone: [facility] Work Phone: Start: 06-15-2022 End: 06-15-2022 Departed Referred DO Cheri Lloydpark Work Phone: [facility]-Lab [facility] Start: 06-04-2022 End: 06-04-2022 ambulatory Cheri Pringle Other [employer] Other Start: 06-04-2022 Telephone encounter Cheri Pringle [facility] Start: 06-01-2022 Encounter for genera l adult medical examination without abnormal findings Cheri Pringle [facility] Start: 06-01-2022 Office outpatient vi sit 25 minutes Cheri Pringle [facility] Start: 06-01-2022 Telephone encounter Cheri Pringle [facility] Start: 06-01-2022 End: 06-01-2022 ambulatory DO Cheri Pringle Work Phone: [facility] [employer] Other Start: 06-01-2022 End: 06-01-2022 Departed Referred DO Cheri Pringle Work Phone: [facility]-Lab [facility] Start: 01-27-2022 Rx Renewal Cheri Pringle Work Phone: [facility] 250 DO Work Phone: Start: 12-09-2021 Office outpatient vi sit 15 minutes Cheri Pringle [facility] 250 DO Work Phone: Start: 10-02-2021 Office outpatient vi sit 25 minutes Cheri Pringle [facility] 250 DO Work Phone: Start: 10-02-2021 Patient encounter procedure Chrei Pringle [facility] 250 DO Work Phone: Start: 09-21-2021 Office outpatient vi sit 25 minutes Cheri Pringle [facility] 250 DO Work Phone: Start: 09-07-2021 Patient encounter procedure Cheri Pringle -[facility] 250 DO Work Phone: Start: 08-13-2021 End: 08-13-2021 ambulatory Cheri Pringle Other [employer] Other Start: 08-13-2021 Telephone encounter Cheri Pringle [facility] Start: 08-11-2021 End: 08-11-2021 ambulatory Cheri Pringle Other [employer] [facility] [employer] Other Start: 08-11-2021 Telephone encounter Cheri Pringle [facility] Start: 08-10-2021 Patient encounter procedure Cheri Pringle [facility]-[place] 250 DO Work Phone: Start: 05-26-2021 Encounter for genera l adult medical examination without abnormal findings Cheri Pringle [facility] Start: 05-26-2021 Office outpatient vi sit 15 minutes Cheri Pringle [facility] Start: 04-30-[address] CHERI PRINGLE Facilit y:[facility] Start: 08-05-2020 End: 08-05-[address] YVES VELASCO Facility:[facility] Procedures Date Procedure Procedure Detail Performing Clinician Start: 08-01-2023 CT of chest without contrast DO Cheri Pringle Work Phone: Start: 07-11-2023 Ct heart no contrast quant eval coronry calcium Cheri Pringle DO Work Phone: Start: 11-29-2022 Urine culture DO Cheri Pringle Work Phone: Start: 06-01-2022 Piperacillin/tazobactam Cheri Pringle Other Start: 08-22-2020 Colonoscopy Cheri Bowie rvin Colonoscopy Mikel GRANGER Decompression of med juan daniel nerve Cheri Pringle Extraction of wisdom tooth D avitabitha Pringle Leg repair Cheri Pringle Repair of quadriceps tendon Mikel GRANGER Urine culture DO Cheri angeles Work Phone: Urine culture DO Cheri angeles Work Phone: Plan of Treatment Date Care Activity Detail Author Start: 08-26-2023 FUV, Provider: Maged Morrell, Status: Pen, Time: 3:20 PM FUV, Provider: Maged Morrell, Status: Pen, Time: 3:20 PM -[facility] 250 DO Work Phone: Start: 08-26-2023 End: 08-26-2023 Patient encounter procedure 08/26/2023 3:20 PM EST Office Visit [facility] [address] [facility] [address] [place] [address] Maged Morrell MD [address] [facility] [address] [place] [address] [facility] Start: 04-22-2023 Influenza vaccination Influenza Vacc ine (#1) [facility] Start: 02-03-2023 FUV, Provider: Maged Morrell, Status: Pen, Time: 2:40 PM FUV, Provider: Maged Morrell, Status: Pen, Time: 2:40 PM -[facility] 250 DO Work Phone: Start: 01-19-2023 FUV, Provider: Maged Morrell, Status: Pen, Time: 3:20 PM FUV, Provider: Maged Morrell, Status: Pen, Time: 3:20 PM -[facility] 250 DO Work Phone: Start: 12-13-2022 Bacteria identified in Urine by Culture Urine Culture [facility] Start: 07-02-2022 FUV, Provider: Maged Morrell, Status: Pen, Time: 2:40 PM FUV, Provider: Maged Morrell, Status: Pen, Time: 2:40 PM -[facility] 250 DO Work Phone: Start: 06-01-2022 FUV, Provider: Maged Morrell, Status: Pen, Time: 9:00 AM FUV, Provider: Maged Morrell, Status: Pen, Time: 9:00 AM [facility] 250 DO Work Phone: Start: 10-30-2021 FUV, Provider: Maged Morrell, Status: Pen, Time: 1:50 PM FUV, Provider: Maged Morrell, Status: Pen, Time: 1:50 PM [facility] 250 DO Work Phone: Start: 10-09-2021 SURGNONUH, Provider: Maged Morrell, Status: Pen, Time: 8:00 AM SURGNONUH, Provider: Maged Morrell, Status: Pen, Time: 8:00 AM -[facility] 250 DO Work Phone: Start: 10-02-2021 FUV, Provider: Maged Morrell, Status: Pen, Time: 12:30 PM FUV, Provider: Maged Morrell, Status: Pen, Time: 12:30 PM [facility] 250 DO Work Phone: Start: 09-21-2021 FUV, Provider: Carmen Aguilar, Status: Pen, Time: 3:00 PM FUV, Provider: Carmen Aguilar, Status: Pen, Time: 3:00 PM -[facility] 250 DO Work Phone: Start: 09-02-2021 FUV, Provider: Carmen Aguilar, Status: Pen, Time: 8:00 AM FUV, Provider: Carmen Aguilar, Status: Pen, Time: 8:00 AM -[facility] 250 DO Work Phone: Start: 10-06-2020 DTaP/Tdap/Td Vaccine s (2 - Td or Tdap) DTaP/Tdap/Td Vaccines (2 - Td or Tdap) [facility] Start: 2013 Zoster Vaccines (1 of 2) Zoste r Vaccines (1 of 2) [facility] Start: 1981 Diabetes mellitus screening Diabetes Screening [facility] Start: 1981 Hepatitis C screening Hepatitis C Sc reening [facility] Start: 1964 MMR Vaccines (1 of 1 - Standard series) MMR Vaccines (1 of 1 - Standard series) [facility] Start: 1963 COVID-19 Vaccine (#1) COVID-19 Vacci ne (#1) [facility] Start: 1963 HIV screening HIV Screening [facility] Start: 1963 Lipid panel Lipid Panel [facility] Start: 1963 Screening for malign ant neoplasm of colon [facility] Start: 1965 Yearly Adult Physical Yearly Adult P hysical [facility] Bacteria identified in Urine by Culture [facility] Bacteria identified in Urine by Culture [facility] Payers Date Payer Category Payer Unknown 2022 Self-pay [id number] 2022 Unknown [id number] 1965 Unknown [id number] [id number] 1963 Unknown [id number] 2.16.84 [id number] 1963 Unknown [id number] 2.16. [id number] 1963 Unknown [id number] 2.16.8 [id number] 1963 Unknown [id number] 2.16.8 [id number] 1963 Unknown [id number] 2.16.8 [id number] 1963 Unknown [id number] 2.16.8 [id number] 1963 Unknown [id number] 1959 Unknown [id number] 1959 Unknown [id number] Unknown [id number] 2.16.8 [id number] Unknown [id number] 2.16.8 [id number] Unknown [id number] 2.16.8 [id number] Social History Date Type Detail Facility No alcohol use No alcohol use [facility] 250 DO Work Phone: Sex Assigned At [facility] Start: 10-28-2021 End: 10-28-2021 Tobacco smoking status NHIS Never smoked tobacco (finding) [facility] Start: 1965 Sex Assigned At Male F [facility] Tobacco smoking status [facility] Tobacco smoking consumption unknown [facility] Work Phone: Start: 1965 Sex Assigned At Not on file [facility] Work Phone: Start: 07-01-2023 End: 07-11-2023 Exposure to SARS-CoV-2 (event) Not sure [facility] Functional Status Date Assessment Result Facility 06-27-2023 Functional Status N/A [facility] 03-07-2023 Functional Status N/A [facility] Clinical Notes 05-26-2021 to 06-27-2023 Note Date & Type Note Facility 06-27-2023 Hospital Discharge instructions Patient Education 06/27/2023 14:38:23 Benign Prostatic Hyperplasia Benign Prostatic Hyperplasia Benign prostatic hyperplasia (BPH) is an enlarged prostate gland that is caused by the normal aging process. The prostate may get bigger as a man gets older. The condition is not caused by cancer. The prostate is a walnut-sized gland that is involved in the production of semen. It is located in front of the rectum and below the bladder. The bladder stores urine. The urethra carries stored urine out of the body. An enlarged prostate can press on the urethra. This can make it harder to pass urine. The buildup of urine in the bladder can cause infection. Back pressure and infection may progress to bladder damage and kidney (renal) failure. What are the causes? This condition is part of the normal aging process. However, not all men develop problems from this condition. If the prostate enlarges away from the urethra, urine flow will not be blocked. If it enlarges toward the urethra and compresses it, there will be problems passing urine. What increases the risk? This condition is more likely to develop in men older than 50 years. What are the signs or symptoms? Symptoms of this condition include: Getting up often during the night to urinate. Needing to urinate frequently during the day. Difficulty starting urine flow. Decrease in size and strength of your urine stream. Leaking (dribbling) after urinating. Inability to pass urine. This needs immediate treatment. Inability to completely empty your bladder. Pain when you pass urine. This is more common if there is also an infection. Urinary tract infection (UTI). How is this diagnosed? This condition is diagnosed based on your medical history, a physical exam, and your symptoms. Tests will also be done, such as: A post-void bladder scan. This measures any amount of urine that may remain in your bladder after you finish urinating. A digital rectal exam. In a rectal exam, your health care provider checks your prostate by putting a lubricated, gloved finger into your rectum to feel the back of your prostate gland. This exam detects the size of your gland and any abnormal lumps or growths. An exam of your urine (urinalysis). A prostate specific antigen (PSA) screening. This is a blood test used to screen for prostate cancer. An ultrasound. This test uses sound waves to electronically produce a picture of your prostate gland. Your health care provider may refer you to a specialist in kidney and prostate diseases (urologist). How is this treated? Once symptoms begin, your health care provider will monitor your condition (active surveillance or watchful waiting). Treatment for this condition will depend on the severity of your condition. Treatment may include: Observation and yearly exams. This may be the only treatment needed if your condition and symptoms are mild. Medicines to relieve your symptoms, including: ?Medicines to shrink the prostate. ?Medicines to relax the muscle of the prostate. Surgery in severe cases. Surgery may include: ?Prostatectomy. In this procedure, the prostate tissue is removed completely through an open incision or with a laparoscope or robotics. ?Transurethral resection of the prostate (TURP). In this procedure, a tool is inserted through the opening at the tip of the penis (urethra). It is used to cut away tissue of the inner core of the prostate. The pieces are removed through the same opening of the penis. This removes the blockage. ?Transurethral incision (TUIP). In this procedure, small cuts are made in the prostate. This lessens the prostate's pressure on the urethra. ?Transurethral microwave thermotherapy (TUMT). This procedure uses microwaves to create heat. The heat destroys and removes a small amount of prostate tissue. ?Transurethral needle ablation (TUNA). This procedure uses radio frequencies to destroy and remove a small amount of prostate tissue. ?Interstitial laser coagulation (ILC). This procedure uses a laser to destroy and remove a small amount of prostate tissue. ?Transurethral electrovaporization (TUVP). This procedure uses electrodes to destroy and remove a small amount of prostate tissue. ?Prostatic urethral lift. This procedure inserts an implant to push the lobes of the prostate away from the urethra. Follow these instructions at home: Take [id number] and prescription medicines only as told by your health care provider. Monitor your symptoms for any changes. Contact your health care provider with any changes. Avoid drinking large amounts of liquid before going to bed or out in public. Avoid or reduce how much caffeine or alcohol you drink. Give yourself time when you urinate. Keep all follow-up visits. This is important. Contact a health care provider if: You have unexplained back pain. Your symptoms do not get better with treatment. You develop side effects from the medicine you are taking. Your urine becomes very dark or has a bad smell. Your lower abdomen becomes distended and you have trouble passing urine. Get help right away if: You have a fever or chills. You suddenly cannot urinate. You feel light-headed or very dizzy, or you faint. There are large amounts of blood or clots in your urine. Your urinary problems become hard to manage. You develop moderate to severe low back or flank pain. The flank is the side of your body between the ribs and the hip. These symptoms may be an emergency. Get help right away. Call 911. Do not wait to see if the symptoms will go away. Do not drive yourself to the hospital. Summary Benign prostatic hyperplasia (BPH) is an enlarged prostate that is caused by the normal aging process. It is not caused by cancer. An enlarged prostate can press on the urethra. This can make it hard to pass urine. This condition is more likely to develop in men older than 50 years. Get help right away if you suddenly cannot urinate. This information is not intended to replace advice given to you by your health care provider. Make sure you discuss any questions you have with your health care provider. Document Revised: 02/24/2022 Document Reviewed: 02/24/2022 Button Patient Education 2022 [email or web address]. Follow Up Care 03/07/2023 15:14:27 With:SCOTT VINSON, Mikel Wagner, URL Address: [facility] [address], [place] [address]- When:Within 4 Month(s) [facility] [place] 06-07-2023 Evaluation note Encounter Date Diagnosis Assessment Notes May, Hyperlipidemia (ICD-10 - E78.5) Discussed cholesterol results with patient today. Total is 162. HDL is 34. LDL is 102. Triglycerides are 128. VLDL is 26. He is to continue with the lifestyle and dietary changes that he has made. Will continue to monitor. I am going to provide him with an order to have a Coronary Calcium Score done again, an order was provided. May, Hyperglycemia (ICD-10 - R73.9) He voices that he got sick in April (2022) but is not sure with what, possibly COVID-19 and his blood sugars were off . He also collected his honey in April and was sampling . He has tried to cut back on his intake of sugars to include what is in his cranberry tablets and Metamucil. He is also trying to limit his intake of carbs in his diet. He has lost six pounds since last seen. His glucose is 138. HgA1C is 6.2. I did recommend that he continue with the lifestyle and dietary changes that he is making. Stay active as tolerated. May, Hypothyroidism (ICD-10 - E03.9) His TSH is 3.250. Will continue to monitor. May, Back pain (ICD-10 - M54.9) He has trouble with his back but only when he stands. When he stands for long periods of time it aches on both sides, it does not hurt on the spine, it hurts along the sides. He has difficulty standing completely straight. Denies pain down either leg. After standing for a long time he will want to lean over, once he sits down he has instant relief. I did recommend that we order lumbar spine x-rays and if this comes back okay then I would like him to attend PT. He is not to start PT until he hears what the XR results are. May, Dysphagia (ICD-10 - R13.10) He voices that his throat is dry and his voice is raspy, sometimes he has trouble swallowing pills. He believes this has been going on since he had COVID-19. I did advise him that I cannot see the vocal cord area, I would like him to see an ENT who can evaluate this area further. He is in agreement and would like a referral. May, Vitamin D deficiency (ICD-10 - E55.9) His Vitamin D level is 44. Continue with Vitamin D as directed. May, Elevated blood pressure (ICD-10 - R03.0) Again, he did return to taking above medication, I did recommend that he let Dr. Morrell know that he is taking this again. I did provide him with a refill on this medication. May, Cystitis (ICD-10 - N30.90) He did see Dr. Granger in December (2022) for evaluation, he felt he had an infection of his prostate. He did return to see him two months later and he did change his medication due to the hot flashes he was getting with the medicine he put him on so he put him on something else but told him it would take six months to work and gave him Cialis but this also caused hot flashes so he stopped this as well. May, Atrial fibrillation (ICD-10 - I48.91) He last saw Dr. Morrell 3-4 months ago. I will try to obtain a copy of his last OV note. He voices that Dr. Morrell was happy with his heart and he saw him after he saw Dr. Granger and told him about the medications that Dr. Granger put him on. He was taken off the Olmesartan but since he stopped the medicine that Dr. Granger put him on he did restart the Olmesartan. I did recommend that he let Dr. Farfan office know that he has restarted this. May, Other detention (current) drug therapy (ICD-10 - Z79.899) May, Weight loss (ICD-10 - R63.4) He has lost six pounds since last seen. He has done this by trying to watch his intake of carbs and sugars. He is to continue with what he is doing. May, Elevated PSA (ICD-10 - R97.20) He is currently taking Dutasteride 0.[address] Granger. He voices that when his last PSA level was checked it was down. He will return to see him soon. I will try and obtain his last office visit note. May, Wellness examination (ICD-10 - Z00.00) *for lab order only [facility] Other 07-17-2023 Hospital Discharge instructions Patient Education 03/07/2023 15:12:16 Benign Prostatic Hyperplasia Benign Prostatic Hyperplasia Benign prostatic hyperplasia (BPH) is an enlarged prostate gland that is caused by the normal agingprocess. The prostate may get bigger as a man gets older. The condition is not caused by cancer. The prostate is a walnut-sized gland that is involved in the production of semen. It is located in front of the rectum and below the bladder. The bladder stores urine. The urethra carries stored urine ou t of the body. An enlarged prostate can press on the urethra. This can make it harder to pass urine. The buildup of urine in the bladder can cause infection. Back pressure and infection may progress to bladder damage and kidney (renal) failure. What are the causes? This condition is part of the normal aging process. However, not all men develop problems from thiscondition. If the prostate enlarges away from the urethra, urine flow will not be blocked. If it enlarges toward the urethra and compresses it, there will be problems passing urine. What increases the risk? This condition is more likely to develop in men older than 50 years. What are the signs or symptoms? Symptoms of this condition include: Getting up often during the night to urinate. Needing to urinate frequently during the day. Difficulty starting urine flow. Decrease in size and strength of your urine stream. Leaking (dribbling) after urinating. Inability to pass urine. This needs immediate treatment. Inability to completely empty your bladder. Pain when you pass urine. This is more common if there is also an infection. Urinary tract infection (UTI). How is this diagnosed? This condition is diagnosed based on your medical history, a physical exam, and your symptoms. Tests will also be done, such as: A post-void bladder scan. This measures any amount of urine that may remain in your bladder after you finish urinating. A digital rectal exam. In a rectal exam, your health care provider checks your prostate by putting a lubricated, gloved finger into your rectum to feel the back of your prostate gland. This exam detects the size of your gland and any abnormal lumps or growths. An exam of your urine (urinalysis). A prostate specific antigen (PSA) screening. This is a blood test used to screen for prostate cancer. An ultrasound. This test uses sound waves to electronically produce a picture of your prostate gland. Your health care provider may refer you to a specialist in kidney and prostate diseases (urologist). How is this treated? Once symptoms begin, your health care provider will monitor your condition (active surveillance or watchful waiting). Treatment for this condition will depend on the severity of your condition. Treatment may include: Observation and yearly exams. This may be the only treatment needed if your condition and symptoms are mild. Medicines to relieve your symptoms, including: ?Medicines to shrink the prostate. ?Medicines to relax the muscle of the prostate. Surgery in severe cases. Surgery may include: ?Prostatectomy. In this procedure, the prostate tissue is removed completely through an open incision or with a laparoscope or robotics. ?Transurethral resection of the prostate (TURP). In this procedure, a tool is inserted through the opening at the tip of the penis (urethra). It is used to cut away tissue of the inner core of the prostate. The pieces are removed through the same opening of the penis. This removes the blockage. ?Transurethral incision (TUIP). In this procedure, small cuts are made in the prostate. This lessens the prostate's pressure on the urethra. ?Transurethral microwave thermotherapy (TUMT). This procedure uses microwaves to create heat. The heat destroys and removes a small amount of prostate tissue. ?Transurethral needle ablation (TUNA). This procedure uses radio frequencies to destroy and remove a small amount of prostate tissue. ?Interstitial laser coagulation (ILC). This procedure uses a laser to destroy and remove a small amount of prostate tissue. ?Transurethral electrovaporization (TUVP). This procedure uses electrodes to destroy and remove a small amount of prostate tissue. ?Prostatic urethral lift. This procedure inserts an implant to push the lobes of the prostate away from the urethra. Follow these instructions at home: Take [id number] and prescription medicines only as told by your health care provider. Monitor your symptoms for any changes. Contact your health care provider with any changes. Avoid drinking large amounts of liquid before going to bed or out in public. Avoid or reduce how much caffeine or alcohol you drink. Give yourself time when you urinate. Keep all follow-up visits. This is important. Contact a health care provider if: You have unexplained back pain. Your symptoms do not get better with treatment. You develop side effects from the medicine you are taking. Your urine becomes very dark or has a bad smell. Your lower abdomen becomes distended and you have trouble passing urine. Get help right away if: You have a fever or chills. You suddenly cannot urinate. You feel light-headed or very dizzy, or you faint. There are large amounts of blood or clots in your urine. Your urinary problems become hard to manage. You develop moderate to severe low back or flank pain. The flank is the side of your body between the ribs and the hip. These symptoms may be an emergency. Get help right away. Call 911. Do not wait to see if the symptoms will go away. Do not drive yourself to the hospital. Summary Benign prostatic hyperplasia (BPH) is an enlarged prostate that is caused by the normal aging process. It is not caused by cancer. An enlarged prostate can press on the urethra. This can make it hard to pass urine. This condition is more likely to develop in men older than 50 years. Get help right away if you suddenly cannot urinate. This information is not intended to replace advice given to you by your health care provider. Make sure you discuss any questions you have with your health care provider. Document Revised: 02/24/2022 Document Reviewed: 02/24/2022 Button Patient Education 2022 [email or web address]. Follow Up Care 01/10/2023 14:44:46 With:SCOTT VINSON, Mikel Wagner, URL Address: [facility] [address] [place] [address] [phone] When: Unknown Comments:3 mos (new med) [facility] [place] 05-22-2023 NoteChief Complaint referral for possible cystitis HPI Staff Referral for possible cystitis. Pt states that he began having symptoms off and on about 8 months ago and he attributed them to aging. He was last treated for bladder infection last month when he hadsever urgency symptoms and bleeding. He was treated with Doxycycline 100mg BID for 10 days. This was the second infection he had in 6 months. Current PSA done 11/26/2022 is 1.46 and previous done 11/19/2022 was 0.45. Dysuria: no Incomplete bladder emptying: no Hematuria: no Frequency: every couple of hours Urgency: no Nocturia: 0-1x Stream: good steady no straining Leaking: no Post void dripping: no Wearing pads/ Depends: no Urge incontinence: no Stress incontinence: no Incontinence without Sensory Awareness: no Abdominal pain: no Flank pain: no Sexual complaints: no History of Present Illness Tests reviewed: reviewed UA, referral records. I have reviewed the previous health record information and history for this patient from Dr. Pringle. I have reviewed and verified the staff HPI to be accurate for this encounter. There have been no associated fever, chills, flank pain, or blood in the urine. Denies any urinary infections since last encounter. Review of Systems PHQ Score Initial Depression Screen Score: 0 ROS - Provider Constitutional: denies weight loss, denies hot flashes. Eyes: denies eye problems. Gastrointestinal: denies nausea, denies vomiting. Cardiovascular: denies chest pain or angina. Integumentary: no dryness Musculoskeletal: denies musculoskeletal symptoms. ENMT: denies otolaryngeal symptoms. Respiratory: no shortness of breath. Heme/Lymph: denies easy bleeding tendency, denies easy bruising tendency. Psychiatric: no confusion, no anxiety. Genitourinary: See HPI. Physical Exam Vitals & Measurements HR: 75(Peripheral) RR: 16 BP: 137/87 HT: 76 in HT: 193 cm WT: 177 kg WT: 389.4 lb BMI: 47.52 General Appearance: alert, no distress, well nourished, well developed male. Head: normocephalic . Eyes: normal orbit and globe. ENMT: normal examination of external ears. Chest: Lungs CTA, respirations non labored. Cardiovascular: regular rate and rhythm. Abdomen: soft, non distended, no tenderness, no mass or organomegaly, no hernia. Genitourinary: normal scrotum, normal testes, normal urethra, normal epididymis, normal vas deferens/spermatic cord. Flank Pain: none. Bladder: nonpalpable. Penis: normal shaft, normal glans. Prostate: Distant prostate, unable to examine. Lymph Nodes: unremarkable palpation of the cervical area. Skin: warm, dry, no bruising. Psychiatric: cooperative, affect appropriate for age, normal judgement, euthymic mood. Assessment/Plan Chevy is a 57 yo male new pt referred by Dr. Pringle due to cystitis. Pt here with his today. 1. Prostatitis (N41.9: Inflammatory disease of prostate, unspecified) UA dip & micro 06/01/22 - WBC 20-49, RBC 5-9. UCx 06/01/22 - >100,000 E. coli, mallory sensitive. UA dip & micro 06/15/22 - WBC 3-4, RBC 3-4. UCx 06/15/22 - Mixed skin containments. UA dip & micro 11/29/22 - WBC 10-19, RBC 3-4. UCx 11/29/22 - 30,000 E. coli, mallory sensitive. UA today shows trace leuks. Pt states he had a bladder infection last fall. Was tx'd with Doxycycline x 10 days through PCP. Sxs included frequency, worsening leakage, urgency, gross hematuria. Sxs resolved with abx minus frequency. Saw PCP in November and was diagnosed with another UTI. Tx'd again with Doxycycline 100 mg BID x 10 days, no longer leaking. Educated pt that it is uncommon for men to have UTIs and it is likely due to prostate obstruction or infrequent urination. Educated pt on timed voids. Also discussed starting med to help pt urinate and empty better. Pt still has residual infection, aware prostatitis requires long abx course. NEELAM today - distant prostate, unable to examine. Follow up 2 mos PSA or sooner if needed. Pt understands and agrees with plan. -Start Doxycycline 100 mg bid x 30 days. SEs discussed. Rx sent to [facility]. -Start timed voids at least q3hrs while awake. 2. BPH with urinary obstruction (N40.1: Benign prostatic hyperplasia with lower urinary tract symptoms) PSA: 11/19/22 - 0.45 11/26/22 - 1.46 See #1. IPSS 4. Feels he empties completely. -Start Alfuzosin 10 mg ER qd. SEs discussed. Rx sent to [facility]. -Repeat PSA after abx course. 3. Family history of prostate cancer in father (Z80.42: Family history of malignant neoplasm of prostate) 4. Family history of kidney cancer (Z80.51: Family history of malignant neoplasm of kidney) Follow-up With When Contact Information Mikel GRANGER MD, URL [facility] [address], [place] [address]- Additional Instructions: 2 mos with PSA Patient Education Prostatitis I, Melania Lazo, personally scribed for Dr. Granger on 01/10/2023 14:42:13. . Documentati (more content not included)...[facility] HealthcareComment on above:Result Comment: Electronically Signed By: Mikel GRANGER MD\.br\Date and Time Signed: 01/10/23 14:45 EDT\.br\Electronically Co-Signed By: Melania Lazo.br\Date and Time Co-Signed: 01/10/23 14:42 [id number] Evaluation note* Encounter Date Diagnosis Assessment Notes Treatment Notes Treatment Clinical Notes Nov, Cystitis (ICD-10 - N30.90) [facility] Other 04-10-2023 Evaluation note* Encounter Date Diagnosis Assessment Notes Treatment Notes Treatment Clinical Notes Nov, Cystitis (ICD-10 - N30.90) [facility] Other 10-11-2022 Evaluation note* Encounter Date Diagnosis Assessment Notes Treatment Notes Treatment Clinical Notes May, Hyperlipidemia (ICD-10 - E78.5) Discussed cholesterol results with patient today. Total is 164. HDL is 33. LDL is 102. Triglycerides are 147. VLDL is 29. Again, we discussed him making lifestyle and dietary changes to help improve his readings. Continue with above medications. May, Cystitis (ICD-10 - N30.90) He voices that yesterday he woke up and was very fatigued, when he got to work he had some loss of bladder control and by the end of the day he felt something pushing on his bladder. After that he noticed the blood in his urine. We discussed that his urine does have blood in it and it appears to be infected. Will send his urine out for further evaluation and he can call later this week for the results. It is rare for a man to get a urinary infection. If he gets another urine infection then he will need to see a urologist. I will treat him for this today with an antibiotic. Three to four days after he has finished the medication he needs to provide a repeat urine sample to be sure this has resolved. Guidance is given on how to take the antibiotic. If he has severe back pain, a fever or begins to vomit then he is to go to the ER for evaluation. He should use caution when in the sun due to sun sensitivity. Due to interaction Bactrim WAS NOT used for treatment, this was cancelled at the pharmacy, and he was given Doxycycline. He was given an off work note for 06-01 and 06-02-22 due to medical reasons. May, Vitamin D deficiency (ICD-10 - E55.9) His Vitamin D level is 45. Continue with above medication daily as directed. May, Hyperglycemia (ICD-10 - R73.9) His glucose level was 128. HgA1C is 6.3. He admits that his diet has been poor over the last few months, he likes pasta. I did recommend that he cut back on his intake of carbs and sugars and stay active as tolerated. I did recommend he start medication but he refuses and feels that he can work on dietary and lifestyle changes to help lower his readings on his own. Will repeat lab in six months. May, Hypothyroidism (ICD-10 - E03.9) His TSH is 3.460. Will continue to monitor. May, Other detention (current) drug therapy (ICD-10 - Z79.899) May, Atrial fibrillation (ICD-10 - I48.91) He follows with Dr. Morrell for evaluation. He voices that he was placed on a blood thinner at first but then was taken off. He voices that he sees Dr. Morrell yearly. May, Sleep apnea (ICD-10 - G47.30) He does continue to use and benefit from the c-pap machine. May, Wellness examination (ICD-10 - Z00.00) for lab order only May, Hematuria (ICD-10 - R31.9) He could see blood and passed a blood clot yesterday. May, Elevated blood pressure (ICD-10 - R03.0) Yesterday his systolic reading was 139 but he checked his blood pressure this morning prior to his appointment and it was 127/78 which is better than what we got in the office today. He is to continue to monitor his blood pressure on his own and track readings. May, Weight gain (ICD-10 - R63.5) May, COVID-19 (ICD-10 - U07.1) He voices that he had COVID-19 in February (2021) and his voice has not been the same since, he feels like he is choking at times. He does not have trouble swallowing and does not feel that he has alot of drainage. He voices that he had alot of coughing when he was sick. We discussed that the virus affects the lining of the lungs and it can take time for everything to return to the way it was. He is to continue to monitor. [facility] Other 10-05-2021 Evaluation note* Encounter Date Diagnosis Assessment Notes Treatment Notes Treatment Clinical Notes May, Elevated blood pressure (ICD-10 - I10) His blood pressure runs 120-130's systolic at home on his wrist cuff. I suspect his reading in the office today is elevated because he is here in the office. For now he is comfortable continuing with the current dose of Amlodipine and if his home readings increase he will let me know. On exam today he has stasis dermatitis so we discussed changing the Amlodipine to a different medication but blood monitoring would have to be done but he declines and would like to continue with the Amlodipine. May, Vitamin D deficiency (ICD-10 - E55.9) His Vitamin D level is 47.4. He is to continue with above medication daily as directed. May, Hyperglycemia (ICD-10 - R73.9) Discussed blood sugar results with patient today. Glucose is 106. HgA1C is down from 6.4 to 6.0 which is a significant improvement. Again, he voices that he has been watching his intake of sugars. He is encouraged to continue with what he is doing as it is working well. Stay active. May, Hyperlipidemia (ICD-10 - E78.5) Discussed cholesterol results with patient today. Total is 150. HDL is 34. LDL is 102. Triglycerides are 72. I would like to see his LDL between 70-100, he is almost to goal. Encouraged him to watch his intake of carbs and sugars. He admits he has been cutting back on his intake of sugars. He should continue with this. Stay active. May, Sleep apnea (ICD-10 - G47.30) He voices that he does continue to use and benefit from the CPAP machine, it does allow him to sleep at night. May, Stasis dermatitis of both legs (ICD-10 - I87.2) Noted on bilateral legs, explained that this comes from venous insufficiency. The skin changes because of venous changes. We discussed changing his Amlodipine to a different medication but he does not want to change. If he has been sitting and goes to stand he has to stand for a few seconds before he can move. I did recommend that he elevate his legs above his heart as often as he can and if he has to sit for long periods of time try to get up and walk even for a short time every 15 min. May, Weight gain (ICD-10 - R63.5) We discussed his thyroid blood results. TSH is 3.14. Free T3 is 3.08. Free T4 is 0.90. Readings are normal. At this point we will just check his TSH going forward. May, Elevated PSA (ICD-10 - R97.20) Discussed his PSA results today. Total PSA is 0.70. Free PSA is 0.18. % Free PSA is 25.7. May, Cough (ICD-10 - R05) He was tested for COVID-19 in early Apr (2020) and tested negative both times but had symptoms of COVID-19 for two weeks. He had many symptoms but most resolved except a cough. He had a headache, discomfort in his head and lost his sense of taste and smell, he had to void often. He voices that it took him about two weeks to recover. He has had a continued cough since the illness. I did recommend that he get lab drawn to check for COVID-19 antibodies. He declines. He voices that he has phlegm in the back of his throat and is told that there is not alot that can be done for this and I suspect this will slowly improve. He voices that his chest does get tight at times. I did recommend an inhaler, he declines, but if he changes his mind then he is to let me know and we will call one in for him. Anticipate he will slowly improve. May, Wellness examination (ICD-10 - Z00.00) for lab order only [facility] Other evaluation + Plan note Future Appointments Appointment Date:06/13/2023 03:00:00 PM Scheduled Provider:Mikel GRANGER MD Location:[facility] Appointment Type:URO Office Visit [facility] evaluation + Plan note Future Appointments Appointment Date:10/31/2023 02:45:00 PM Scheduled Provider:Mikel GRANGER MD Location:[facility] Appointment Type:URO Office Visit [facility] evaluation noteNo InformationNort [facility] Other evaluation noteNo assessment information available [facility] Work Phone: evaluation note* Diagnosis Hyperlipidemia, unspecified Unspecified atrial fibrillation (CMS/HCC) documented in this encounter [facility] Work Phone: Hisxvhv general Narrative - Reported* Type Description Date Medical History THYROID Medical History FATIGUE Medical History high blood pressure Surgical History wisdom teeth 1997 Surgical History sleep clinic through [facility] - Dr Smith 2002 Surgical History Colonoscopy, Dr. Angelia veraan -polyp removed, needs to return at age 53 2-5-[address] Puentes 03/22/18 Surgical History Colonoscopy, Dr. Velasco repeat in 08/08/20 Surgical History Left hand carpal tunnel surgery - Dr. Marshall 07/2020 Hospitalization History broke lt leg 1999 [facility] Other Hisfzbw general Narrative - Reported* Type Description Date Medical History THYROID Medical History FATIGUE Medical History high blood pressure Medical History Atrial fibrillation Surgical History wisdom teeth 1997 Surgical History sleep clinic through [facility] - Dr Smith 2002 Surgical History Colonoscopy, Dr. Angelia lara -polyp removed, needs to return at age 53 2-5-[address] Puentes 03/22/18 Surgical History Colonoscopy, Dr. Velasco repeat in 08/08/20 Surgical History Left hand carpal tunnel surgery - Dr. Marshall 07/2020 Hospitalization History broke lt leg 1999 Hospitalization History A-Fib 07/2021 Hospitalization History A-Fib 10/2021 [facility] Other Hisdkoc general Narrative - Reported* Type Description Date Medical History THYROID Medical History FATIGUE Medical History high blood pressure Medical History Atrial fibrillation Surgical History wisdom teeth 1997 Surgical History sleep clinic through [facility] - Dr Smith 2002 Surgical History Colonoscopy, Dr. Angelia lara -polyp removed, needs to return at age 53 2-5-[address] Puentes 03/22/18 Surgical History ColonoscopyDr. Velasco repeat in 202408/08/20 Surgical History Left hand carpal tunnel surgery - Dr. Marshall 07/2020 Hospitalization History broke lt leg 1999 Hospitalization History A-Fib 07/2021 Hospitalization History A-Fib 10/2021 [facility] Other History of Present illness Narrative* The patient presents with paroxysmal atrial fibrillation. The treatment strategy for this patient is rhythm control. He states his atrial fibrillation has been poorly controlled since the last visit. * Symptoms: worsened palpitations, stable chest pain, worsened exercise intolerance, stable dyspnea on exertion and stable dizziness. Associated symptoms include no syncope. * Risks: no increased risk for falling. * Medications: the patient is adherent with his medication regimen. He denies medication side effects. [facility] Gliph DO Work Phone: History of Present illness Narrative* The patient presents with paroxysmal atrial fibrillation. The treatment strategy for this patient is rhythm control. He states his atrial fibrillation has been poorly controlled since the last visit. * Symptoms: worsened palpitations, stable chest pain, worsened exercise intolerance, stable dyspnea on exertion and stable dizziness. Associated symptoms include no syncope. * Risks: no increased risk for falling. * Medications: the patient is adherent with his medication regimen. He denies medication side effects. [facility] Work Phone: History of Present illness NarrativePatient returns in follow-up of problems as noted. He is doing well. He has had no breakthroughs ofatrial fibrillation but from time to time has some PACs and or palpitation. He was educated and reassured in this regard. His blood pressure appears to be well controlled because of this no further adjustments in therapy are necessary. We did advocate the merits of diet exercise and weight loss.[facility] Work Phone: history of Present illness NarrativePatient returns in follow-up of problems as noted. He is doing well. He has had no paroxysms of atrial fibrillation and he believes he could tell if or when he is out of rhythm. Because of this we recommend continued therapy as is. Blood pressure appears to be well controlled because of this no adjustments in therapy are necessary. An EKG was done today to assess QT interval and risk for proarrhyt hmia (due to dofetilide) and it appears that risk of this development is low based upon his currentmeasured QT interval. As before the merits of diet exercise and weight loss were advocated.[facility] Work Phone: history of Present illness Narrative* Patient returns in follow-up of problems as noted. In the interim he is done well. He has had no atrial fibrillation but does have occasional palpitations which I believe are on the basis of PACs. This was discussed and reviewed with him we showed him his EKG suggesting this is the cause. That EKG also demonstrates a satisfactory QT interval. * He is mildly hypertensive. We discussed intensification of therapy but he advises me that he has had several episodes of orthostatic hypotension with near syncope. He was recently started on an alpha-elijah for prostate trouble and although his blood pressure is high today I believe he is probably normotensive or at times hypotensive and because of this we will hold off on any changes in medicaltherapy until treatment for his prostate problem has resolved. As before I did advocate the merits of diet and weight loss. [facility] 250 DO Work Phone: Hospital course Narrative No data available for this section [facility] progress note No data available for this section [facility] reason for visit Narrativereview labs, discuss multiple issues, see treatment plan for further informationNocox branson [facility] Other Summary Purpose Family History No Family History Records FoundUnknown Family Member Name Dates Details Bradycardia: Father Status:Active Family history of atrial fib rillation: Father(V17.49, Z82.49) Status:Active Family history of hypertensi on: Father(V17.49, Z82.49) Status:Active Family history of cardiac pa cemaker: Father(V17.49, Z82.49) Status:Active Family history of asthma: Mo ther(V17.5, Z82.5) Status:Active Family history of diabetes m ellitus: Brother(V18.0, Z83.3) Status:Active Unknown Family Member Name Dates Details Bradycardia: Father Status:Active Family history of atrial fib rillation: Father(V17.49, Z82.49) Status:Active Family history of hypertensi on: Father(V17.49, Z82.49) Status:Active Family history of cardiac pa cemaker: Father(V17.49, Z82.49) Status:Active Family history of asthma: Mo ther(V17.5, Z82.5) Status:Active Family history of diabetes m ellitus: Brother(V18.0, Z83.3) Status:Active Unknown Family Member Name Dates Details Bradycardia: Father Status:Active Family history of atrial fib rillation: Father(V17.49, Z82.49) Status:Active Family history of hypertensi on: Father(V17.49, Z82.49) Status:Active Family history of cardiac pa cemaker: Father(V17.49, Z82.49) Status:Active Family history of asthma: Mo ther(V17.5, Z82.5) Status:Active Family history of diabetes m ellitus: Brother(V18.0, Z83.3) Status:Active Unknown Family Member Name Dates Details Bradycardia: Father Status:Active Family history of atrial fib rillation: Father(V17.49, Z82.49) Status:Active Family history of hypertensi on: Father(V17.49, Z82.49) Status:Active Family history of cardiac pa cemaker: Father(V17.49, Z82.49) Status:Active Family history of asthma: Mo ther(V17.5, Z82.5) Status:Active Family history of diabetes m ellitus: Brother(V18.0, Z83.3) Status:Active Unknown Family Member Name Dates Details Bradycardia: Father Status:Active Family history of atrial fib rillation: Father(V17.49, Z82.49) Status:Active Family history of hypertensi on: Father(V17.49, Z82.49) Status:Active Family history of cardiac pa cemaker: Father(V17.49, Z82.49) Status:Active Family history of asthma: Mo ther(V17.5, Z82.5) Status:Active Family history of diabetes m ellitus: Brother(V18.0, Z83.3) Status:Active Unknown Family Member Name Dates Details Bradycardia: Father Status:Active Family history of atrial fib rillation: Father(V17.49, Z82.49) Status:Active Family history of hypertensi on: Father(V17.49, Z82.49) Status:Active Family history of cardiac pa cemaker: Father(V17.49, Z82.49) Status:Active Family history of asthma: Mo ther(V17.5, Z82.5) Status:Active Family history of diabetes m ellitus: Brother(V18.0, Z83.3) Status:Active Unknown Family Member Name Dates Details Bradycardia: Father Status:Active Family history of atrial fib rillation: Father(V17.49, Z82.49) Status:Active Family history of hypertensi on: Father(V17.49, Z82.49) Status:Active Family history of cardiac pa cemaker: Father(V17.49, Z82.49) Status:Active Family history of asthma: Mo ther(V17.5, Z82.5) Status:Active Family history of diabetes m ellitus: Brother(V18.0, Z83.3) Status:Active Relationship Condition Age at Onset Recorded Date/T rayna Not Specified Asthma Unknown father Malignant neoplasm of skin Unknown Malignant neoplasm of prostate Unknown Parkinson's disease Unknown Atrial fibrillation Unknown Non-Hodgkin's lymphoma Unknown Unknown Family Member Name Dates Details Bradycardia: Father Status:Active Family history of atrial fib rillation: Father(V17.49, Z82.49) Status:Active Family history of hypertensi on: Father(V17.49, Z82.49) Status:Active Family history of cardiac pa cemaker: Father(V17.49, Z82.49) Status:Active Family history of asthma: Mo ther(V17.5, Z82.5) Status:Active Family history of diabetes m ellitus: Brother(V18.0, Z83.3) Status:Active Unknown Family Member Name Dates Details Bradycardia: Father Status:Active Family history of atrial fib rillation: Father(V17.49, Z82.49) Status:Active Family history of hypertensi on: Father(V17.49, Z82.49) Status:Active Family history of cardiac pa cemaker: Father(V17.49, Z82.49) Status:Active Family history of asthma: Mo ther(V17.5, Z82.5) Status:Active Family history of diabetes m ellitus: Brother(V18.0, Z83.3) Status:Active Unknown Family Member Name Dates Details Bradycardia: Father Status:Active Family history of atrial fib rillation: Father(V17.49, Z82.49) Status:Active Family history of hypertensi on: Father(V17.49, Z82.49) Status:Active Family history of cardiac pa raquel: Father(V17.49, Z82.49) Status:Active Family history of asthma: Brooks ther(V17.5, Z82.5) Status:Active Family history of diabetes m wali: Brother(V18.0, Z83.3) Status:Active Advance Directives No Advanced Directives Records Found Advance Directive Response Recorded Date/ Time Advance Directives No April 9:07am Advance Directive Response Recorded Date/ Time Advance Directives No April 8:07am Chief Complaint * EKG done in office today ordered by Dr. Maged Morrell MD due to AFIB. Patient was recently in hospital and was started on Sotalol. In office today complains of pounding in his chest. Medication list updated. EKG reviewed by Carmen Doe NP while in office. * to Dr. Fatoumata Ji MD for review in Dr. Maged Morrell MD absence EKG done in office due to AFIB orderd by Dr. Fatoumata Ji MD. Patient called into office with low heart rate and palptations. Medications were verbally reviewed. EKG reviiewed by Dr. Hesham Ramirez DO while patient in the office.* I am tired * AFTAB RAPP is being seen for follow-up of a hospitalization for atrial fibrillation. * He is ambulatory with steady gait, accompanied by . * July 2021: * Patient was recently hospitalized at [facility]. The patient was seen in Cardiology consult with subsequent cardiovascular management by [facility]. Hospitalization records have been reviewed. * Reason for Cardiology Consultation: afib * Consulting Sound Effects Manager: Dr. Morrell * Cardiovascular testing: echo * Changes to cardiovascular medical regimen at time of discharge: sotalol 120mg BID * Discharge disposition: Home * At f/u ECG visit - ECG was difficult to discern. Repeat Holter PVC/Couplets, 40% supraventricular with PAF. * Reports heart rates at home 'low - sometimes high 20s (on pulse ox) - psuedobradycardia * Can feel going in/out t/o the day * Compliant with sotalol * +AWAIS compliant with CPAP -new machine * BP at home 'good' * ETOH: none * Caffeine: none * Chest 'hurts' sometimes last all day. 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 Had been having prior to presentation to the ER with negative cardiac enzymes in setting of HR 170. * Cardiac Risk: 2017 Calcium Score 13 * Treated HTN 3 years * Unknown lipids * No DM but 'was close' * Non-smoker * Neg family history premature CAD in primary relatives. * No pulmonary treatment (maybe asthma as a child) * CHADS VASc : 1 (htn) * I am tired * AFTAB RAPP is being seen for follow-up of a hospitalization for atrial fibrillation. * He is ambulatory with steady gait, accompanied by . * July 2021: * Patient was recently hospitalized at [facility]. The patient was seen in Cardiology consult with subsequent cardiovascular management by [facility]. Hospitalization records have been reviewed. * Reason for Cardiology Consultation: afib * Consulting Sound Effects Manager: Dr. Morrell * Cardiovascular testing: echo * Changes to cardiovascular medical regimen at time of discharge: sotalol 120mg BID * Discharge disposition: Home * At f/u ECG visit - ECG was difficult to discern. Repeat Holter PVC/Couplets, 40% supraventricular with PAF. * Reports heart rates at home 'low - sometimes high 20s (on pulse ox) - psuedobradycardia * Can feel going in/out t/o the day * Compliant with sotalol * +AWAIS compliant with CPAP -new machine * BP at home 'good' * ETOH: none * Caffeine: none * Chest 'hurts' sometimes last all day. 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 Had been having prior to presentation to the ER with negative cardiac enzymes in setting of HR 170. * Cardiac Risk: 2017 Calcium Score 13 * Treated HTN 3 years * Unknown lipids * No DM but 'was close' * Non-smoker * Neg family history premature CAD in primary relatives. * No pulmonary treatment (maybe asthma as a child) * CHADS VASc : 1 (htn) AFTAB RAPP is being seen for follow-up of a hospitalization for.AFTAB RAPP is being seen for a 6 month follow-up of.AFTAB RAPP is being seen for a 6 month follow-up of.AFTAB RAPP is being seen for a 6 month follow-up of. Chief Complaint and Reason for Visit Chief Complaint R31.9 Chief Complaint N30.90 Chief Complaint r91.1 Reason for Referral Specialty Diagnoses / Procedures Referred By Contac t Referred To Contact Radiology Diagnoses Hyperlipidemia, unspecified Unspecified atrial fibrillation (CMS/HCC) Procedures CT cardiac scoring wo IV contrast Cheri Pringle, DO [address] [place] [address] Referral ID Status Reason Start Date Expiration Date Visits Requested Visits Authorized [id number] Authorized Perform Procedure 3 06/08/2024 1 1 Reason appt pt needs cons ult to evaluate throat, difficulty swallowing pills, voice sounds raspy Diagnosis 1 Dysphagia (R13.10) Referral Organization [facility] Family Moe Chiu Referring Provider First Name Cheri Referring Provider Last Name Yary Referring Provider Specialty Family Prac natalya Referred Organization [facility] Referred Provider Andre Carlos Referred Address ,[place], [place],[address] Referred Provider Specialty Ear, Nose an d Throat Referral Priority Routine General Notes Afua Tadeo 06/07/2023 08:58:11 AM > referral faxed thru [facility] to Dr Carlos with visit note and insurance card. pt understands he will be contacted to schedule this appt. Additional Source Comments (unrecognized sect ion and content) No Status Records FoundNo Status Records FoundNo Status Records FoundNo Status Records FoundNo Status Records FoundNo Status Records FoundNo Status Records Found INFORMATION SOURCE (unrecogn ized section and content) DATE CREATED AUTHOR 06/11/2019 [facility] DATE CREATED AUTHOR AUTHOR'S ORGANIZ ATION 04/29/2021 [facility] DATE CREATED AUTHOR AUTHOR'S ORGANIZ ATION 07/03/2022 [facility] DATE CREATED AUTHOR AUTHOR'S ORGANIZ ATION 12/25/2022 [facility] DATE CREATED AUTHOR AUTHOR'S ORGANIZ ATION 06/28/2023 [facility] DATE CREATED AUTHOR AUTHOR'S ORGANIZ ATION 07/29/2023 [facility] EPIC DATE CREATED AUTHOR AUTHOR'S ORGANIZ ATION 08/06/2023 [facility] Reason for Visit (unrecogniz ed section and content) Specialty Diagnoses / Procedures Referred By Contac t Referred To Contact Radiology Diagnoses Hyperlipidemia, unspecified Unspecified atrial fibrillation ([facility]) Procedures CT cardiac scoring wo IV contrast Cheri Pringle DO [address] [place] [address] Referral ID Status Reason Start Date Expiration Date Visits Requested Visits Authorized [id number] Authorized Perform Procedure 3 06/08/2024 1 1 Care Teams (unrecognized sec tion and content) Team Status: Inactive Member Role Status Dates Cheri Pringle DO Primary Care Provider, Attending Pro vider Active Team Status: Active Member Role Status Dates Cheri Pringle DO Primary Care Provider Active Team Status: Inactive Member Role Status Dates Cheri Pringle DO Attending Provider Active Team Status: Inactive Member Role Status Dates Cheri Pringle DO Attending Provider Active PHYSICIAN NO FAMILY Primary Care Provider Active Cost Estimating Engineer Relationship Specialty Start Date End Date Cheri Pringle DO [address] [place] [address] PCP - General 08/22/99 Goals (unrecognized section and content) Goals may be documented in a n alternate section FOR RECORDS PERTAINING TO PATIENTS WHO ARE OR HAVE BEEN ENROLLED IN A CHEMICAL DEPENDENCY/SUBSTANCEABUSE PROGRAM, SOME INFORMATION MAY BE OMITTED. This clinical summary was aggregated from multiple sources. Caution should be exercised in using it in the provision of clinical care. This summary normalizes information from multiple sources, and as a consequence, information in this document may materially change the coding, format and clinical context of patient data. In addition, data may be omitted in some cases. CLINICAL DECISIONS SHOULD BE BASED ON THE PRIMARY CLINICAL RECORDS. [facility] [employer] provides no warranty or guarantee of the accuracy or completeness of information in this document.
--- NOTE | 2023-08-19 14:04 | FL_ITS ---
The [address] [address] Patient Name: MEAGHAN RAPP MRN: [id number] date: 1965 Sex: M [facility] Accession/Order Number: [id number] Exam Date: 08/19/2023 14:15 Report Date: 08/19/2023 14:46 At the request of: ANDRE CARLOS Procedure: FL cineradiography PROCEDURE: FL barium swallow, FL cineradiography COMPARISON: None. HISTORY: Pharyngoesophageal Dysphagia R13.14 TECHNIQUE: An air contrast upper gastrointestinal series was performed in the usual manner. Standard level fluoroscopic mode of operation utilized. FINDINGS: ESOPHAGUS:Narrowing of the caudal aspect of the larynx versus upper esophagus resulting in narrowing of the lumen with demonstration of a 13 mm barium tablet getting stuck at this level, with subsequent clearing during repeated swallowing. Lateral views show a filling defect along the posterior wall of the larynx/proximal esophagus; mass versus degenerative enthesophytes of the cervical spine. FL/FL cineradiography IMPRESSION: 1. Laryngeal/upper esophageal narrowing secondary to posterior wall filling defect. I suspect degenerative osteophytes from the cervical spine but a soft tissue mass cannot be excluded. CT neck soft tissue with IV contrast is recommended for further evaluation. Electronically authenticated by: AIME BAILEY Date: 08/19/2023 14:46
--- NOTE | 2023-08-19 14:04 | FL_ITS ---
The [address] [address] Patient Name: MEAGHAN RAPP MRN: [id number] date: 1965 Sex: M [facility] Accession/Order Number: [id number] Exam Date: 08/19/2023 14:15 Report Date: 08/19/2023 14:46 At the request of: ANDRE CARLOS Procedure: FL barium swallow PROCEDURE: FL barium swallow, FL cineradiography COMPARISON: None. HISTORY: Pharyngoesophageal Dysphagia R13.14 TECHNIQUE: An air contrast upper gastrointestinal series was performed in the usual manner. Standard level fluoroscopic mode of operation utilized. FINDINGS: ESOPHAGUS:Narrowing of the caudal aspect of the larynx versus upper esophagus resulting in narrowing of the lumen with demonstration of a 13 mm barium tablet getting stuck at this level, with subsequent clearing during repeated swallowing. Lateral views show a filling defect along the posterior wall of the larynx/proximal esophagus; mass versus degenerative enthesophytes of the cervical spine. FL/FL barium swallow IMPRESSION: 1. Laryngeal/upper esophageal narrowing secondary to posterior wall filling defect. I suspect degenerative osteophytes from the cervical spine but a soft tissue mass cannot be excluded. CT neck soft tissue with IV contrast is recommended for further evaluation. Electronically authenticated by: AIME BAILEY Date: 08/19/2023 14:46
== END 2023-08-19 13:56 | disposition home or self-care (01) ==
LOC: FL 13:56
PROVIDERS: PCP Family Medicine; Visit Provider Otolaryngology
DX: R13.14 Dysphagia, pharyngoesophageal phase (principal)
CPT/HCPCS: 74220; 76120

== ENCOUNTER 2023-10-08 07:58 | Outpatient (OUT) | payer BC, SELFPAY ==
--- NOTE | 2023-10-08 | CT_ITS ---
[address] [address] Patient Name: MEAGHAN RAPP MRN: [id number] date: 1965 Sex: M Assigned Patient Location: LAB Current Patient Location: Accession/Order Number: [id number] Exam Date: 10/08/2023 09:00 Report Date: 10/09/2023 03:33 At the request of: ANDRE CARLOS Procedure: CT soft tissue neck w con E EXAMINATION: CT Soft Tissue Neck with IV Contrast TECHNIQUE: Axial CT imaging of the neck was performed following the intravenous injection of contrast material according to the standard protocol. Sagittal and coronal 2-D reformats were made from source images. CONTRAST: The amount and type of contrast are recorded int he medical record. QPP DOCUMENTATION: At least one of the following dose reduction techniques was utilized: Iterative reconstruction, and/or Automatic Exposure Control, and/or mA/kV adjustment based on body size. INDICATION: . PHARYNGOESOPHAGEAL DYSPHAGIA r13.14 COMPARISON: None FINDINGS: Pharynx/Larynx: No evidence of mucosal base mass lesions throughout the nasopharynx, oropharynx, hypopharynx, or larynx. Normal appearance of the epiglottis. No retropharyngeal fluid collections. The trachea and visualized esophagus are unremarkable. Oral Cavity: No suspicious masses throughout the tongue or floor the mouth. Lymph Nodes: No pathologically enlarged cervical lymph nodes. Vascular: The arteries of the neck are poorly assessed due to phase of contrast enhancement. Thyroid: The thyroid gland is unremarkable. Parotid and Submandibular Glands: The submandibular and parotid glands have a normal appearance. Osseous Structures: There are degenerative changes throughout the cervical spine. There are large anterior endplate osteophytes at the C5-C6 level and moderate anterior endplate osteophytes at the C4-C5 level. These osteophytes result in mass effect on the hypopharynx/upper esophagus. There is a prominent posterior disc osteophyte complex at C6-C7 severely narrowing the spinal canal. Orbits and Paranasal Sinuses: The visualized orbits and paranasal sinuses are unremarkable. Intracranial: The visualized intracranial structures are unremarkable. Lung Apices: The visualized lung apices are clear. CT/CT soft tissue neck w con IMPRESSION: There are large anterior endplate osteophytes at C5-C6 and moderate anterior endplate osteophytes at C4-C5. They results in mass effect on the hypopharynx and upper esophagus. Large posterior disc osteophyte complex at C6-C7 severely narrows the spinal canal. No suspicious masses, fluid collections, or adenopathy throughout the neck. Electronically authenticated by: TYRONE CHESTER Date: 10/09/2023 03:33
--- OUTSIDE RECORDS SUMMARY | 2023-10-08 08:00 | XMS_ITS | CCD ---
Author Name Unknown Address [address] [facility] [address] [place] [address] Organization [facility] Care Team Providers Care Tile Trimmer Name Role Phone DR YVES VELASCO Admitting Unavailable ROD, DR MICHAEL Consulting Unavailable DR YVES VELASCO Attending Unavailable YARY, DR ALONZO Attending Unavailable YARY, DR ALONZO Admitting Unavailable Cheri Pringle Unavailable Unavailable Unavailable Unavailable Cheri Pringle Unavailable Cheri Pringle Unavailable Cheri Pringle Unavailable DO Cheri Pringle Primary Care Provider DO Cheri Pringle Attending Provider Unavailable Unavailable DO Cheri Pringle Attending Provider NO FAMILY, PHYSICIAN Primary Care Provider Unava ilable Porsche RAMIREZ, Dr. Maged Morin Referring Unavailable Porsche RAMIREZ, Dr. Maged Morin Attending Unavailable Yary, Dr. Cheri Light Primary Care Unavaila ble Cheri Pringle Primary Care Physician Mikel CHAVEZ Attending Unavailable Mikel CHAVEZ Attending Unavailable Mikel CHAVEZ Attending Unavailable Mikel CHAVEZ Attending Unavailable Cheri Pringle DO Primary Care Provider [phone] DO Cheri Pringle Primary Care Provider [phone] DO Cheri Pringle Attending Provider [phone] MAGED MORRELL Attending Unavailable CHERI PRINGLE Primary Care Unavailable MAGED MORRELL Referring Unavailable CHERI PRINGLE Primary Care Unavailable CHERI PRINGLE Referring Unavailable CHERI PRINGLE Primary Care Unavailable Anthony Overton Unavailable ANDRE CARLOS Attending Unavailable ANDRE CARLOS Attending Unavailable NO FAMILY, PHYSICIAN Primary Care Unavailable Cheri Prnigle Admitting Unavailable Cheri Pringle Attending Unavailable Cheri Pringle Admitting Unavailable Cheri Pringle Attending Unavailable Cheri Pringle Attending Unavailable Cheri Pringle Admitting Unavailable Cheri Pringle Primary Care Unavailable Allergies Allergy Classification Reported Allergen(s) Allergy Type Date of Onset Reaction(s) Facility (9 sources) Penicillins; Translations: [PENICILLINS] Drug allergy (disorder) 4 [facility] Repository (15 sources) Penicillins; Translations: [Penicillins] Allergy to drug (finding) Rash [facility] [facility] [address] DO Work Phone: (13 sources) Penicillins (Antibiotic) Propensity to adverse reactions rash [facility] [employer] Other (4 sources) Penicillin; Translations: [penicillin] Drug Allergy Unknown (qualifier value), rash [facility] (3 sources) Penicillins Drug Allergy 4 [facility] (1 source) ALLERGIES NOT ON FILE; Translations: [ALLERGIES NOT ON FILE] Propensity to adverse reactions (disorder) [facility] Repository (1 source) Penicillins Drug allergy (disorder) [address] [place] [address] Repository Medications Current Medications Medication Drug Class(es) [...] 1 tablet Orally Once a day Active aspirin 81 mg delayed release oral tablet (20 sources) Platelet Aggregation Inhibitor, Nonsteroidal Anti-inflammatory Drug Start: 01-10-2023 take 1 tablet by mouth once daily aspirin 81 mg EC tablet Take 1 tablet (81 mg) by mouth once daily. 0 01/10/2023 Active Start: 08-07-2020 End: 10-28-2021 take 81 mg [...] a day Active Baby Aspirin Act lalo atorvastatin 10 mg oral tablet (4 sources) HMG-CoA Reductase Inhibitor Start: 08-26-2023 End: 08-25-2024 take 1 tablet by mouth once daily atorvastatin (Lipitor) 10 mg tablet Indications: Mixed hyperlipidemia Take 1 tablet (10 mg) by mouth once daily. 90 tablet 3 08/26/2023 08/25/2024 Active cholecalciferol 0.05 mg oral tablet (20 sources) Vitamin D Start: 08-07-2020 take 1 tablet by mouth once daily Cholecalciferol (Vitamin D3) (Vitamin D3) 50 mcg (2,000 unit) Tablet Active 50 MCG PO Daily August 07, 2020 12:00am take 2 capsules by m outh in the morning cholecalciferol (Vitamin D3) 50 mcg (2,0 00 unit) capsule Take 2 capsules (100 mcg) by mouth early in the morning.. 0 Active take 1 capsule by mouth once meche ly Vitamin D (Cholecalciferol) 50 MCG (2000 UT) Oral Capsule TAKE 1 CAPSULE Daily Quantity: 0 Refills: 0 Ordered: 02-Oct-2021 DO Active CPAP Mask and supplies (14 sources) Start: 07-07-2018 CPAP Mask and supplies as directed Dx: G47.33 16 Jun, 2018 Active cranberry conc-ascorbic acid (Cranberry Plus Vitamin C) 140-100 mg capsule (3 sources) take 1 capsule by mouth once daily cranberry conc-ascorbic acid (Cranberry Plus Vitamin C) 140-100 mg capsule Take 1 capsule by mouth once daily. 0 Active Cranberry preparation (5 sources) Non-Standardized Food Allergenic Extract, Non-Standardized Plant Allergenic Extract Cranberry Active dofetilide 0.25 mg oral capsule (20 sources) Antiarrhythmic Start: 08-26-2023 End: 08-25-2024 take 1 capsule by mouth every twelve hours dofetilide (Tikosyn) 250 mcg capsule Indications: Paroxysmal atrial fibrillation (CMS/HCC) Take 1 capsule (250 mcg) by mouth every 12 hours. 180 capsule 3 08/26/2023 08/25/2024 Active Start: 01-10-2023 dofetilide 250 mcg oral capsule Refills(s) 0 Start Date: 01/10/23 Status: Ordered Start: 10-30-2021 End: 08-26-2023 take 1 capsule by mouth twice daily dofetilide (Tikosyn) 250 mcg capsule Take 1 capsule (250 mcg) by mouth twice a day. 0 10/30/2021 08/26/2023 Discontinued (Reorder) Start: 10-30-2021 take 1 capsule by mo [facility] every twelve hours Dofetilide 250 MCG Oral Capsule TAKE 1 CAPSULE Every twelve hours Quantity: 180 Refills: 3 Ordered: 09-Feb-2022 Maged Nuno DO Start : 30-Oct-2021 Active Start: 10-30-2021 take 250 ug by mouth every twelve hours Dofetilide Active 250 MCG PO Q12H 60 30 October 30, 2021 12:00am dutasteride 0.5 mg oral capsule (10 sources) 5-alpha Reductase Inhibitor Start: 03-07-2023 End: 03-23-2024 take 1 capsule by mouth once daily dutasteride 0.5 mg Cap 0.5 mg = 1 cap(s), Oral, Daily, X 30 day(s), # 30 cap(s), Refills(s) 11, [id number], 193, cm, 03/07/23 14:45:00 EDT, Height/Length Dosing, 178, kg, 03/07/23 14:45:00 EDT, Weight Dosing Start Date: 03/29/23 Stop Date: 03/23/24 Status: Ordered [id number] 0.3 ml EPINEPHrine 1 mg/ml auto-injector (18 sources) alpha-Adrenergic Agonist, beta-Adrenergic Agonist, Catecholamine Start: 11-26-2021 EpiPen 2-Timoteo 0.3 MG/0.3ML as directed Injection Nov, Active Start: 11-26-2021 EPINEPHrine 0. 3 mg/0.3 mL injection syringe Inject 0.3 mL (0.3 mg) as directed. 0 11/26/2021 Active Start: 11-26-2021 EPINEPHrine 0. 3 MG/0.3ML Injection Solution Auto-injector inject 0.3 milliliters intramuscularly in OUTER THIGH and HOLD fo... (REFER TO PRESCRIPTION NOTES). Quantity: 2 Refills: 0 Ordered: 26-Nov-2021 DO Start : 26-Nov-2021 Active krill oil (20 sources) Start: 08-07-2021 take 1 capsule by mouth once daily Jmsbt-Ww-3-Zrv-Nny-Ahkurzp-Ast (Krill Oil) [id number] mg Capsule Active 1 CAP PO Daily August 07, 2021 12:00am Start: 08-07-2021 take 1 capsule by mouth once daily Pdsxa-Xq-5-Zoc-Exu-Zogtjnc-Ast (Krill Oi l) [phone] mg Capsule Active 1 CAP PO Daily August 07, 2021 1:00am Krill Oil 1000 M G as directed Orally Active take 1 capsule by mouth once daily advvx-kx-7-wfr-jnk-afimeag-ast (krill oi l) 1,822-543-55-80 mg capsule Take 1 capsule by mouth once daily. 0 Active Magnesium (20 sources) Start: 08-07-2020 take 250 mg by mouth twice daily Magnesium Active 250 MG PO Twice daily August 07, 2020 12:00am Start: 08-07-2020 take 250 mg by mouth twice meche ly Magnesium Active 250 MG PO Twice daily August 07, 2020 1:00am take 1 capsule by mo [facility] twice daily Magnesium 250 MG 1 capsule with a meal Orally twice daily Active [facility] Magnesium 250 MG Oral Tablet Take 1 tablet twice daily Quantity: 0 Refills: 0 Ordered: 21-Sep-2021 DO Active take 1 tablet by mouth once margarita y Magnesium 250 MG Oral Tablet TAKE 1 TABLET DAILY. Quantity: 0 Refills: 0 Ordered: 10-Aug-2021 DO Active take 1 capsule by mo [facility] once daily Magnesium 250 MG 1 capsule with a meal Orally Once a day Active magnesium gluconate 250 mg oral tablet (5 sources) Start: 01-10-2023 take 1 tablet by mouth twice daily magnesium gluconate 12.5 mg magne- sium (250 mg) tablet Take 1 tablet (250 mg) by mouth twice a day. 0 01/10/2023 Active Nature's Bounty Red Krill Oil (2 sources) Start: 01-10-2023 take 1 mg by mouth once daily Nature's Bounty Red Krill Oil mg, Oral, Daily, Refill(s) 0 Start Date: 01/10/23 Status: Ordered olmesartan medoxomil 20 mg oral tablet (20 sources) Angiotensin 2 Receptor Elijah Start: 12-09-2021 End: 08-25-2024 take 1 tablet by mouth once daily olmesartan (BENIcar) 20 mg tablet Indications: Hypertension, benign Take 1 tablet (20 mg) by mouth once daily. 90 tablet 3 08/26/2023 08/25/2024 Active Start: 10-30-2021 take 1 tablet by gonzalo once daily Olmesartan (Benicar) 40 mg tablet Active 40 MG PO Daily October 30, 2021 12:00am take 1 tablet by gonzalo twice daily Olmesartan Medoxomil 40 MG 1 tablet Orally twice per day Active Psyllium (20 sources) Start: 01-10-2023 Metamucil Oral , Refills(s) 0 Start Date: 01/10/23 Status: Ordered take 1 dose by mouth once daily psyllium (Metamucil) 3.4 gram packet Take 1 packet by mouth once daily. 0 Active Metamucil 48.57 % as directed Orally [...] day(s), # 30 tab(s), Refills(s) 1, Pharmacy: [facility] #[id number], 193, cm, 03/07/23 14:45:00 EDT, Height/Length Dosing, 178, kg, 03/07/23 14:45:00 EDT, Weight Dosing Start Date: 03/07/23 Stop Date: 05/06/23 Status: Ordered Vitamin D2 2000 Unit (14 sources) Start: 09-19-2017 take 1 tablet by mouth once daily Vitamin D2 2000 Unit OTC 1 tablet Orally qd Aug, Active Vitamin D3 (2 sources) Start: 01-10-2023 Vitamin D3 Refills(s) 0 Start Date: 01/10/23 Status: Ordered Completed/Discontinued Medications Medication Drug Class(es) Dates Sig (Normalized) Sig (Original) 24 hr alfuzosin hydrochloride 10 mg extended release oral tablet (3 sources) alpha-Adrenergic Elijah Start: 02-04-2023 End: 08-26-2023 take 1 tablet by mouth once daily alfuzosin (Uroxatral) 10 mg 24 hr tablet Take 1 tablet (10 mg) by mouth once daily. 0 02/04/2023 08/26/2023 Discontinued (Therapy completed) amLODIPine 5 mg oral tablet (13 sources) [...] 5:57pm doxycycline hyclate 100 mg oral capsule (13 sources) Tetracycline-class Drug Start: 06-01-2022 End: 08-26-2023 take 1 capsule by mouth twice daily doxycycline (Vibramycin) 100 mg capsule Take 1 capsule (100 mg) by mouth 2 times a day. 0 01/10/2023 08/26/2023 Discontinued (Therapy completed) take 1 tablet by mouth once margarita [...] Refills: 0 Ordered: 02-Oct-2021 DO Active Triamcinolone (11 sources) Corticosteroid Start: 10-20-2017 Kenalog -40 mg [...] Date Documented Da te Episodic/Chronic Adjustment disorders (14 sources) Feeling stressed; Translations: [Reaction to severe stress, unspecified] Chronic Asthma (15 sources) Asthma; Translations: [Asthma, unspecified type, unspecified] Onset: 3 08-16-2023 Chronic Cardiac dysrhythmias (20 sources) Atrial fibrillation; Translations: [Atrial fibrillation] Onset: 3 08-07-2021 Chronic Diabetes mellitus without complication (8 sources) Hyperglycemia, unspecified; Translations: [Hyperglycemia] Onset: 1 Resolved: 1 Episodic Disorders of lipid metabolism (20 sources) Hyperlipidemia; Translations: [Hyperlipidemia, unspecified] Onset: Resolved: 1 Chronic Esophageal disorders (3 sources) Laryngopharyngeal reflux; Translations: [Gastro-esophageal reflux disease without esophagitis] Onset: 3 08-16-2023 Chronic Essential hypertension (20 sources) Benign hypertension; Translations: [Benign essential hypertension] Onset: 1 Resolved: 1 Chronic Genitourinary symptoms and ill-defined conditions (1 source) Hematuria, unspecified Episodic Hyperplasia of prostate (7 sources) Benign prostatic hypertrophy with outflow obstruction; Translations: [Benign prostatic hyperplasia with lower urinary tract symptoms] Onset: 3 Chronic Inflammatory conditions of male genital organs (7 sources) Prostatitis; Translations: [Inflammatory disease of prostate, unspecified] Onset: 3 Episodic Nonspecific chest pain (5 sources) Chest pain; Translations: [Chest pain, unspecified] 08-07-2021 Episodic Nutritional deficiencies (20 sources) Vitamin D deficiency; Translations: [Vitamin D deficiency, unspecified] Onset: 1 Resolved: 1 Chronic Osteoarthritis (14 sources) Arthritis of joint of right shoulder region; Translations: [Primary osteoarthritis, right shoulder] Chronic Other aftercare (2 sources) 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 Episodic Other aftercare (4 sources) Drug therapy finding; Translations: [Long-term (current) use of other medications] Episodic Other and unspecified benign neoplasm (14 sources) History of polyp of colon; Translations: [Personal history of colonic polyps] Episodic Other circulatory disease (2 sources) Elevated blood-pressure reading, without diagnosis of hypertension Episodic Other connective tissue disease (14 sources) Bursitis of right shoulder; Translations: [Bursitis of right shoulder] Episodic Other diseases of veins and lymphatics (14 sources) Peripheral venous insufficiency; Translations: [Venous insufficiency (chronic) (peripheral)] Episodic Other gastrointestinal disorders (8 sources) Dysphagia; Translations: [Dysphagia, unspecified] Onset: 3 08-16-2023 Episodic Other gastrointestinal disorders (1 source) Dysphagia, unspecified Episodic Other infections; including parasitic (5 sources) Personal history of other infectious and parasitic diseases; Translations: [History of COVID-19] 08-07-2021 Episodic Other lower respiratory disease (2 sources) Nodule of lung; Translations: [Solitary pulmonary nodule] Episodic Other lower respiratory disease (5 sources) Dyspnea; Translations: [Shortness of breath] Onset: 4 08-26-2023 Episodic Other lower respiratory disease (2 sources) Shortness of breath; Translations: [Shortness of breath] Onset: 4 Episodic Other lower respiratory disease (1 source) Solitary nodule of lung; Translations: [Solitary pulmonary nodule] Episodic Other lower respiratory disease (2 sources) Solitary pulmonary nodule; Translations: [Solitary pulmonary nodule] Onset: 3 Episodic Other nervous system disorders (3 sources) Carpal tunnel syndrome; Translations: [Carpal tunnel syndrome, unspecified upper limb] Onset: 3 08-16-2023 Chronic Other nervous system disorders (14 sources) Sensory disorder of smell and/or taste; Translations: [Anosmia] Episodic Other nervous system disorders (14 sources) Loss of taste; Translations: [Parageusia] Episodic Other nervous system disorders (20 sources) Skin sensation disturbance; Translations: [Paresthesia of skin] Episodic Other nutritional; endocrine; and metabolic disorders (3 sources) Morbid obesity; Translations: [Morbid obesity] Chronic Other nutritional; endocrine; and metabolic disorders (16 sources) Body mass index 40+ - severely obese; Translations: [Morbid obesity] Onset: 9 08-26-2023 Chronic Other nutritional; endocrine; and metabolic disorders (3 sources) Morbid (severe) obesity due to excess calories; Translations: [Morbid (severe) obesity due to excess calories (CMS/HCC)] Onset: 3 Chronic Other nutritional; endocrine; and metabolic disorders (1 source) Body mass index (BMI) 45.0-49.9, adult Chronic Other nutritional; endocrine; and metabolic disorders (2 sources) Abnormal weight gain; Translations: [Weight gain R63.5] Onset: 1 Resolved: 1 Episodic Other nutritional; endocrine; and metabolic disorders (1 source) Abnormal weight loss Episodic Other screening for suspected conditions (not mental disorders or infectious disease) (20 sources) Echocardiogram abnormal; Translations: [Nonspecific (abnormal) findings on radiological and other examination of other intrathoracic organs] Onset: 1 Resolved: 1 Episodic Other upper respiratory disease (3 sources) Hoarse; Translations: [Dysphonia] Onset: 3 08-16-2023 Episodic Residual codes; unclassified (20 sources) Sleep apnea; Translations: [Unspecified sleep apnea] Onset: 3 01-10-2023 Chronic Residual codes; unclassified (2 sources) Sleep apnea, unspecified; Translations: [Sleep apnea G47.30] Onset: 1 Resolved: 1 Chronic Residual codes; unclassified (1 source) Obstructive sleep apnea syndrome; Translations: [Obstructive sleep apnea (adult) (pediatric)] Chronic Residual codes; unclassified (1 source) Obstructive sleep apnea (adult) (pediatric) Chronic Residual codes; unclassified (4 sources) Family history of malignant neoplasm of kidney; Translations: [Family history of malignant neoplasm of kidney] Onset: 3 Episodic Residual codes; unclassified (2 sources) Family history of cancer; Translations: [Family history of malignant neoplasm of prostate] Onset: 3 Episodic Residual codes; unclassified (2 sources) Family history of prostate cancer 01-10-2023 Episodic Spondylosis; intervertebral disc disorders; other back problems (1 source) Dorsalgia, unspecified Episodic Thyroid disorders (20 sources) Hypothyroidism; Translations: [Hypothyroidism, unspecified] Onset: 3 Chronic Past or Other Problems Problem Classification [...] hematuria; Translations: [Cystitis, unspecified without hematuria] Onset: 11-29-2022 Episodic Viral infection (1 source) COVID-19 Results Test Name Value Interpretation Reference Range Facility Cardiac stress study Samantha andrade 09-07-[address], [address], [place] [address] Exercise Stress Test Patient Name: CHEVY NEVES Ordering Provider: [id number] MAGED MORRELL Study Date: 09/07/2023 Reading Physician: [id number] Ji MD MRN/PID: [id number] Supervising Physician: [id number] Ji MD Fellow: Date of /Age: 10 1965 / 58 years Fellow: Gender: M Nurse: Brian Angelo RN Admission Status: Mixing Tumbler Operator: SARAH Height: 190.50 cm Technologist: Weight: 180.08 kg Additional Staff: BSA: 2.94 m2 BMI: 49.62 kg/m2 Patient Location: Study Type: STRESS TEST ONLY Diagnosis/ICD: Hyperlipidemia unspecified-E78.5; Essential (primary) hypertension-I10; Shortness of breath-R06.02 Indication: Hypertension CPT Codes: Stress Test Interpretation-29791; Stress Test Supervision-[id number] Falls Risk: Low: Patient has low risk for sustaining a fall; environmental safety interventions in place. Study Details: Correct procedure and correct patient verified verbally. Patient Performance: The peak heart rate achieved was 114 bpm, which was 71 % of the age predicted target heart rate of 160 bpm. The resting blood pressure was 134/74 mmHg with a heart rate of 58 bpm. The standing blood pressure was 138/82 mmHg with a heart rate of 58 bpm. The patient's functional capacity was below average. The patient developed fatigue during the stress exam. The symptoms resolved with rest. The blood pressure response was normal. The test was terminated due to: fatigue. Sinus tachycardia. Double Product (HR x BP): 185. Baseline ECG: Normal sinus rhythm. Stress Stage Data: + +--- +------+-------+ HR Sys BP Ridley BP + +--- +------+-------+ Baseline Resting 58 134 74 + +--- +------+-------+ Baseline Standing 58 138 82 + +--- +------+-------+ Stage I 93 146 86 + +--- +------+-------+ Stage II 114 162 84 + +--- +------+-------+ Recovery ECG: The heart rate recovery was normal. + +---+---- --+-------+ HR Sys BP Ridley BP + +---+---- --+-------+ Recovery I 113 162 82 + +---+---- --+-------+ Recovery II 91 162 78 + +---+---- --+-------+ Recovery III 68 148 78 + +---+---- --+-------+ Recovery IV 68 138 68 + +---+---- --+-------+ Recovery V 60 132 76 + +---+---- --+-------+ Summary: 1. Submaximal graded exercise stress test without diagnostic ST-T changes for ischemia. 2. No provoked chest pain or arrhythmia. 3. Blunted heart rate response to exercise. 4. Poor cardiopulmonary conditioning. 5. Normal heart recovery phase. 6. Patient exercised for a total of 5 minutes per the Renard protocol achieving 71% of maximum predicted heart rate and workload of 7 METS. 7. Submaximal level of stress achieved. [id number] Fatoumata Ji MD Electronically signed on 09/07/2023 at 5:26:14 PM Final Fatoumata Morris MD - 09/07/[address], [address] [facility], [place] [address] Exercise Stress Test Patient Name: CHEVY NEVSE Ordering Provider: [id number] MAGED MORRELL Study Date: 09/07/2023 Reading Physician: [id number] Ji MD MRN/PID: [id number] Supervising Physician: Kimberly Ji MD Fellow: Date of /Age: 10 1965 / 58 years Fellow: Gender: Vipul Nurse: Brian Angelo RN Admission Status: Mixing Tumbler Operator: SARAH Height: 190.50 cm Technologist: Weight: 180.08 kg Additional Staff: BSA: 2.94 m2 BMI: 49.62 kg/m2 Patient Location: Study Type: STRESS TEST ONLY Diagnosis/ICD: Hyperlipidemia unspecified-E78.5; Essential (primary) hypertension-I10; Shortness of breath-R06.02 Indication: Hypertension CPT Codes: Stress Test Interpretation-85713; Stress Test Supervision-[id number] Falls Risk: Low: Patient has low risk for sustaining a fall; environmental safety interventions in place. Study Details: Correct procedure and correct patient verified verbally. Patient Performance: The peak heart rate achieved was 114 bpm, which was 71 % of the age predicted target heart rate of 160 bpm. The resting blood pressure was 134/74 mmHg with a heart rate of 58 bpm. The standing blood pressure was 138/82 mmHg with a heart rate of 58 bpm. The patient's functional capacity was below average. The patient developed fatigue during the stress exam. The symptoms resolved with rest. The blood pressure response was normal. The test was terminated due to: fatigue. Sinus tachycardia. Double Product (HR x BP): 185. Baseline ECG: Normal sinus rhythm. Stress Stage Data: + +--- +------+-------+ HR Sys BP Ridley BP + +--- +------+-------+ Baseline Resting 58 134 74 + +--- +------+-------+ Baseline Standing 58 138 82 + +--- +------+-------+ Stage I 93 146 86 + +--- +------+-------+ Stage II 114 162 84 + +--- +------+-------+ Recovery ECG: The heart rate recovery was normal. + +---+---- --+-------+ HR Sys BP Ridley BP + +---+---- --+-------+ Recovery I 113 162 82 + +---+---- --+-------+ Recovery II 91 162 78 + +---+---- --+-------+ Recovery III 68 148 78 + +---+---- --+-------+ Recovery IV 68 138 68 + +---+---- --+-------+ Recovery V 60 132 76 + +---+---- --+-------+ Summary: 1. Submaximal graded exercise stress test without diagnostic ST-T changes for ischemia. 2. No provoked chest pain or arrhythmia. 3. Blunted heart rate response to exercise. 4. Poor cardiopulmonary conditioning. 5. Normal heart recovery phase. 6. Patient exercised for a total of 5 minutes per the Renard protocol achieving 71% of maximum predicted heart rate and workload of 7 METS. 7. Submaximal level of stress achieved. [id number] Ji MD Electronically signed on 09/07/2023 at 5:26:14 PM Final [facility] Work Phone: Cardiac stress study Procedu reOrdered By: Fatoumata Ji on 09-07-2023 [facility] Work Phone: STRESS TEST ONLYon 4 STRESS TEST ONLY [address], [place] [address] Exercise Stress Test Patient Name: CHEVY NEVES Ordering Provider: [id number] MAGED MORRELL Study Date: 09/07/2023 Reading Physician: Kimberly Ji MD MRN/PID: [id number] Supervising Physician: Kimberly Ji MD Fellow: Date of /Age: 10 1965 / 58 years Fellow: Gender: Vipul Nurse: Brian Angelo RN Admission Status: Mixing Tumbler Operator: SARAH Height: 190.50 cm Technologist: Weight: 180.08 kg Additional Staff: BSA: 2.94 m2 BMI: 49.62 kg/m2 Patient Location: Study Type: STRESS TEST ONLY Diagnosis/ICD: Hyperlipidemia unspecified-E78.5; Essential (primary) hypertension-I10; Shortness of breath-R06.02 Indication: Hypertension CPT Codes: Stress Test Interpretation-34813; Stress Test Supervision-[id number] Falls Risk: Low: Patient has low risk for sustaining a fall; environmental safety interventions in place. Study Details: Correct procedure and correct patient verified verbally. Patient Performance: The peak heart rate achieved was 114 bpm, which was 71 % of the age predicted target heart rate of 160 bpm. The resting blood pressure was 134/74 mmHg with a heart rate of 58 bpm. The standing blood pressure was 138/82 mmHg with a heart rate of 58 bpm. The patient's functional capacity was below average. The patient developed fatigue during the stress exam. The symptoms resolved with rest. The blood pressure response was normal. The test was terminated due to: fatigue. Sinus tachycardia. Double Product (HR x BP): 185. Baseline ECG: Normal sinus rhythm. Stress Stage Data: + +--- +------+-------+ HR Sys BP Ridley BP + +--- +------+-------+ Baseline Resting 58 134 74 + +--- +------+-------+ Baseline Standing 58 138 82 + +--- +------+-------+ Stage I 93 146 86 + +--- +------+-------+ Stage II 114 162 84 + +--- +------+-------+ Recovery ECG: The heart rate recovery was normal. + +---+---- --+-------+ HR Sys BP Ridley BP + +---+---- --+-------+ Recovery I 113 162 82 + +---+---- --+-------+ Recovery II 91 162 78 + +---+---- --+-------+ Recovery III 68 148 78 + +---+---- --+-------+ Recovery IV 68 138 68 + +---+---- --+-------+ Recovery V 60 132 76 + +---+---- --+-------+ Summary: 1. Submaximal graded exercise stress test without diagnostic ST-T changes for ischemia. 2. No provoked chest pain or arrhythmia. 3. Blunted heart rate response to exercise. 4. Poor cardiopulmonary conditioning. 5. Normal heart recovery phase. 6. Patient exercised for a total of 5 minutes per the Renard protocol achieving 71% of maximum predicted heart rate and workload of 7 METS. 7. Submaximal level of stress achieved. [id number] Fatoumata Ji MD Electronically signed on 09/07/2023 at 5:26:14 PM Final Normal [facility] ECG 12 [place] 08-26-2023 Sinus rhythm with PA Cs Cannot exclude old inferior infarct QTc 397 ms [facility] Work Phone: CT chest wo conon 08-01-2023 CT chest wo con [facility] [place] [address] CT Scan Report Signed Patient: Chevy Neves MR#: [id number] : 1965 Acct:[id number] Age/Sex: 58 / M ADM Date: 08/01/23 Loc: CT Room: Type: [facility] Attending Dr: Cheri Pringle DO Copies to: Cheri Pringle DO Ordering Provider: Cheri Pringle DO Date [...] Dodge Jr., D.O.08/01/2023 2:31 PM Dictation Location: [place] [address] Transcribed By: [facility] 08/01/23 1431 Dictated By: Markell Dodge Jr, DO 08/01/23 1134 Signed By: 08/01/23 14[address] [facility] [address] CARDIAC SCORING WO IV CON TRASTon 07-11-2023 CT CARDIAC SCORING WO IV CONTRAST Interpreted By: Brayden Cisneros, ADDENDUM: NON-CARDIOVASCULAR FINDINGS [...] STRUCTURES ARE THE SOLE RESPONSIBILITY OF THE INTERMODAL CUSTOMER SERVICE SUBMITTING THE ORIGINAL REPORT (NOT THIS ADDENDUM) Signed by: Brayden Cisneros 07/11/2023 11:41 AM -------- ORIGINAL REPORT -------- Dictation workstation: [id number] Interpreted By: Hesham Clark, STUDY: CT CARDIAC SCORING WO IV CONTRAST; 07/11/2023 10:30 am INDICATION: Signs/Symptoms:SCREENI NG. COMPARISON: None. ACCESSION NUMBER(S): [id number] ORDERING CLINICIAN: CHERI PRINGLE TECHNIQUE: Using prospective [...] al. JACC 2015 (http://dx.doi.org/10. 1016/j.j acc.2015.08.035) Reading Hatch Boss: Dr. Hehsam Clark, Date: 07/11/2023 11:22 am Signed by: Hesham Clark 07/11/2023 11:24 AM Dictation workstation: [id number] [facility] CT for calcium scoring WO co ntrast [...] STRUCTURES ARE THE SOLE RESPONSIBILITY OF THE INTERMODAL CUSTOMER SERVICE SUBMITTING THE ORIGINAL REPORT (NOT THIS ADDENDUM) Signed by: Brayden Cisneros 07/11/2023 11:41 AM -------- ORIGINAL REPORT -------- Dictation workstation: [id number] [facility] Work Phone: 1. Coronary artery calcium score [...] using link below [email or web address] x Jaci. JACC 2015 (http://dx.doi.org/10. 1016/j.j acc.2015.08.035) Reading Hatch Boss: Dr. Hesham Clark, Date: 07/11/2023 11:22 am Signed by: Hesham Clark 07/11/2023 11:24 AM Dictation workstation: [id number] Interpreted By: Hesham lCark, STUDY: CT CARDIAC SCORING WO IV CONTRAST; 07/11/2023 10:30 am INDICATION: Signs/Symptoms:SCREENI NG. COMPARISON: None. ACCESSION NUMBER(S): [id number] ORDERING CLINICIAN: CHERI PRINGLE TECHNIQUE: Using prospective [...] INDICATION: Signs/Symptoms:SCREENI NG. COMPARISON: None. ACCESSION NUMBER(S): [id number] ORDERING CLINICIAN: CHERI PRINGLE TECHNIQUE: Using prospective [...] >300 Moderate to severely increased >800 Alonzo goel al. JCCT 2016 (http://dx.doi.org/10. 1016/j.jcct.2016.11.00 3) JEFFERSON [...] al. JACC 2015 (http://dx.doi.org/10. 1016/j.j acc.2015.08.035) Reading Hatch Boss: Dr. Hesham Clark, Date: 07/11/2023 11:22 am Signed by: Hesham Clark 07/11/2023 11:24 AM Dictation workstation: [id number] [facility] Work Phone: Radiology Study observation (narrative) [facility] Work Phone: CT for calcium scoring WO co ntrast and CTA W contrast IV Heart and coronary arteriesOrdered By: Hesham Clark on 07-11-2023 [facility] Work Phone: Ambulatory Visit Summaryon 1 08-27-2022 Ambulatory Visit Summary CHEVY NEVES :1965 Visit Date:06/27/2023 Ambulatory Visit Instructions Your Diagnosis BPH with urinary obstruction Prostatitis Family history of prostate cancer in father Family history of kidney cancer Tests Performed Urnls Dip Stick Auto w/o Microscopy POC 97294 Your Care Team Attending Physician - SCOTT VINSON, Mikel Wagner Primary Care Physician - Cheri Pringle DO [...] VINSON, Mikel Wagner Where: [facility] Patient Educationon 06-27-20 Patient Education Urology Benign Prostatic Hyperplasia Benign [...] Follow these instructions at home: ? Take bfhy-qeb-nzwgprv and prescription medicines only as told by [...] the medicine (more content not included)... Normal [facility] Urology Office/Clinic Noteon 06-27-2023 Urology Office/Clinic Note [...] When Contact Information SCOTT VINSON, Mikel Wagner, URL In 4 months [facility] [address], [place] [address]- Additional Instructions: Patient Education Benign Prostatic Hyperplasia I, Nasreen Wilson , personally scribed for Dr. Chavez on 06/27/2023 14:39:06. . Documentation recorded by the scribe, Nasreen iWlson, accurately reflects the services(s) I performed and [...] oral capsule duta (more content not included)... Normal [facility] Comment on above: Result Comment: Elec tronically Signed By: Mkiel CHAVEZ MD\.br\Date and Time Signed: 06/27/23 14:40 EST\.br\Electronically Co-Signed By: Nasreen Wilson.br\Date and Time Co-Signed: 06/27/23 14:39 EST Pre-Certification Formon Pre-Certification Form [id number]#1.0 0CD:127 [facility] Ambulatory Visit Summaryon 0 03-07-2023 Ambulatory Visit Summary CHEVY NEVES :1965 Visit Date:03/07/2023 Ambulatory Visit Instructions Your Diagnosis BPH with urinary obstruction Prostatitis Family history of prostate cancer in father Family history of kidney cancer Tests Performed Urnls Dip Stick Auto w/o Microscopy POC 83525 Your Care Team Attending Physician - Mikel CHAVEZ MD Primary Care Physician - Cheri Pringle [...] Appointments Tuesday 3:00 PM EDT With: Mikel CHAVEZ MD Where: [facility] Patient Educationon 03-07-20 23 Patient Education Urology Benign Prostatic Hyperplasia [...] Follow these instructions at home: ? Take xsud-gpl-xpmzzdk and prescription medicines only as told by [...] the medicine (more content not included)... Normal [facility] Urology Office/Clinic Noteon 03-07-2023 Urology Office/Clinic Note [...] and history for this patient from Dr. Chavez. I have reviewed and verified the staff [...] When Contact Information SCOTT VINSON, Mikel Wagner, URL [facility] [address] [place] [address] [phone] Additional Instructions: 3 mos (new med) Patient Education Benign Prostatic Hyperplasia I, Anali Banuelos, personally scribed for Dr. Chavez on 03/07/2023 15:18:19. . Documentation recorded by the scribe, Anali Banuelos, accurately reflects the services(s) I performed and decisions made by me. Authenticated by Dr. Chavez on 03/07/2023 15:20:21. Problem List/Past Medical History [...] Tab, Oral, Da (more content not included)... [facility] Comment on above: Result Comment: Elec tronically Signed By: Mikel CHAVEZ MD\.br\Date and Time Signed: 03/07/23 15:20 EDT\.br\Electronically Co-Signed By: Anali Banuelos\.br\Date and Time Co-Signed: 03/07/23 15:18 EDT Lab Reportson 02-28-2023 Lab Reports [id number]#1.0 0CD:127 [facility] Tobacco Screening.on 023 Adult depression screening assessment No [email or web address] 250 DO Work Phone: Fall risk assessment c) Not medically indicated [facility] [email or web address] 250 DO Work Phone: Tobacco use status CPHS b) No M [facility] [email or web address] 250 DO Work Phone: Consultation Noteon 01-14-20 Consultation Note [id number]#1. 00CD:127 [facility] Lab Reportson 01-13-2023 Lab Reports [id number] 0CD:127 [facility] Screenson 01-11-2023 Screens [id number]. 00CD:127 [facility] Ambulatory Visit Summaryon 0 01-10-2023 Ambulatory Visit Summary CHEVY NEVES :1965 Visit Date:01/10/2023 Ambulatory Visit Instructions Your Diagnosis Prostatitis BPH with urinary obstruction Family history of prostate cancer in father Family history of kidney cancer Tests Performed Urnls Dip Stick Auto w/o Microscopy POC 31816 Your Care Team Attending Physician - Mikel CHAVEZ MD Primary Care Physician - Cheri Pringle [...] Schedule the Following Appointments Follow Up with SCOTT VINSON, YVONNE Kraft When: Where: [facility] [address], [place] [address]- Medications What How Much When Instructions Unchanged [...] or concerns Unchanged omega-3 polyunsaturated fatty acids (Farm[employer] Bounty Red Krill Oil) Every day Contact prescribing physician if questions or concerns Unchanged psyllium (Metamucil) Contact prescribing physician if questions or concerns Test Results Urnls Dip Stick Auto w/o Microscopy POC 70338 (01/10/2023) Bilirubin Urine Dipstick - Negative Blood Urine Dipstick - Trace-intact Glucose Urine Dipstick - Negative Ketones Urine Dipstick - Negative Leukocytes Urine Dipstick - Trace Nitrite Urine Dipstick - Negative Protein Urine Dipstick - Trace Specific [place] Urine Dipstick - 1.020 Urine Appearance Urine [...] of prostatitis (more content not included)... Normal [facility] Patient Educationon 01-11-20 Patient Education Infectious Disease [...] these instructions at home: Medicines ? Take pfmv-zcs-novneqj and prescription medicines only as told by [...] Where to find more information ? National [place] of Diabetes and Digestive and Kidney Diseases: (more content not included)... Normal [facility] Automated erythrocytes count in urine sediment (number/area)Ordered By: Cheri Pringle on 12-13-2022 RBC Auto (Urine sed) [#/Area] 5-9 [HPF] 0-4 [facility] Automated leukocytes count i n urine sediment (number/area)Ordered By: Cheri Pringle on 12-13-2022 WBC Auto (Urine sed) [#/Area] 0-1 [HPF] 0-4 [facility] Automated urine color determ inationOrdered By: Cheri Pringle on 12-13-2022 Color (U) Yellow Normal Yellow [facility] Comment on above: Order Comment: Name Collection Type:: Collection Method Unknown Performed By: #### C UU, ADDONUAPLUS #### [facility] [address] [place] [address] Automated urine sediment karen cium oxalate crystal count by microscopy (number/high powOrdered By: Cheri Pringle on 12-13-2022 Calcium oxalate crystals LM.HPF (Urine sed) [#/Area] 4+ [HPF] [facility] Bilirubin Test strip Ql (U)O rdered By: Cheri Pringle on 12-13-2022 Bilirubin Ql (U) Negative Negative [facility] Dipstick & Microscopicon Dipstick & Microscopic [employer] Other Dipstick and Microscopicon 0 12-13-2022 Appearance (U) Clear Normal Clear [facility] Comment on above: Order Comment: Name Collection Type:: Collection Method Unknown Performed By: #### C UU, ADDONUAPLUS #### [facility] [address] [place] [address] [place] Bacteria,Urine None Seen Normal None Seen [facility] Comment on above: Order Comment: Name Collection Type:: Collection Method Unknown Performed By: #### C UU, ADDONUAPLUS #### [facility] [address] [place] [id number] [place] Bilirubin,Urine Negative Normal Negative [facility] Comment on above: Order Comment: Name Collection Type:: Collection Method Unknown Performed By: #### C UU, ADDONUAPLUS #### [facility] [address] [place] [address] [place] Calcium Oxalate Crystals,Urine 4+ Normal [facility] Comment on above: Order Comment: Name Collection Type:: Collection Method Unknown Performed By: #### C UU, ADDONUAPLUS #### [facility] [address] [place] [address] [place] Glucose Ql (U) Normal Normal Normal [facility] Comment on above: Order Comment: Name Collection Type:: Collection Method Unknown Performed By: #### C UU, ADDONUAPLUS #### [place] [address] [place] Hyaline Casts,Urine 0-8 Normal 0-8 [facility] Comment on above: Order Comment: Name Collection Type:: Collection Method Unknown Result Comment: PERF ORMED BY: [place] [address] PATHOLOGIST OIL WELL PUMPER YOSEF MCKEON M.D. Performed By: #### C UU, ADDONUAPLUS #### [facility] [address] [place] [address] Ketones Ql (U) Trace High Negative [facility] Comment on above: Order Comment: Name Collection Type:: Collection Method Unknown Performed By: #### C UU, ADDONUAPLUS #### [facility] [address] [place] [address] Leukocyte esterase Test strip Ql (U) Negative Normal Negative [facility] Comment on above: Order Comment: Name Collection Type:: Collection Method Unknown Performed By: #### C UU, ADDONUAPLUS #### [facility] [address] [place] [address] [place] Nitrite,Urine Negative Normal Negative [facility] Comment on above: Order Comment: Name Collection Type:: Collection Method Unknown Performed By: #### C UU, ADDONUAPLUS #### [facility] [address] [place] [address] [place] Occult Blood,Urine Negative Normal Negative [facility] Comment on above: Order Comment: Name Collection Type:: Collection Method Unknown Performed By: #### C UU, ADDONUAPLUS #### [address] Othe Crystals,Urine None Seen Normal [facility] Comment on above: Order Comment: Name Collection Type:: Collection Method Unknown Performed By: #### C UU, ADDONUAPLUS #### [address] Protein,Urine Negative Normal Negative [facility] Comment on above: Order Comment: Name Collection Type:: Collection Method Unknown Performed By: #### C UU, ADDONUAPLUS #### [address] RBC,Urine 5-9 High 0-4 [facility] Comment on above: Order Comment: Name Collection Type:: Collection Method Unknown Performed By: #### C UU, ADDONUAPLUS #### [address] Specificy [place],Urine 1.024 Normal 1.001-1.030 [facility] Comment on above: Order Comment: Name Collection Type:: Collection Method Unknown Performed By: #### C UU, ADDONUAPLUS #### [address] Squamous Epithelial Cell,Urine 1-2 Normal 0-2 [facility] Comment on above: Order Comment: Name Collection Type:: Collection Method Unknown Performed By: #### C UU, ADDONUAPLUS #### [address] Urobilinogen,Urine Normal Normal Normal [facility] Comment on above: Order Comment: Name Collection Type:: Collection Method Unknown Performed By: #### C UU, ADDONUAPLUS #### [place] [address] [place] WBC LM.HPF (Urine sed) [#/Area] 0 /[HPF] Normal 0-4 [facility] Comment on above: Order Comment: Name Collection Type:: Collection Method Unknown Performed By: #### C UU, ADDONUAPLUS #### [address] [place] [address] [place] Ketones Auto test strip (U) [Mass/Vol]Ordered By: Cheri Pringle on 12-13-2022 Ketones (U) [Mass/Vol] Trace Negative Fi [facility] Laboratory - UrinalysisOrder ed By: Cheri Pringle on 12-13-2022 Hyaline casts LM Ql (Urine sed) 0-8 [LPF] 0-8 [facility] Nitrite Test strip Ql (U)Ord ered By: Cheri Pringle on 12-13-2022 Nitrite Ql (U) Negative Negative [facility] Protein Auto test strip (U) [Mass/Vol]Ordered By: Cheri Pringle on 12-13-2022 Protein (U) [Mass/Vol] Negative Negative [facility] Specific gravity Auto test s trip (U) [Rel density]Ordered By: Cheri Pringle on 12-13-2022 Specific gravity (U) [Rel density] 1.024 1.001-1.030 [facility] Squamous epithelial cells de tection in urine sediment by light microscopyOrdered By: Cheri Pringle on 12-13-2022 Epithelial cells.squamous LM Ql (Urine sed) 1-2 [HPF] 0-2 [facility] Urine Cultureon 12-13-2022 Bacteria identified Cx Nom (U) No Growth 2 Days PERFORMED BY: [place] [address] PATHOLOGIST OIL WELL PUMPER YOSEF MCKEON M.D. Normal [facility] Comment on above: Performed By: #### C UU, ADDONUAPLUS #### [facility] [address] [place] [address] Bacteria identified Cx Nom (U) [employer] Other Urine bacteria detection by automated methodOrdered By: Cheri Pringle on 12-13-2022 Bacteria Auto Ql (U) None seen None Seen [facility] Urine clarity by refractomet ry automatedOrdered By: Cheri Pringle on 12-13-2022 Clarity Refractometry automated (U) Clear Clear [facility] Urine glucose measurement by automated test strip (mass/volume)Ordered By: Cheri Pringle on 12-13-2022 Glucose Auto test strip (U) [Mass/Vol] Normal mg/dL Normal [facility] Urine hemoglobin detection b y automated test stripOrdered By: Cheri Pringle on 12-13-2022 Hemoglobin Auto test strip Ql (U) Negative Negative [facility] Urine leukocyte esterase det ection by automated test stripOrdered By: Cheri Pringle on 12-13-2022 Leukocyte esterase Auto test strip Ql (U) Negative Negative [facility] Urine pH measurement by auto mated test stripOrdered By: Cheri Pringle on 12-13-2022 pH (U) 6.5 [pH] Normal 5.0-9.0 [facility] Comment on above: Order Comment: Name Collection Type:: Collection Method Unknown Performed By: #### C UU, ADDONUAPLUS #### [address] Urine sediment crystal ident ification by light microscopyOrdered By: Cheri Pringle on 12-13-2022 Crystals LM Nom (Urine sed) None seen [HPF] [facility] Urobilinogen Auto test strip (U) [Mass/Vol]Ordered By: Cheri Pringle on 12-13-2022 Urobilinogen (U) [Mass/Vol] Normal mg/dL Normal [facility] Automated erythrocytes count in urine sediment (number/area)Ordered By: Cheri Pringle on 11-29-2022 RBC Auto (Urine sed) [#/Area] 3-4 [HPF] 0-4 [facility] Automated leukocytes count i n urine sediment (number/area)Ordered By: Cheri Pringle on 11-29-2022 WBC Auto (Urine sed) [#/Area] 10-19 [HPF] 0-4 [facility] Bilirubin Test strip Ql (U)O rdered By: Cheri Pringle on 11-29-2022 Bilirubin Ql (U) Negative Negative [facility] Color Auto (U)Ordered By: Xander Pringle on 11-29-2022 Color (U) Yellow Yellow [facility] Dipstick and Microscopicon 0 11-29-2022 Appearance (U) Clear Normal Clear [facility] Comment on above: Order Comment: Name Collection Type:: Collection Method Unknown Performed By: #### A DDONUAPLUS, CUU #### [facility] [address] [place] [address] [place] Bacteria,Urine None Seen Normal None Seen [facility] Comment on above: Order Comment: Name Collection Type:: Collection Method Unknown Performed By: #### A DDONUAPLUS, CUU #### [facility] [address] [place] [address] [place] Bilirubin,Urine Negative Normal Negative [facility] Comment on above: Order Comment: Name Collection Type:: Collection Method Unknown Performed By: #### A DDONUAPLUS, CUU #### [facility] [address] [place] [address] [place] Color (U) Yellow Normal Yellow [facility] Comment on above: Order Comment: Name Collection Type:: Collection Method Unknown Performed By: #### A DDONUAPLUS, CUU #### [facility] [address] [place] [address] Glucose Ql (U) Normal Normal Normal [facility] Comment on above: Order Comment: Name Collection Type:: Collection Method Unknown Performed By: #### A DDONUAPLUS, CUU #### [facility] [address] [place] [address] [place] Hyaline Casts,Urine 0-8 Normal 0-8 [facility] Comment on above: Order Comment: Name Collection Type:: Collection Method Unknown Performed By: #### A DDONUAPLUS, CUU #### [facility] [address] [place] [address] [place] Ketones Ql (U) Negative Normal Negative [facility] Comment on above: Order Comment: Name Collection Type:: Collection Method Unknown Performed By: #### A DDONUAPLUS, CUU #### [facility] [address] [place] [address] [place] Leukocyte esterase Test strip Ql (U) 2+ High Negative [facility] Comment on above: Order Comment: Name Collection Type:: Collection Method Unknown Performed By: #### A DDONUAPLUS, CUU #### [facility] [address] [place] [address] [place] Nitrite,Urine Negative Normal Negative [facility] Comment on above: Order Comment: Name Collection Type:: Collection Method Unknown Performed By: #### A DDONUAPLUS, CUU #### [address] Occult Blood,Urine Negative Normal Negative [facility] Comment on above: Order Comment: Name Collection Type:: Collection Method Unknown Performed By: #### A DDONUAPLUS, CUU #### [address] pH (U) 5.5 [pH] Normal 5.0-9.0 [facility] Comment on above: Order Comment: Name Collection Type:: Collection Method Unknown Performed By: #### A DDONUAPLUS, CUU #### [address] Protein (U) [Mass/Vol] 30 mg/dL High Negative [facility] Comment on above: Order Comment: Name Collection Type:: Collection Method Unknown Performed By: #### A DDONUAPLUS, CUU #### [address] RBC,Urine 3-4 Normal 0-4 [facility] Comment on above: Order Comment: Name Collection Type:: Collection Method Unknown Performed By: #### A DDONUAPLUS, CUU #### [address] Specificy [place],Urine 1.028 Normal 1.001-1.030 [facility] Comment on above: Order Comment: Name Collection Type:: Collection Method Unknown Performed By: #### A DDONUAPLUS, CUU #### [address] Sperm,Urine 1-2 Normal 0-2 [facility] Comment on above: Order Comment: Name Collection Type:: Collection Method Unknown Result Comment: PERF ORMED BY: [place] [address] PATHOLOGIST OIL WELL PUMPER YOSEF MCKEON M.D. Performed By: #### A DDONUAPLUS, CUU #### [address] Squamous Epithelial Cell,Urine 1-2 Normal 0-2 [facility] Comment on above: Order Comment: Name Collection Type:: Collection Method Unknown Performed By: #### A DDONUAPLUS, CUU #### [facility] [address] Urobilinogen,Urine Normal Normal Normal [facility] Comment on above: Order Comment: Name Collection Type:: Collection Method Unknown Performed By: #### A DDONUAPLUS, CUU #### [facility] [address] WBC,Urine 10-19 High 0-4 [facility] Comment on above: Order Comment: Name Collection Type:: Collection Method Unknown Performed By: #### A DDONUAPLUS, CUU #### [address] Ketones Auto test strip (U) [Mass/Vol]Ordered By: Cheri Pringle on 11-29-2022 Ketones (U) [Mass/Vol] Negative Negative [facility] - UrinalysisOrder ed By: Cheri Pringle on 11-29-2022 Hyaline casts LM Ql (Urine sed) 0-8 [LPF] 0-8 [facility] Nitrite Test strip Ql (U)Ord ered By: Cheri Pringle on 11-29-2022 Nitrite Ql (U) Negative Negative [facility] Protein Auto test strip (U) [Mass/Vol]Ordered By: Cheri Pringle on 11-29-2022 Protein (U) [Mass/Vol] 30 mg/dL Negative [facility] Specific gravity Auto test s trip (U) [Rel density]Ordered By: Cheri Pringle on 11-29-2022 Specific gravity (U) [Rel density] 1.028 1.001-1.030 [facility] Spermatozoa detection in uri ne sediment by light microscopyOrdered By: Cheri Pringle on 11-29-2022 Spermatozoa LM Ql (Urine sed) 1-2 [HPF] 0-2 [facility] Squamous epithelial cells de tection in urine sediment by light microscopyOrdered By: Cheri Pringle on 11-29-2022 Epithelial cells.squamous LM Ql (Urine sed) 1-2 [HPF] 0-2 [facility] Urine Cultureon 11-29-2022 Bacteria identified Cx Nom (U) ORGANISM: Escherichia coli (O:ESCCOL) [place] Count 30,000 Aerobic PHILIPPE Charge (NMIC56) --- [...] RESISTANT TO ALL B-LACTAM DRUGS. PERFORMED BY: [place] [address] PATHOLOGIST OIL WELL PUMPER YOSEF MCKEON M.D. Normal [facility] Comment on above: Performed By: #### A LUCERO HANNON #### [address] Urine bacteria detection by automated methodOrdered By: Cheri Pringle on 11-29-2022 Bacteria Auto Ql (U) None seen None Seen [facility] Urine clarity by refractomet ry automatedOrdered By: Cheri Pringle on 11-29-2022 Clarity Refractometry automated (U) Clear Clear [facility] Urine culture routineOrdered By: Cheri Pringle on 11-29-2022 Bacteria identified Cx Nom (U) Escherichia coli [facility] Urine glucose measurement by automated test strip (mass/volume)Ordered By: Cheri Pringle on 11-29-2022 Glucose Auto test strip (U) [Mass/Vol] Normal mg/dL Normal [facility] Urine hemoglobin detection b y automated test stripOrdered By: Cheri Pringle on 11-29-2022 Hemoglobin Auto test strip Ql (U) Negative Negative [facility] Urine leukocyte esterase det ection by automated test stripOrdered By: Cheri Pringle on 11-29-2022 Leukocyte esterase Auto test strip Ql (U) 2+ Negative [facility] Urobilinogen Auto test strip (U) [Mass/Vol]Ordered By: Cheri Pringle on 11-29-2022 Urobilinogen (U) [Mass/Vol] Normal mg/dL Normal [facility] pH Auto test strip (U)Ordere d By: Cheri Pringle on 11-29-2022 pH (U) 5.5 [pH] 5.0-9.0 [facility] Office Visit (Cardiology)on 07-02-2022 Follow-up visit [...] up in 6 months Chief Complaint AFTAB NEVES is being seen for a 6 month [...] (Gastroenterology) History of Leg surgery History of [place] tooth extraction Current Meds Medication NameInstruction Aspirin EC 81 MG Oral Tablet Delayed ReleaseTAKE 1 TABLET DAILY. Dofetilide 250 MCG Oral CapsuleTAKE 1 CAPSULE Every twelve hours EPINEPHrine 0.3 MG/0.3ML Injection Solution Auto-injectorinject 0.3 milliliters intramuscularly in OUTER THIGH and HOLD fo... (REFER TO PRESCRIPTION NOTES). Krill Oil 1000 MG Oral CapsuleTAKE 1 CAPSULE Daily Magnesium 250 MG Oral TabletTake 1 tablet twice daily Metamucil Oral [place] directed Olmesartan Medoxomil 20 MG Oral TabletTAKE 1 TABLET DAILY. Vitamin C 1000 MG Oral TabletTAKE 1 TABLET DAILY. Vitamin D3 50 MCG (1999 [place]) Oral [...] Vital Signs Recorded: 02Jul2022 03:16PMRecorded: 02Jul2022 02:57PM Ygkcayxr122, LUE, Vnxweba042, LUE, Sitting Kwfekthcx00, LUE, Nlzueer34, LUE, Sitting Heart Rate72, Apical Height6 ft 4 in Ucsnfe336 lb BMI Humabndmew78.81 kg/m2 BSA Calculated2.98 Tobacco Useb) No EKG [...] Jul 02 2022 4:40PM EST (Author) Normal [employer] Tobacco Screening.on 022 Tobacco use status [facility] b) No M [facility] 250 DO Work Phone: Automated erythrocytes count in urine sediment (number/area)Ordered By: Cheri Pringle on 06-15-2022 RBC Auto (Urine sed) [#/Area] 3-4 [HPF] 0-4 [facility] Automated leukocytes count i n urine sediment (number/area)Ordered By: Cheri Pringle on 06-15-2022 WBC Auto (Urine sed) [#/Area] 3-4 [HPF] 0-4 [facility] Bilirubin Test strip Ql (U)O rdered By: Cheri Pringle on 06-15-2022 Bilirubin Ql (U) Negative Negative [facility] Color Auto (U)Ordered By: Xander Pringle on 06-15-2022 Color (U) Yellow Yellow [facility] Ketones Auto test strip (U) [Mass/Vol]Ordered By: Cheri Pringle on 06-15-2022 Ketones (U) [Mass/Vol] Negative Negative [facility] - UrinalysisOrder ed By: Cheri Pringle on 06-15-2022 Hyaline casts LM Ql (Urine sed) 0-8 [LPF] 0-8 [facility] Nitrite Test strip Ql (U)Ord ered By: Cheri Pringle on 06-15-2022 Nitrite Ql (U) Negative Negative [facility] Protein Auto test strip (U) [Mass/Vol]Ordered By: Cheri Pringle on 06-15-2022 Protein (U) [Mass/Vol] Negative Negative [facility] Specific gravity Auto test s trip (U) [Rel density]Ordered By: Cheri Pringle on 06-15-2022 Specific gravity (U) [Rel density] 1.026 1.001-1.030 [facility] Squamous epithelial cells de tection in urine sediment by light microscopyOrdered By: Cheri Pringle on 06-15-2022 Epithelial cells.squamous LM Ql (Urine sed) 0-1 [HPF] 0-2 [facility] Urine bacteria detection by automated methodOrdered By: Cheri Pringle on 06-15-2022 Bacteria Auto Ql (U) None seen None Seen [facility] Urine clarity by refractomet ry automatedOrdered By: Cheri Pringle on 06-15-2022 Clarity Refractometry automated (U) Clear Clear [facility] Urine glucose measurement by automated test strip (mass/volume)Ordered By: Cheri Pringle on 06-15-2022 Glucose Auto test strip (U) [Mass/Vol] Normal mg/dL Normal [facility] Urine hemoglobin detection b y automated test stripOrdered By: Cheri Pringle on 06-15-2022 Hemoglobin Auto test strip Ql (U) Negative Negative [facility] Urine leukocyte esterase det ection by automated test stripOrdered By: Cheri Pringle on 06-15-2022 Leukocyte esterase Auto test strip Ql (U) 1+ Negative [facility] Urobilinogen Auto test strip (U) [Mass/Vol]Ordered By: Cheri Pringle on 06-15-2022 Urobilinogen (U) [Mass/Vol] Normal mg/dL Normal [facility] pH Auto test strip (U)Ordere d By: Cheri Pringle on 06-15-2022 pH (U) 5.5 [pH] 5.0-9.0 [facility] Urine culture routineOrdered By: Cheri Pringle on 06-04-2022 Bacteria identified Cx Nom (U) Escherichia coli [facility] Automated erythrocytes count in urine sediment (number/area)Ordered By: Cheri Pringle on 06-01-2022 RBC Auto (Urine sed) [#/Area] 5-9 [HPF] 0-4 [facility] Automated leukocytes count i n urine sediment (number/area)Ordered By: Cheri Pringle on 06-01-2022 WBC Auto (Urine sed) [#/Area] 20-49 [HPF] 0-4 [facility] Bilirubin Test strip Ql (U)O rdered By: Cheri Pringle on 06-01-2022 Bilirubin Ql (U) Negative Negative [facility] Color Auto (U)Ordered By: Xander Pringle on 06-01-2022 Color (U) Yellow Yellow [facility] Dipstick & Microscopicon Dipstick & Microscopic No [facility] [employer] Other Ketones Auto test strip (U) [Mass/Vol]Ordered By: Cheri Pringle on 06-01-2022 Ketones (U) [Mass/Vol] Negative Negative [facility] - UrinalysisOrder ed By: Cheri Pringle on 06-01-2022 Hyaline casts LM Ql (Urine sed) 9-19 [LPF] 0-8 [facility] Nitrite Test strip Ql (U)Ord ered By: Cheri Pringle on 06-01-2022 Nitrite Ql (U) Positive Negative [facility] Protein Auto test strip (U) [Mass/Vol]Ordered By: Cheri Pringle on 06-01-2022 Protein (U) [Mass/Vol] Trace mg/dL Negative [facility] Specific gravity Auto test s trip (U) [Rel density]Ordered By: Cheri Pringle on 06-01-2022 Specific gravity (U) [Rel density] 1.021 1.001-1.030 [facility] Squamous epithelial cells de tection in urine sediment by light microscopyOrdered By: Cheri Pringle on 06-01-2022 Epithelial cells.squamous LM Ql (Urine sed) 1-2 [HPF] 0-2 [facility] Urine 10 SGon 06-01-2022 Albumin DL <= 20 mg/L (U) [Mass/Vol] TRACE [employer] Other Albumin DL <= 20 mg/L (U) [Mass/Vol] LARGE [employer] Other Urine 10 SG Negative [employer] Other Urine 10 SG 1.005 [employer] Other Urine 10 SG LARGE [employer] Other Urine 10 SG 0.2 [employer] Other Urine 10 SG Positive [employer] Other Urine Cultureon 06-01-2022 Urine Culture >100,000 [employer] Other Urine Culture <16 Susceptible [employer] Other Urine Culture <8 Susceptible [employer] Other Urine Culture <4 Susceptible [employer] Other Urine Culture <2 Susceptible [employer] Other Urine Culture <1 Susceptible [employer] Other Urine Culture <0.5 Susceptible [employer] Other Urine Culture <32 Susceptible [employer] Other Urine Culture <2/38 Susceptible [employer] Other Urine bacteria detection by automated methodOrdered By: Cheri Pringle on 06-01-2022 Bacteria Auto Ql (U) 4+ None Seen [facility] Urine clarity by refractomet ry automatedOrdered By: Cheri Pringle on 06-01-2022 Clarity Refractometry automated (U) Cloudy Clear [facility] Urine glucose measurement by automated test strip (mass/volume)Ordered By: Cheri Pringle on 06-01-2022 Glucose Auto test strip (U) [Mass/Vol] Normal mg/dL Normal [facility] Urine hemoglobin detection b y automated test stripOrdered By: Cheri Pringle on 06-01-2022 Hemoglobin Auto test strip Ql (U) 3+ Negative [facility] Urine leukocyte esterase det ection by automated test stripOrdered By: Cheri Pringle on 06-01-2022 Leukocyte esterase Auto test strip Ql (U) 4+ Negative [facility] Urine pH measurement by auto mated test stripOrdered By: Cheri Pringle on 06-01-2022 pH (U) 6.0 [pH] 5.0-9.0 [facility] Urobilinogen Auto test strip (U) [Mass/Vol]Ordered By: Cheri Pringle on 06-01-2022 Urobilinogen (U) [Mass/Vol] Normal mg/dL Normal [facility] Office Visit (Cardiology)on 12-09-2021 Follow-up visit [...] Weight Tips; Status:Complete - Retrospective Authorization; Done: 09Dec2021 Some eating tips that can help you lose weight.; Status:Complete - Retrospective Authorization; Done: 09Dec2021 PAC (premature atrial contraction), Paroxysmal atrial fibrillation Renew: Aspirin EC 81 MG Oral Tablet Delayed Release; TAKE 1 TABLET DAILY Paroxysmal atrial fibrillation IO EKG Electrocardiogram- 12 Lead; Status:Complete; Done: 09Dec2021 SocHx: Never a smoker Tobacco Use Screening; Status:Complete; Done: 09Dec2021 Unlinked Stop: Olmesartan Medoxomil 40 MG Oral Tablet Patient Instructions By signing my name below, I, Josiane Bernardo Pinto LPN, attest that this documentation has been prepared [...] 6 -9 ] months Chief Complaint AFTAB NEVES is being seen for follow-up of a [...] (Gastroenterology) History of Leg surgery History of [place] tooth extraction Current Meds Medication NameInstruction Aspirin [...] Signs Recorded: 09Dec2021 01:33PM Heart Rate56, Apical Lbiqgdtk538, LUE, Sitting Cghjnztfn78, LUE, Sitting Height6 ft 4 in Omrdjh502 lb BMI Tbywgdoptk70.2 kg/m2 BSA Calculated2.96 Tobacco Useb) No PHQ-2 [...] Dec 09 2021 5:44PM EST (Author) Normal [employer] Tobacco Screening.on 022 Adult depression screening assessment No [facility] 250 DO Work Phone: Fall risk assessment a) No falls within the last year [email or web address] 250 DO Work Phone: Tobacco use status [facility] b) No M [facility] 250 DO Work Phone: Office Visit (Cardiology)on 10-02-2021 Follow-up visit Diagnoses/Problems Assessed Atrial fibrillation (427.31) (I48.91) Hypertension, benign (401.1) (I10) Never a smoker Morbid obesity with BMI of 45.0-49.9, adult (278.01,V85.42) (E66.01,Z68.42) Orders Atrial fibrillation IO EKG Electrocardiogram- 12 Lead; Status:Complete; Done: [id number] Morbid obesity with BMI of 45.0-49.9, adult Healthy Weight Tips; Status:Complete - Retrospective Authorization; Done: 02Oct2021 SocHx: Never a smoker Tobacco Use Screening; Status:Complete; Done: [id number] Patient Instructions Please bring all medicines, vitamins, [...] up in 3-4 weeks Chief Complaint AFTAB NEVES is being seen for a 1 week [...] (Gastroenterology) History of Leg surgery History of [place] tooth extraction Current Meds Medication NameInstruction Eliquis 5 MG Oral TabletTake 1 tablet twice daily Magnesium 250 MG Oral TabletTake 1 tablet twice daily Sotalol HCl - 120 MG Oral TabletTAKE 0.5 TABLET Twice daily Vitamin C 1000 MG Oral TabletTAKE 1 TABLET DAILY. Vitamin D (Cholecalciferol) 50 MCG (1999) Oral CapsuleTAKE 1 CAPSULE Daily Vitamin D3 50 MCG (1999) Oral TabletTAKE [...] negative for complaint. Vitals Vital Signs Recorded: [id number] 12:41PM Heart Rate48, Apical Hevwphcj466, LUE, Sitting Vovvtewly02, LUE, Sitting Height6 ft 4 in Rtkdym448 lb BMI Hgkfsupadu27.45 kg/m2 BSA Calculated2.97 Tobacco Useb) No PHQ-2 [...] and or (more content not included)... Normal [employer] Tobacco Screening.on 022 Adult depression screening assessment No [facility] 250 DO Work Phone: Fall risk assessment c) Not medically indicated [facility] 250 DO Work Phone: Tobacco use status [facility] b) No M [facility] 250 DO Work Phone: Office Visit (Cardiology)on [...] life. Chief Complaint I am tired AFTAB NEVES is being seen for follow-up of a hospitalization for atrial fibrillation. He is ambulatory with steady gait, accompanied by . July 2021: Patient was recently hospitalized at [facility]. The patient was seen in Cardiology consult with subsequent cardiovascular management by [facility]. Hospitalization records have been reviewed. Reason for Cardiology Consultation: afib Consulting Hatch Boss: Dr. Morrell Cardiovascular testing: echo Changes to [...] denies medicatio (more content not included)... Normal [employer] Tobacco Screening.on 022 Tobacco use status [facility] b) No M [facility] [email or web address] 250 DO Work Phone: Cardiovasc Arrhythmia Result son 08-10-2021 Cardiovasc Arrhythmia Results Reason For Visit Reason for Visit: Holter Monitor: AFTAB is here for the application of a 48 hour Holter monitor. Ordering Physician: Carmen Doe NP Diagnosis: afiv rvr [facility] equipment agreement signed. AFTAB understands monitor is to be returned on: 08/12/2021 Monitor number [id number] applied. Holter monitor printed and placed on [facility] desk to dictate. Patient Discussion/Summary Patient underwent [...] complaints. Future Appointments Date/TimeProviderSpeci altySite 09/02/2021 08:00 Torrie Simón Carmen [facility]-XGXYsxiaagccs461 [address] Michele 250 DO Signatures Electronically signed by : Fatoumata Ji MD; Aug 10 2021 4:03PM EST Electronically signed by : Maged Morrell MD; Aug 23 2021 3:41PM EST (Author) [facility] (CVDTB)on 07-22 EUA Statement SEE BELOW Normal [facility] Comment on above: Result Comment: This test is not yet approved or cleared by the [place] FDA. When there are no FDA-approved or cleared tests available, and other criteria are met, FDA can make tests available under an emergency access mechanism called an Emergency Use Authorization (EUA). The EUA for this test is supported by the [place] of Health and Human Service?s (HHS?s) declaration [...] consistent with SARS-CoV-2. Performed By: #### C VDTB #### [facility] [address] [place] [address] Nathaniel Blackwell SARS-CoV-2 (COVID-19) RNA MELVA+probe Ql (Unsp spec) Not detected Normal NOT DETECTED [facility] Comment on above: Result Comment: This test is not yet approved or cleared by the [place] FDA. When there are no FDA-approved or cleared tests available, and other criteria are met, FDA can make tests available under an emergency access mechanism called an Emergency Use Authorization (EUA). The EUA for this test is supported by the [place] of Health and Human Service's (HHS's) declaration [...] longer be used). Performed By: #### C [facility] #### [facility] [address] [address] Nathaniel HOPSONon 06-11-2019 PROGRESS HNO ID: [id number] Author: Bandar Conti Service: ? Author Type: Physician Type: Progress Notes Filed: 06/11/2019 8:40 AM Note Text: The patient was accompanied to the office by his spouse. 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 He was on [...] time a reevaluation will be performed. Normal [facility] CNOVon 06-08-2019 CNOV Office Visit (ORTHMN ) CHEVY NEVES ([id number]) 1965 M Date Time Provider Department 06/08/19 1:30 PM BANDAR CONTI During your visit today, we recorded the following information about you: Weight Height 181.4 kg 1.905 m Bandar Conti MD 06/11/2019 8:40 AM Signed The patient was accompanied to the office by his spouse. 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 He was on [...] Diagnosis:Rupture of right quadriceps muscle, subsequent encounter [S76.111D] Other Visit Diagnosis:Obesity, Class III, BMI 40-49.9 (morbid obesity) ([facility]) [E66.01] Prescriptions as of 06/08/2019 Sig: [...] [E66.01] INVALID FOR* Encounter Status:Closed by BANDAR CONTI on 06/11/19 [facility] PROGRESSon 06-08-2019 PROGRESS HNO ID: [id number] Author: Billy (Rt) Valentino Joseph Service: Radiology Author Type: Energy Assistant Type: Progress Notes Filed: 06/08/2019 1:21 PM Note Text: Radiology Service Progress Note PATIENT NAME: Chevy Neves DATE OF SERVICE: June 08, 2019 TIME: [...] RT Mike June 08, 2019 1:21 PM Normal [facility] XR FEMUR 2V AP/LAT RTon 05-22 XR FEMUR 2V AP/LAT RT * * *Final Report* * * DATE OF EXAM: Jun 08 2019 1:15PM AOX [id number] - XR FEMUR 2V AP/LAT RT / PROCEDURE REASON: Pain * * * * Physician Interpretation * * * * HISTORY: Pain . Right leg pain with reduced range of motion. Torn muscle (accession [id number]), Diffuse right knee pain (accession [id number]) TECHNIQUE: XR FEMUR 2V AP/LAT RT, XR KNEE 4V AP/PA BOTH+LAT/MATHEW RT Laterality: RIGHT Number of different views (projections): 2 (accession [id number]), 4 (accession [id number]) COMPARISON: None RESULT: Right femur: Normal right [...] IN THE RIGHT HIP AND KNEE DESCRIBED Chief Medical Physicist: RHONDA Transcribe Date/Time: Jun 08 2019 4:17P Dictated by : ABDULAZIZ MOTT MD This examination was interpreted and the report reviewed and electronically signed by: ABDULAZIZ MOTT MD on Jun 08 2019 4:19PM EST [id number] Normal [facility] XR KNEE 4V AP/PA BOTH+LAT/ME R [...] reduced range of motion. Torn muscle (accession [id number]), Diffuse right knee pain (accession [id number]) TECHNIQUE: XR FEMUR 2V AP/LAT RT, XR KNEE 4V AP/PA BOTH+LAT/MATHEW RT Laterality: RIGHT Number of different views (projections): 2 (accession [id number]), 4 (accession [id number]) COMPARISON: None RESULT: Right femur: Normal right [...] IN THE RIGHT HIP AND KNEE DESCRIBED Chief Medical Physicist: RHONDA Transcribe Date/Time: Jun 08 2019 4:17P Dictated by : ABDULAZIZ MOTT MD This examination was interpreted and the report reviewed and electronically signed by: ABDULAZIZ MOTT MD on Jun 08 2019 4:19PM EST [id number] Normal [facility] Vital Signs Date Time Vital Sign Value Performing Clinician Facility 09-12-2023 10:30-0500 Body height 193.04 cm Anthony Overton Other [employer] Other 09-12-2023 10:30-0500 Body mass index (BMI) [Ratio] 48.08 kg/m2 Anthonyjorden Asenciosa Other [facility] [facility] Other 09-12-2023 10:30-0500 Body temperature 98.1 [degF] Anthonyjorden Overton Other [employer] Other 09-12-2023 10:30-0500 Body weight 179.17 kg Anthony Asenciosa Other [facility] [employer] [facility] Other 09-12-2023 10:30-0500 Diastolic blood pressure 81 mm[Hg] Anthonyjorden Asenciosa Other [employer] Other 09-12-2023 10:30-0500 Respiratory rate 20 /min Anthony Asenciosa Other [facility] Other 09-12-2023 10:30-0500 SaO2% (BldA) [Mass fraction] 97 % Anthony Asenciosa Other [facility] Other 09-12-2023 10:30-0500 Systolic blood pressure 138 mm[Hg] Anthonyjorden Asenciosa Other [employer] Other 09-07-2023 11:20-0500 Diastolic blood pressure 74 mm[Hg] [facility] [address] [place] [address] 09-07-2023 11:20-0500 Heart rate 58 /min [facility] [address] [place] [address] 09-07-2023 11:20-0500 Systolic blood pressure 134 mm[Hg] [facility] [address] [place] [address] 08-26-2023 15:33-0500 Body height 190.5 cm Maged Morrell MD Work Phone: [facility] 08-26-2023 15:33-0500 Body mass index (BMI) [Ratio] 49.62 kg/m2 Maged Morrell MD Work Phone: [facility] 08-26-2023 15:33-0500 Body weight 180.08 kg Maged Morrell MD Work Phone: [facility] 08-26-2023 15:33-0500 Diastolic blood pressure 56 mm[Hg] Maged Morrell MD Work Phone: [facility] 08-26-2023 15:33-0500 Heart rate 67 /min Maged Morrell MD Work Phone: [facility] 08-26-2023 15:33-0500 Systolic blood pressure 138 mm[Hg] Maged Morrell MD Work Phone: [facility] 06-27-2023 13:33-0500 Blood Pressure Location Mikel CHAVEZ [facility] 06-27-2023 13:33-0500 Diastolic blood pressure 81 mm[Hg] Mikel CHAVEZ [facility] 06-27-2023 13:33-0500 Heart rate 88 /min Mikel CHAVEZ [facility] 06-27-2023 13:33-0500 Respiratory rate 16 /min Mikel CHAVEZ [facility] 06-27-2023 13:33-0500 Systolic blood pressure 131 mm[Hg] Mikel CHAVEZ [facility] 06-07-2023 08:10-0400 Body height 193.04 cm Cheri Pringle Other [employer] Other 06-07-2023 08:10-0400 Body mass index (BMI) [Ratio] 48.44 kg/m2 Cheri Pringle Other [employer] Other 06-07-2023 08:10-0400 Body temperature 98.8 [degF] Cheri Pringle Other [employer] Other 06-07-2023 08:10-0400 Body weight 180.53 kg Cheri Pringle Other [employer] Other 06-07-2023 08:10-0400 Diastolic blood pressure 78 mm[Hg] Cheri Pringle Other [employer] Other 06-07-2023 08:10-0400 Respiratory rate 20 /min Cheri Pringle Other [employer] Other 06-07-2023 08:10-0400 SaO2% (BldA) [Mass fraction] 97 % Cheri Pringle Other [employer] Other 06-07-2023 08:10-0400 Systolic blood pressure 136 mm[Hg] Cheri Pringle Other [employer] Other 03-07-2023 14:37-0400 Blood Pressure Location Mikel CHAVEZ [facility] 03-07-2023 14:37-0400 Diastolic blood pressure 83 mm[Hg] Mikel CHAVEZ [facility] 03-07-2023 14:37-0400 Heart rate 88 /min Mikel CHAVEZ [facility] 03-07-2023 14:37-0400 Respiratory rate 16 /min Mikel CHAVEZ [facility] 03-07-2023 14:37-0400 Systolic blood pressure 136 mm[Hg] Mikel CHAVEZ [facility] 02-03-2023 18:23-0400 Body height 193.04 cm Cheri Pringle Work Phone: [facility] DO Work Phone: 02-03-2023 18:23-0400 Body mass index (BMI) [Ratio] 49.3 kg/m2 Cheri Pringle Work Phone: [facility] 250 DO Work Phone: 02-03-2023 18:23-0400 Body surface area Derived from formula 2.99 m2 Cheri Pringle Work Phone: [facility] 250 DO Work Phone: 02-03-2023 18:23-0400 Body weight 183.71 kg Cheri Pringle Work Phone: [facility] 250 DO Work Phone: 02-03-2023 18:23-0400 Diastolic blood pressure 80 mm[Hg] Cheri Pringle Work Phone: [facility] DO Work Phone: 02-03-2023 18:23-0400 Heart rate 64 /min Cheri Pringle Work Phone: [facility] DO Work Phone: 02-03-2023 18:23-0400 Systolic blood pressure 130 mm[Hg] Cheri Pringle Work Phone: [facility] DO Work Phone: 02-03-2023 15:07-0400 Body height 193.04 cm Cheri Pringle Work Phone: [facility] 250 DO Work Phone: 02-03-2023 15:07-0400 Body mass index (BMI) [Ratio] 49.3 kg/m2 Cheri Pringle Work Phone: [facility] 250 DO Work Phone: 02-03-2023 15:07-0400 Body surface area Derived from formula 2.99 m2 Cheri Pringle Work Phone: [facility] 250 DO Work Phone: 02-03-2023 15:07-0400 Body weight 183.71 kg Cheri Pringle Work Phone: [facility] 250 DO Work Phone: 02-03-2023 15:07-0400 Diastolic blood pressure 88 mm[Hg] Cheri Pringle Work Phone: [facility] 250 DO Work Phone: 02-03-2023 15:07-0400 Heart rate 67 /min Cheri Pringle Work Phone: [facility] 250 DO Work Phone: 02-03-2023 15:07-0400 Systolic blood pressure 158 mm[Hg] Cheri Pringle Work Phone: [facility] 250 DO Work Phone: 07-02-2022 15:16-0500 Diastolic blood pressure 70 mm[Hg] Cheri Pringle Work Phone: [facility] 250 DO Work Phone: 07-02-2022 15:16-0500 Systolic blood pressure 138 mm[Hg] Cheri Pringle Work Phone: [facility] 250 DO Work Phone: 07-02-2022 14:57-0500 Body height 193.04 cm Cheri Pringle Work Phone: [facility] 250 DO Work Phone: 07-02-2022 14:57-0500 Body mass index (BMI) [Ratio] 48.81 kg/m2 Cheri Pringle Work Phone: [facility] 250 DO Work Phone: 07-02-2022 14:57-0500 Body surface area Derived from formula 2.98 m2 Cheri Pringle Work Phone: [facility] 250 DO Work Phone: 07-02-2022 14:57-0500 Body weight 181.89 kg Cheri Pringle Work Phone: [facility] 250 DO Work Phone: 07-02-2022 14:57-0500 Diastolic blood pressure 66 mm[Hg] Cheri Pringle Work Phone: [facility] 250 DO Work Phone: 07-02-2022 14:57-0500 Heart rate 72 /min Cheri Pringle Work Phone: [facility] 250 DO Work Phone: 07-02-2022 14:57-0500 Systolic blood pressure 142 mm[Hg] Cheri Pringle Work Phone: [facility] 250 DO Work Phone: 06-01-2022 09:10-0400 Body height 193.04 cm Cheri Pringle Other [facility] [employer] Other 06-01-2022 09:10-0400 Body mass index (BMI) [Ratio] 49.84 kg/m2 Cheri Pringle Other [facility] [employer] Other 06-01-2022 09:10-0400 Body temperature 96.9 [degF] Cheri Pringle Other [employer] Other 06-01-2022 09:10-0400 Body weight 185.75 kg Cheri Pringle Other [employer] Other 06-01-2022 09:10-0400 Diastolic blood pressure 78 mm[Hg] Cheri Pringle Other [employer] Other 06-01-2022 09:10-0400 Respiratory rate 20 /min Cheri Pringle Other [employer] Other 06-01-2022 09:10-0400 SaO2% (BldA) [Mass fraction] 97 % Cheri Pringle Other [employer] Other 06-01-2022 09:10-0400 Systolic blood pressure 152 mm[Hg] Cheri Pringle Other [employer] Other 12-09-2021 13:33-0400 Body height 193.04 cm Cheri Pringle [facility] 250 DO Work Phone: 12-09-2021 13:33-0400 Body mass index (BMI) [Ratio] 48.2 kg/m2 Cheri Pringle [facility] 250 DO Work Phone: 12-09-2021 13:33-0400 Body surface area Derived from formula 2.96 m2 Cheri Pringle [facility] 250 DO Work Phone: 12-09-2021 13:33-0400 Body weight 179.63 kg [facility] Work Phone: 12-09-2021 13:33-0400 Diastolic blood pressure 86 mm[Hg] Cheri Pringle [facility] 250 DO Work Phone: 12-09-2021 13:33-0400 Heart rate 56 /min Cheri Lloydpark [facility] 250 DO Work Phone: 12-09-2021 13:33-0400 Systolic blood pressure 132 mm[Hg] Cheri Anglin Yary [facility] 250 DO Work Phone: 11-18-2021 00:00-0400 6.1 1 Cheri Anglin Yary [facility] 250 DO Work Phone: Comment on above: [id number] 11-18-2021 00:00-0400 87 1 Cheri Anglin Yary -[facility] DO Work Phone: Comment on above: [id number] 10-02-2021 12:41-0500 Body height 193.04 cm Cheri Pringle [facility] 250 DO Work Phone: 10-02-2021 12:41-0500 Body mass index (BMI) [Ratio] 48.45 kg/m2 Cheri Anglin Yary [facility] 250 DO Work Phone: 10-02-2021 12:41-0500 Body surface area Derived from formula 2.97 m2 Cheri Anglin [employer] [facility] 250 DO Work Phone: 10-02-2021 12:41-0500 Body weight 180.53 kg Cheri Anglin [employer] [facility] 250 DO Work Phone: 10-02-2021 12:41-0500 Diastolic blood pressure 80 mm[Hg] Cheri Pringle [facility] 250 DO Work Phone: 10-02-2021 12:41-0500 Heart rate 48 /min Cheri Pringle [facility] 250 DO Work Phone: 10-02-2021 12:41-0500 Systolic blood pressure 150 mm[Hg] Cheri Pringle [facility] 250 DO Work Phone: 09-21-2021 15:17-0500 Body height 193.04 cm Cheri Derrek Pringle [facility] 250 DO Work Phone: 09-21-2021 15:17-0500 Body mass index (BMI) [Ratio] 48.2 kg/m2 Cheri Pringle [facility] 250 DO Work Phone: 09-21-2021 15:17-0500 Body surface area Derived from formula 2.96 m2 Cheri Anglin [employer] [facility] 250 DO Work Phone: 09-21-2021 15:17-0500 Body weight 179.63 kg Cheri Pringle [facility] 250 DO Work Phone: 09-21-2021 15:17-0500 Diastolic blood pressure 94 mm[Hg] Cheri Pringle [facility] 250 DO Work Phone: 09-21-2021 15:17-0500 Heart rate 87 /min Cheri Derrek Pringle [facility] 250 DO Work Phone: 09-21-2021 15:17-0500 Systolic blood pressure 146 mm[Hg] Cheri Anglin Yary [facility] 250 DO Work Phone: 09-07-2021 12:05-0500 Body height 193.04 cm Cheri Pringle [facility] 250 DO Work Phone: 09-07-2021 12:05-0500 Body mass index (BMI) [Ratio] 49.18 kg/m2 Cheri Anglin Yary [facility] 250 DO Work Phone: 09-07-2021 12:05-0500 Body surface area Derived from formula 2.99 m2 Cheri Pringle [facility] 250 DO Work Phone: 09-07-2021 12:05-0500 Body weight 183.25 kg Cheri Pringle [facility] 250 DO Work Phone: 09-07-2021 12:05-0500 Diastolic blood pressure 92 mm[Hg] Cheri Pringle [facility] 250 DO Work Phone: 09-07-2021 12:05-0500 Heart rate 46 /min Cheri Pringle [facility] 250 DO Work Phone: 09-07-2021 12:05-0500 Systolic blood pressure 158 mm[Hg] Cheri Pringle [facility] 250 DO Work Phone: 08-10-2021 14:44-0500 Body height 185.42 cm Cheri Pringle [facility] 250 DO Work Phone: 08-10-2021 14:44-0500 Body mass index (BMI) [Ratio] 51.72 kg/m2 Cheri Pringle [facility] 250 DO Work Phone: 08-10-2021 14:44-0500 Body surface area Derived from formula 2.86 m2 Cheri Pringle [facility] 250 DO Work Phone: 08-10-2021 14:44-0500 Body weight 177.81 kg Cheri Pringle [facility] 250 DO Work Phone: 08-10-2021 14:44-0500 Diastolic blood pressure 66 mm[Hg] Cheri Pringle [facility] 250 DO Work Phone: 08-10-2021 14:44-0500 Heart rate 91 /min Cheri Pringle [facility] 250 DO Work Phone: 08-10-2021 14:44-0500 Systolic blood pressure 138 mm[Hg] Cheri Pringle [facility] 250 DO Work Phone: 08-08-2021 08:49-0500 60 1 Cheri Pringle [facility] [place] Work Phone: Comment on above: [id number] 05-26-2021 09:10-0400 Body height 193.04 cm Cheri Pringle Other [employer] Other 05-26-2021 09:10-0400 Body mass index (BMI) [Ratio] 47.28 kg/m2 Cheri Pringle Other [employer] Other 05-26-2021 09:10-0400 Body temperature 97.7 [degF] Cheri Pringle Other [employer] Other 05-26-2021 09:10-0400 Body weight 176.22 kg Cheri Pringle Other [employer] Other 05-26-2021 09:10-0400 Diastolic blood pressure 82 mm[Hg] Cheri Pringle Other [employer] Other 05-26-2021 09:10-0400 Respiratory rate 20 /min Cheri Pringle Other [employer] Other 05-26-2021 09:10-0400 SaO2% (BldA) [Mass fraction] 98 % Cheri Pringle Other [employer] Other 05-26-2021 09:10-0400 Systolic blood pressure 164 mm[Hg] Cheri Pringel Other [employer] Other Encounters Encounter Date Encounter Type Care Provider Facility Start: 10-31-2023 ambulatory Mikel Stafford ty:FUAD Singh Start: 09-21-2023 End: 09-21-2023 ambulatory ANDRE CARLOS Not Available Start: 09-12-2023 End: 09-12-2023 ambulatory Anthony Overton Other [employer] Other Start: 09-12-2023 Office outpatient ne w 30 minutes Anthnoy Overton [facility] Pulmonary Disease Start: 09-07-2023 End: 09-08-2023 ambulatory [facility] Start: 09-07-2023 End: 09-07-2023 Subsequent hospital visit by physician Fallon Logan Stress Room 1 [facility] Comment on above: Mixed hyperlipidemia ; Hypertension, benign; Shortness of breath; Hyperlipidemia, unspecified Start: 08-26-2023 End: 08-26-2023 ambulatory [facility] Ambulatory Start: 08-26-2023 End: 08-26-2023 Office outpatient visit 25 minutes Maged Morrell MD Work Phone: [facility] Comment on above: Mixed hyperlipidemia ; Paroxysmal atrial fibrillation (CMS/HCC); Hypertension, benign; Obesity, Class III, BMI 40-49.9 (morbid obesity) (CMS/HCC); Shortness of breath Start: 08-01-2023 Telephone encounter Cheri Pringle [facility] Start: 08-01-2023 End: 08-01-2023 ambulatory Cheri Pringle Facility:[facility] Start: 08-01-2023 End: 08-01-2023 ambulatory DO Cheri Pringle Work Phone: [facility] Work Phone: Start: 08-01-2023 End: 08-01-2023 Patient encounter procedure DO Cheri Pringle Work Phone: [facility] [place] Work Phone: Start: 07-27-2023 End: 07-27-2023 ambulatory ANDRE H TERRANCE Not Available Start: 07-18-2023 End: 07-18-2023 ambulatory Cheri Pringle Other [employer] Other Start: 07-18-2023 Telephone encounter Cheri Pringle [facility] Start: 07-11-2023 End: 07-12-2023 ambulatory CHERI PRINGLE [facility] Start: 07-11-2023 End: 07-11-2023 Subsequent hospital visit by physician Fallon Mena 2 [facility] Comment on above: Hyperlipidemia, unsp ecified; Unspecified atrial fibrillation (CMS/HCC) Start: 06-27-2023 End: 06-28-2023 ambulatory Mikel CHAVEZ Facility:[facility] Start: 06-27-2023 End: 06-27-2023 Patient encounter procedure Mikel CHAVEZ [facility] Start: 06-09-2023 End: 06-09-2023 ambulatory Cheri Pringle Other [employer] Other Start: 06-09-2023 Telephone encounter Cheri Pringle [facility] Start: 06-07-2023 End: 06-07-2023 ambulatory Cheri Pringle Other [employer] Other Start: 06-07-2023 Encounter for genera l adult medical examination without abnormal findings Cheri Pringle [facility] Start: 06-07-2023 Office outpatient vi sit 25 minutes Cheri Pringle [facility] Start: 03-07-2023 End: 03-08-2023 ambulatory Mikel CHAVEZ Facility:[facility] Start: 03-07-2023 End: 03-07-2023 Patient encounter procedure Mikel CHAVEZ [facility] Start: 02-03-2023 Office outpatient vi sit 25 minutes Cheri Pringle Work Phone: [facility] 250 DO Work Phone: Start: 01-27-2023 Rx Renewal Cheri Pringle Work Phone: [facility] 250 DO Work Phone: Start: 01-10-2023 End: 01-11-2023 ambulatory Mikel CHAVEZ Facility:[facility] Start: 12-13-2022 End: 12-13-2022 Departed Referred PHYSICIAN NO FAMILY [facility] [place] Work Phone: Start: 12-13-2022 End: 12-13-2022 ambulatory PHYSICIAN NO FAMILY [facility] Work Phone: Start: 12-13-2022 Nursing evaluation o f patient and report Cheri Pringle [facility] Start: 12-09-2022 ambulatory Mikelletty CHAVEZ Facility :[facility] Start: 12-06-2022 End: 12-06-2022 ambulatory Cheri Pringle Other [facility] [employer] Other Start: 12-06-2022 Telephone encounter Cheri Pringle [facility] Start: 11-29-2022 End: 11-29-2022 ambulatory PHYSICIAN NO Facility:[facility] Start: 11-29-2022 End: 11-29-2022 Departed Referred DO Cheri Pringle Work Phone: [facility] [place] Work Phone: Start: 11-29-2022 End: 11-29-2022 ambulatory DO Cheri Pringle Work Phone: [facility] Work Phone: Start: 11-29-2022 Telephone encounter Cheri Pringle [facility] Start: 07-02-[address] Maged arguello [facility] RAMIRE[facility] Facility: Start: 07-02-2022 Office outpatient vi sit 25 minutes Cheri Pringle Work Phone: [facility] 250 DO Work Phone: Start: 06-15-2022 End: 06-15-2022 ambulatory DO Cheri Pringle Work Phone: [facility] Work Phone: Start: 06-15-2022 End: 06-15-2022 Departed Referred DO Cheri Pringle Work Phone: [facility] [place] Start: 06-04-2022 End: 06-04-2022 ambulatory Cheri Pringle Other [employer] Other Start: 06-04-2022 Telephone encounter Cheri Pringle [facility] Start: 06-01-2022 Encounter for genera l adult medical examination without abnormal findings Cheri Pringle [facility] Start: 06-01-2022 Office outpatient vi sit 25 minutes [facility] Start: 06-01-2022 Telephone encounter Cheri Pringle [facility] Start: 06-01-2022 End: 06-01-2022 ambulatory DO Cheri Pringle Work Phone: [employer] Other Start: 06-01-2022 End: 06-01-2022 Departed Referred DO Cheri Pringle Work Phone: [facility] [place] Start: 01-27-2022 Rx Renewal Cheri Pringle Work Phone: [facility] DO Work Phone: Start: 12-09-2021 Office outpatient vi sit 15 minutes Cheri Pringle [facility] 250 DO Work Phone: Start: 10-02-2021 Office outpatient vi sit 25 minutes Cheri Pringle [facility] DO Work Phone: Start: 10-02-2021 Patient encounter procedure Cheri Prnigle -[facility] DO Work Phone: Start: 09-21-2021 Office outpatient vi sit 25 minutes Cheri Pringle -[facility] 250 DO Work Phone: Start: 09-07-2021 Patient encounter procedure Cheri Pringle -[facility] DO Work Phone: Start: 08-13-2021 End: 08-13-2021 ambulatory Cheri Pringle Other [employer] Other Start: 08-13-2021 Telephone encounter Cheri Pringle [facility] Start: 08-11-2021 End: 08-11-2021 ambulatory Cheri Pringle Other [facility] [employer] Other Start: 08-11-2021 Telephone encounter Cheri Pringle [facility] Start: 08-10-2021 Patient encounter procedure Cheri Pringle -[facility] DO Work Phone: Start: 05-26-2021 Encounter for genera l adult medical examination without abnormal findings Cheri Pringle [facility] Start: 05-26-2021 Office outpatient vi sit 15 minutes Cheri Pringle [facility] Start: 04-30-[address] CHERI PRINGLE Facilit y:[facility] Start: 08-05-2020 End: 08-05-[address] YVES VELASCO Facility:[facility] Procedures Date Procedure Procedure Detail Performing Clinician Start: 09-07-2023 STRESS TEST ONLY ADOLFO MORRELL Start: 09-07-2023 Cv strs tst xers&/or rx cont ecg w/o i&r Maged Morrell MD Work Phone: Start: 08-26-2023 ECG 12-LEAD MAGED SOLITARIO Start: 08-26-2023 Ecg routine ecg w/le ast 12 lds w/i&r Maged Morrell MD Work Phone: Start: 08-01-2023 CT of chest without contrast DO Cheri Pringle Work Phone: Start: 07-11-2023 CT CARDIAC SCORING W O IV CONTRAST MAGED MORRELL Start: 07-11-2023 Ct heart no contrast quant eval coronry calcium Cheri Pringle DO Work Phone: Start: 11-29-2022 Urine culture DO Cheri Pringle Work Phone: Start: 06-01-2022 Piperacillin/tazobactam Cheri Pringle Other Start: 08-22-2020 Colonoscopy Fallon 1 Start: 08-22-2020 Colonoscopy Cheri Anglin Gi r[facility] Colonoscopy Mikel CHAVEZ Decompression of med juan daniel nerve Cheri Pringle Extraction of wisdom tooth D tam Pringle Leg repair Cheri Pringle Repair of quadriceps tendon Mikel CHAVEZ Urine culture DO Cheri Harvey bridgette Work Phone: Urine culture DO Cheri Harvey bridgette Work Phone: Plan of Treatment Date Care Activity Detail Author Start: 08-22-2030 Screening for malignant neoplasm of colon [facility] Start: 03-06-2024 End: 03-06-2024 Patient encounter procedure 03/06/2024 8:40 AM EDT Office Visit [place] [id number] [address] Maged Morrell MD [facility] 2, [address] [address] [facility] Start: 10-11-2023 End: 10-11-2023 Patient encounter procedure 10/11/2023 8:00 AM EST Office Visit [address] [place] [id number] [place] [address] [facility] Department [place] [address] [facility] Start: 08-26-2023 FUV, Provider: Maged Morrell, Status: Pen, Time: 3:20 PM FUV, Provider: Maged Morrell, Status: Pen, Time: 3:20 PM [facility] DO Work Phone: Start: 08-26-2023 End: 08-26-2023 Patient encounter procedure 08/26/2023 3:20 PM EST Office Visit [facility] [address] [address] Maged Morrell MD [facility] 2, [address] [address] [facility] Start: 08-26-2023 End: 08-26-2025 Cardiac stress study Procedure Stress Test Cardiac Services Routine Mixed hyperlipidemia Hypertension, benign Shortness of breath Expected: 08/26/2023 (Approximate), Expires: 08/26/2025 [facility] Service Area Work Phone: Comment on above: Expected: 08/26/2023 (Approximate), Expires: 08/26/2025 Start: 04-22-2023 Influenza vaccination Influenza Vacc ine (#1) [facility] Start: 02-03-2023 FUV, Provider: Maged Morrell, Status: Pen, Time: 2:40 PM FUV, Provider: Maged Morrell, Status: Pen, Time: 2:40 PM [facility] DO Work Phone: Start: 01-19-2023 FUV, Provider: Maged Morrell, Status: Pen, Time: 3:20 PM FUV, Provider: Maged Morrell, Status: Pen, Time: 3:20 PM -[facility] DO Work Phone: Start: 12-13-2022 Bacteria identified in Urine by Culture Urine Culture [facility] Start: 07-02-2022 FUV, Provider: Maged Morrell, Status: Pen, Time: 2:40 PM FUV, Provider: Maged Morrell, Status: Pen, Time: 2:40 PM [facility] DO Work Phone: Start: 06-01-2022 FUV, Provider: Maged Morrell, Status: Pen, Time: 9:00 AM FUV, Provider: Maged Morrell, Status: Pen, Time: 9:00 AM [facility] DO Work Phone: Start: 10-30-2021 FUV, Provider: Maged Morrell, Status: Pen, Time: 1:50 PM FUV, Provider: Maged Morrell, Status: Pen, Time: 1:50 PM [facility] DO Work Phone: Start: 10-09-2021 SURGNON, Provider: Maged Morrell, Status: Pen, Time: 8:00 AM SURGNONUH, Provider: Maged Morrell, Status: Pen, Time: 8:00 AM [facility] DO Work Phone: Start: 10-02-2021 FUV, Provider: Maged Morrell, Status: Pen, Time: 12:30 PM FUV, Provider: Maged Morrell, Status: Pen, Time: 12:30 PM [facility] DO Work Phone: Start: 09-21-2021 FUV, Provider: Carmen Aguilar, Status: Pen, Time: 3:00 PM FUV, Provider: Carmen Aguilar, Status: Pen, Time: 3:00 PM [facility] 250 DO Work Phone: Start: 09-02-2021 FUV, Provider: Carmen Aguilar, Status: Pen, Time: 8:00 AM FUV, Provider: Carmen Aguilar, Status: Pen, Time: 8:00 AM -[facility] 250 DO Work Phone: Start: 10-06-2020 DTaP/Tdap/Td Vaccine s (2 - Td or Tdap) DTaP/Tdap/Td Vaccines (2 - Td or Tdap) [facility] Start: 2013 Zoster Vaccines (1 o f 2) Zoster Vaccines (1 of 2) [facility] Start: 1981 Diabetes mellitus screening Diabetes Screening [facility] Start: 1981 Hepatitis C screening Hepatitis C Sc [facility] Start: 1964 MMR Vaccines (1 of 1 - Standard series) MMR Vaccines (1 of 1 - Standard series) [facility] Start: 1965 COVID-19 Vaccine (#1) COVID-19 Vacci ne (#1) [facility] Start: 1963 HIV screening HIV Screening [facility] Start: 1963 Lipid panel Lipid Panel [facility] Start: 1963 Screening for malignant neoplasm of colon [facility] Start: 1963 Thyroid stimulating hormone measurement TSH Level [facility] Start: 1963 Yearly Adult Physical Yearly Adult P hysical [facility] Bacteria identified in Urine by Culture [facility] Bacteria identified in Urine by Culture [facility] Immunizations Immunization Date Immunization Notes Care Provider Fa cility 10-06-2010 tetanus toxoid, redu gracia diphtheria toxoid, and acellular pertussis vaccine, adsorbed Maged Morrell MD Work Phone: [facility] Work Phone: Payers Date Payer Category Payer Unknown 2022 Self-pay [id number] 2022 Unknown [id number] 1965 Unknown [id number] 2.16.84 [id number] 1963 Unknown [id number] 2.16.84 [id number] 1963 Unknown [id number] 2.16. [id number] 1963 Unknown [id number] 2.16.8 [id number] 1963 Unknown [id number] 2.16.8 [id number] 1963 Unknown [id number] 2.16.8 [id number] 1963 Unknown [id number] 2.16.8 [id number] 1963 Unknown [id number] 2.16.8 [id number] 1963 Unknown [id number] 2.16.84 [id number] 1963 Unknown [id number] 2.16.84 [id number] 1963 Unknown [id number] 2.16.84 [id number] 1963 Unknown [id number] 2.16.840 .[id number] 1959 Unknown [id number] 1959 Unknown [id number] Unknown [id number] 2.16.8 [id number] Unknown [id number] 2.16.8 [id number] Unknown [id number] 2.16.8 [id number] Social History Date Type Detail Facility Start: 08-16-2023 End: 08-26-2023 No alcohol use No alcohol use [facility] 250 DO Work Phone: Start: 08-16-2023 End: 08-26-2023 Sex Assigned At [facility] Start: 10-28-2021 End: 08-16-2023 Tobacco smoking status SCIS Never smoked tobacco (finding) [facility] Start: 1965 Sex Assigned At Male F [facility] Tobacco smoking status [facility] Tobacco smoking consumption unknown [facility] Work Phone: Start: 1965 [facility] Work [facility] Start: 07-01-2023 End: 09-07-2023 Exposure to SARS-CoV-2 (event) Not sure [facility] Start: 08-16-2023 Tobacco use and exposure Smokeless tobacco non-user [facility] Work Phone: Start: 08-26-2023 Alcohol intake Lifetime non-d chelsey (finding) [facility] Work Phone: Functional Status Date Assessment Result Facility 06-27-2023 Functional Status N/A [facility] 03-07-2023 Functional Status N/A [facility] of [facility] Clinical Notes 05-26-2021 to 09-12-2023 Note Date & Type Note Facility 09-12-2023 Evaluation note Encounter Date Diagnosis Assessment Notes Aug, Solitary pulmonary nodule (ICD-10 - R91.1) Reviewed CT imaging. This is consistent with a minor fissure interfissural lymph node. It is only 3mm in size. Not present on 10/04/2016 imaging, but that was a CT dedicated for coronary artery calcium scoring. He is a low risk patient - lifelong nonsmoker. According to Fleischner Society Guidelines, no further F/U is required. I did offer to order a 1 year F/U if he wanted one for peace of mind, but he voiced he was fine with not having any further chest CT. He was counseled on warning signs including decreased appetite & unexplained weight loss, night sweats, and hemoptysis. F/U PRN. Aug, AWAIS (obstructive sleep apnea) (ICD-10 - G47.33) Patient has AWAIS and is a CPAP - states he cannot sleep without using it. He is asking about having someone follow him. Will refer to the [facility] for further management and evaluation. Aug, Morbid obesity (ICD-10 - E66.01) Aug, BMI 45.0-49.9, adult (ICD-10 - Z68.42) [facility] Other 01-05-2024 History of Present illness Narrative* Maged Morrell MD - 08/26/2023 3:20 PM EST Subjective Chevy Neves is a 58 y.o. male Chief Complaint Follow-up HPI Patient returns in follow-up of problems as noted. He describes occasional palpitation but only forseveral seconds because of this I suspect he is actually having premature ventricular or premature atrial contractions. Symptoms or not sustained hence I believe atrial fibrillation is not recurrent.Today's EKG demonstrates sinus rhythm with an acceptable QT interval. He had questions regarding calcium scoring. He recently had it done. His score was 485 which puts him in the 91st percentile. LDL cholesterol is 102. PCP recommended statin therapy and I concur. We discussed coronary disease in great detail. From time to time he has exertional dyspnea which could be anginal equivalent and because of this and his high calcium score I recommend stress testing. He believes he can walk on the treadmill and because of this treadmill testing will be recommended. We did provide him with a prescription for statin therapy and encouraged him to start taking it. Will reconvene to go over test test test results but also to determine if he is having any of the statin related side effects that he is fearful of. Review of Systems Cardiovascular: Positive for irregular heartbeat. All other systems reviewed and are negative. Visit Vitals BP 138/56 (BP Location: Right arm, Patient Position: Sitting) Pulse 67 Ht 1.905 m (6' 3 ) Wt (!) 180 kg (397 lb) BMI 49.62 kg/m Smoking Status Never BSA 3.09 m EKG done in office today Objective Physical Exam Constitutional: Appearance: Normal appearance. He is normal weight. HENT: Nose: Nose normal. Neck: Vascular: No carotid bruit. Cardiovascular: Rate and Rhythm: Normal rate. Pulses: Normal pulses. Heart sounds: Normal heart sounds. Pulmonary: Effort: Pulmonary effort is normal. Abdominal: General: Bowel sounds are normal. Palpations: Abdomen is soft. Genitourinary: Rectum: Normal. Musculoskeletal: General: Normal range of motion. Cervical back: Normal range of motion. Right lower leg: No edema. Left lower leg: No edema. Skin: General: Skin is warm and dry. Neurological: General: No focal deficit present. Mental Status: He is alert. Psychiatric: Mood and Affect: Mood normal. Behavior: Behavior normal. Thought Content: Thought content normal. Judgment: Judgment normal. Current Medications Current Outpatient Medications: aspirin 81 mg EC tablet, Take 1 tablet (81 mg) by mouth once daily., Disp: , Rfl: cholecalciferol (Vitamin D3) 50 mcg (2,000 unit) capsule, Take 2 capsules (100 mcg) by mouth early in the morning.., Disp: , Rfl: cranberry conc-ascorbic acid (Cranberry Plus Vitamin C) 140-100 mg capsule, Take 1 capsule by mouthonce daily., Disp: , Rfl: dofetilide (Tikosyn) 250 mcg capsule, Take 1 capsule (250 mcg) by mouth twice a day., Disp: , Rfl: dutasteride (Avodart) 0.5 mg capsule, Take 1 capsule (0.5 mg) by mouth once daily., Disp: , Rfl: EPINEPHrine 0.3 mg/0.3 mL injection syringe, Inject 0.3 mL (0.3 mg) as directed., Disp: , Rfl: xshwo-tg-6-ymv-put-esfyxai-ast (krill oil) 1,318-442-00-80 mg capsule, Take 1 capsule by mouth oncedaily., Disp: , Rfl: magnesium gluconate 12.5 mg magne- sium (250 mg) tablet, Take 1 tablet (250 mg) by mouth twice a day., Disp: , Rfl: olmesartan (BENIcar) 20 mg tablet, Take 1 tablet (20 mg) by mouth once daily., Disp: , Rfl: psyllium (Metamucil) 3.4 gram packet, Take 1 packet by mouth once daily., Disp: , Rfl: Assessment/Plan 1. Mixed hyperlipidemia LDL cholesterol is acceptable but because of high calcium score we recommend initiation of statin therapy. 2. Paroxysmal atrial fibrillation (CMS/HCC) No recurrence on dofetilide therapy continue same. QT interval acceptable. 3. Hypertension, benign Adequate control on current therapy. No adjustments recommended 4. Obesity, Class III, BMI 40-49.9 (morbid obesity) (CMS/HCC) The merits of diet and exercise with weight loss were advocated. Scribe Attestation By signing my name below, IJamilah LPN , Scribe attest that this documentation has been prepared under the direction and in the presence of Andi Morrell MD. documented in this [facility] Work Phone: 1(417) 800-280601-05-2024 Instructions* Patient Instructions* Sebastien Eason MA - 08/26/2023 3:20 PM EST Please bring all medicines, vitamins, and herbal supplements with you when you come to the office. Prescriptions will not be filled unless you are compliant with your follow up appointments or have a follow up appointment scheduled as per instruction of your physician. Refills should be requested at the time of your visit. documented in this [facility] Work Phone: 1(233) 249-677011-06-2023 Hospital Discharge instructions Patient Education 06/27/2023 14:38:23 [...] urethra. Follow these instructions at home: Take fnpw-wyf-vuoxnik and prescription medicines only as told by [...] provider. Document Revised: 02/24/2022 Document Reviewed: 02/24/2022 [employer] Patient Education 2022 [employer]. Follow Up Care 03/07/2023 15:14:27 With:SCOTT VINSON, Mikel Wagner, BRANDIL Address: [facility] [address] , [place] [address]- When:Within 4 Month(s) [facility] Evaluation [facility]* Encounter Date Diagnosis Assessment Notes [...] (ICD-10 - N30.90) He did see Dr. Chavez in December (2022) for evaluation, he felt [...] he saw him after he saw Dr. Chavez and told him about the medications that Dr. Chavez put him on. He was taken off the Olmesartan but since he stopped the medicine that Dr. Chavez put him on he did restart the Olmesartan. I did recommend that he let Dr. Farfan office know that he has restarted this. 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 He has done this by trying to watch his intake of carbs and sugars. He is to continue with what he is doing. May, Elevated PSA (ICD-10 - R97.20) He is currently taking Dutasteride 0.[address] Chavez. He voices that when his last PSA level was checked it was down. He will return to see him soon. I will try and obtain his last office visit note. May, Wellness examination (ICD-10 - Z00.00) *for lab order only [facility] Other 07-17-2023 Hospital Discharge instructions Patient Education [...] urethra. Follow these instructions at home: Take ibjc-lwt-nryngak and prescription medicines only as told by [...] provider. Document Revised: 02/24/2022 Document Reviewed: 02/24/2022 [employer] Patient Education 2022 [employer]. Follow Up Care 01/10/2023 14:44:46 With:SCOTT VINSON, Mikel Wagner, URL Address: [facility] [address] , [place] [address]- [phone] When: Unknown Comments:3 mos (new med) [facility] 05-22-2023 NoteChief Complaint referral for possible cystitis [...] When Contact Information SCOTT VINSON, Mikel Wagner, URL [facility] [address], [place] [address]- Additional Instructions: 2 mos with PSA Patient Education Prostatitis I, Melania Lazo, personally scribed for Dr. Chavez on 01/10/2023 14:42:13. . Documentati (more content not included)...[facility]:Result Comment: Electronically Signed By: Mikel CHAVEZ MD\.br\Date and Time Signed: 01/10/23 14:45 EDT\.br\Electronically Co-Signed By: Melania Lazo\.br\Date and Time Co-Signed: 01/10/23 14:42 [id number] Evaluation note* Encounter Date Diagnosis Assessment Notes Treatment Notes Treatment Clinical Notes Nov, Cystitis (ICD-10 - N30.90) [facility] Other 04-10-2023 Evaluation note* Encounter Date Diagnosis Assessment Notes Treatment Notes Treatment Clinical Notes Nov, Cystitis (ICD-10 - N30.90) [facility] Other 10-11-2022 Evaluation note* Encounter Date Diagnosis [...] 3.460. Will continue to monitor. 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 He is to continue to monitor. [facility] Other 10-05-2021 Evaluation note* Encounter Date Diagnosis [...] (ICD-10 - Z00.00) for lab order only [facility] Other Evaluation + Plan note Future Appointments Appointment Date:06/13/2023 03:00:00 PM Scheduled Provider:Mikel CHAVEZ MD Location:[facility] Appointment Type:URO Office Visit [facility] evaluation + Plan note Future Appointments Appointment Date:10/31/2023 02:45:00 PM Scheduled Provider:Mikel CHAVEZ MD Location:[facility] Appointment Type:URO Office Visit [facility] evaluation noteNo InformationNort Property Owl Other Evaluation noteNo assessment information available [facility] Work Phone: Evaluation note* Diagnosis Hyperlipidemia, unspecified Unspecified atrial fibrillation (CMS/HCC) documented in this encounter [facility] Work Phone: Evaluation note* Diagnosis Mixed hyperlipidemia Paroxysmal atrial fibrillation (CMS/HCC) Atrial fibrillation Hypertension, benign Essential hypertension, benign Obesity, Class III, BMI 40-49.9 (morbid obesity) (CMS/HCC) Shortness of breath documented in this encounter [facility] Work Phone: Evaluation note* Diagnosis Mixed hyperlipidemia Hypertension, benign Essential hypertension, benign Shortness of breath Hyperlipidemia, unspecified documented in this encounter [facility] Work Phone: History general Narrative - Reported* Type Description Date Medical History THYROID Medical History FATIGUE Medical History high blood pressure Surgical History wisdom teeth 1997 Surgical History sleep clinic through [facility] - Dr Smith 2002 Surgical History Colonoscopy, Dr. Angelia lara -polyp removed, needs to return at age 53 2-5-[address] Puentes 03/22/18 Surgical History Colonoscopy, Dr. Velasco repeat in 5 years 08/08/20 Surgical History Left hand carpal tunnel surgery - Dr. Marshall 07/2020 Hospitalization History broke lt leg 1999 [facility] Other Hisgqbk general Narrative - Reported* Type Description Date Medical History THYROID Medical History FATIGUE Medical History high blood pressure Medical History Atrial fibrillation Surgical History wisdom teeth 1997 Surgical History sleep clinic through [facility] - Dr Smith 2002 Surgical History Colonoscopy, Dr. Angelia lara -polyp removed, needs to return at age 53 2-5-[address] Puentes 03/22/18 Surgical History Colonoscopy, Dr. Velasco repeat in 08/08/20 Surgical History Left hand carpal tunnel surgery - Dr. Marshall 07/2020 Hospitalization History broke lt leg 1999 Hospitalization History A-Fib 07/2021 Hospitalization History A-Fib 10/2021 [facility] Other Hisdkne general Narrative - Reported* Type Description Date Medical History THYROID Medical History FATIGUE Medical History high blood pressure Medical History Atrial fibrillation Surgical History wisdom teeth 1997 Surgical History sleep clinic [facility] - Dr Smith 2002 Surgical History Colonoscopy, Dr. Angelia lara -polyp removed, needs to return at age 53 2-5-[address] Puentes 03/22/18 Surgical History Colonoscopy, Dr. Velasco repeat in 202408/08/20 Surgical History Left hand carpal tunnel surgery - Dr. Marshall 07/2020 Hospitalization History broke lt leg 1999 Hospitalization History A-Fib 07/2021 Hospitalization History A-Fib 10/2021 [facility] Other Hisrksq general Narrative - Reported* Type Description Date Medical History AWAIS (obstructive sleep apnea) Medical History PAF (paroxysmal atrial fibrillat ion) Medical History HTN (hypertension) Medical History Hyperlipidemia Medical History Solitary pulmonary nodule Surgical History wisdom teeth 1997 Surgical History sleep clinic through [facility] - Dr Smith 2002 Surgical History Colonoscopy, Dr. Angelia lara -polyp removed, needs to return at age 53 2-5-[address] Puentes 03/22/18 Surgical History Colonoscopy, Dr. Velasco repeat in 202408/08/20 Surgical History Left hand carpal tunnel surgery - Dr. Marshall 07/2020 Hospitalization History broke lt leg 1999 Hospitalization History A-Fib 07/2021 Hospitalization History A-Fib 10/2021 [facility] Other History of Present illness Narrative* The [...] medication regimen. He denies medication side effects. [facility] [employer] Work Phone: History of Present illness Narrative* [...] medication regimen. He denies medication side effects. [facility] Work Phone: History of Present illness NarrativePatient [...] the merits of diet exercise and weight loss.[facility] DO Work Phone: History of Present illness NarrativePatient [...] of diet exercise and weight loss were advocated.[facility] [employer] Work Phone: History of Present illness Narrative* Patient returns in [...] the merits of diet and weight loss. [facility] DO Work Phone: Hospital course Narrative No data available for this section [facility] progress note No data available for this section [facility] reason for referral (narrative)* Reason *FU 09/19 Referral for AWAIS management and evaluation Diagnosis 1 AWAIS (obstructive sle ep apnea) (G47.33) Referral Organization [facility] Referring Provider First Name Anthony Referring Provider Last Name Brooklynn Referring Provider Specialty Pulmonary D iseases Referred Organization [facility] Referred Provider Cheri Hua Referred Address [address] [place] [address] Referred Provider Specialty Sleep Medici ne Referral Priority Routine General Notes Leonardo Chance 09/12 11:47:46 AM > Referral faxed to Sleep Medicine, waiting for appointment at this time [employer] [facility] [employer] Other Reason for visit Narrativereview labs, discuss multiple issues, see treatment plan for further informationNort Property Owl Other Summary Purpose Family History No Family [...] Status:Active Family history of atrial fib rillation: Father(7.49, Z82.49) Status:Active Family history of hypertensi on: Father(7.49, Z82.49) Status:Active Family history of cardiac pa cemaker: Father(7.49, Z82.49) Status:Active Family history of asthma: Mo [...] Status:Active Family history of atrial fib rillation: Father(7.49, Z82.49) Status:Active Family history of hypertensi on: Father(7.49, Z82.49) Status:Active Family history of cardiac pa cemaker: Father(V17.49, Z82.49) Status:Active Family history of asthma: Mo ther(V17.5, Z82.5) Status:Active Family history of diabetes m ellitus: Brother(V18.0, Z83.3) Status:Active Unknown Family Member Name Dates Details Bradycardia: Father Status:Active Family history of atrial fib rillation: Father(7.49, Z82.49) Status:Active Family history of hypertensi on: Father(7.49, Z82.49) Status:Active Family history of cardiac pa cemaker: Father(V17.49, Z82.49) Status:Active Family history of asthma: Mo ther(V17.5, Z82.5) Status:Active Family history of diabetes m fletcheritus: Brother(V18.0, Z83.3) Status:Active Unknown Family Member Name Dates Details Bradycardia: Father Status:Active Family history of atrial fib rillation: Father(V17.49, Z82.49) Status:Active Family history of hypertensi on: Father(V17.49, Z82.49) Status:Active Family history of cardiac pa cemaker: Father(V17.49, Z82.49) Status:Active Family history of asthma: Mo ther(V17.5, Z82.5) Status:Active Family history of diabetes m fletcheritus: Brother(V18.0, Z83.3) Status:Active Advance Directives No Advanced [...] the office.* I am tired * AFTAB NEVES is being seen for follow-up of a hospitalization for atrial fibrillation. * He is ambulatory with steady gait, accompanied by . * July 2021: * Patient was recently hospitalized at [facility]. The patient was seen in Cardiology consult with subsequent cardiovascular management by [facility]. Hospitalization records have been reviewed. * Reason for Cardiology Consultation: afib * Consulting Hatch Boss: Dr. Morrell * Cardiovascular testing: echo * [...] (htn) * I am tired * AFTAB NEVES is being seen for follow-up of a hospitalization for atrial fibrillation. * He is ambulatory with steady gait, accompanied by . * July 2021: * Patient was recently hospitalized at [facility]. The patient was seen in Cardiology consult with subsequent cardiovascular management by [facility]. Hospitalization records have been reviewed. * Reason for Cardiology Consultation: afib * Consulting Hatch Boss: Dr. Morrell * Cardiovascular testing: echo * [...] * CHADS VASc : 1 (htn) AFTAB NEVES is being seen for follow-up of a hospitalization for.AFTAB NEVES is being seen for a 6 month follow-up of.AFTAB NEVES is being seen for a 6 month follow-up of.AFTAB NEVES is being seen for a 6 month follow-up of. Chief Complaint and Reason for Visit Chief Complaint R31.9 Chief Complaint N30.90 Chief Complaint r91.1 Reason for Referral Specialty Diagnoses / Procedures Referred By Contac t Referred To Contact Diagnoses Mixed hyperlipidemia Hypertension, benign Shortness of breath Procedures Stress Test Maged Morrell MD [address] [place] [address] 2, [place] [phone] Referral ID Status Reason Start Date Expiration Date V isits Requested Visits Authorized [id number] Pending Review 08/26/2023 08/25/2024 1 1 Specialty Diagnoses / Procedures Referred By Contac t Referred To Contact Cardiology Diagnoses Mixed hyperlipidemia Paroxysmal atrial fibrillation (CMS/HCC) Hypertension, benign Procedures Follow Up In Cardiology Maged Morrell MD [address] [place] [address] 2, [address] [address] Maged Morrell MD [address] [place] [address], [address] [address] Referral ID Status Reason Start Date Expiration Date V isits Requested Visits Authorized [id number] Authorized 08/26/2023 08/25/2024 1 1 Specialty Diagnoses / Procedures Referred By Contac t Referred To Contact Diagnoses Paroxysmal atrial fibrillation (CMS/HCC) Procedures ECG 12 Lead Maged Morrell MD [address] [place] [address] 2, [address] [address] Referral ID Status Reason Start Date Expiration Date V isits Requested Visits Authorized [id number] Pending Review 08/26/2023 08/25/2024 1 1 Specialty Diagnoses / Procedures Referred By Contac t Referred To Contact Radiology Diagnoses Hyperlipidemia, unspecified Unspecified atrial fibrillation (CMS/HCC) Procedures CT cardiac scoring wo IV contrast Cheri Pringle, DO [address] [place] [address] Referral ID Status Reason Start Date Expiration Date Visits Requested Visits Authorized [id number] Authorized Perform Procedure 3 06/08/2024 1 1 Reason appt pt needs cons ult to evaluate throat, difficulty swallowing pills, voice sounds raspy Diagnosis 1 Dysphagia (R13.10) Referral Organization [facility] Family Moe [place] Referring Provider First Name Cheri Referring Provider Last Name Yary Referring Provider Specialty Family Prac natalya Referred Organization [facility] Referred Provider Andre Carlos Referred Address ,[place], [place],[address] Referred Provider Specialty Ear, Nose an d [...] section and content) DATE CREATED AUTHOR 06/11/2019 [facility] DATE CREATED AUTHOR AUTHOR'S ORGANIZ ATION 04/29/2021 [facility] DATE CREATED AUTHOR AUTHOR'S ORGANIZ ATION 07/03/2022 [employer] DATE CREATED AUTHOR AUTHOR'S ORGANIZ ATION 12/25/2022 [facility] DATE CREATED AUTHOR AUTHOR'S ORGANIZ ATION 06/28/2023 [facility] DATE CREATED AUTHOR AUTHOR'S ORGANIZ ATION 08/28/2023 [facility] DATE CREATED AUTHOR AUTHOR'S ORGANIZ ATION 09/11/2023 [facility] DATE CREATED AUTHOR AUTHOR'S ORGANIZ ATION 09/22/[address] [facility] DATE CREATED AUTHOR AUTHOR'S ORGANIZ ATION 09/30/2023 [facility] Reason for Visit (unrecogniz ed section and content) Specialty Diagnoses / Procedures Referred By Contac t Referred To Contact Radiology Diagnoses Hyperlipidemia, unspecified Unspecified atrial fibrillation (CMS/HCC) Procedures CT cardiac scoring wo IV contrast Cheri Pringle DO [address] [place] [address] Referral ID Status Reason Start Date Expiration Date Visits Requested Visits Authorized [id number] Authorized Perform Procedure 3 06/08/2024 1 1 Reason Comments Follow-up 6 month Specialty Diagnoses / Procedures Referred By Contac t Referred To Contact Diagnoses Paroxysmal atrial fibrillation (CMS/HCC) Procedures ECG 12 Lead Maged Morrell MD [address] [facility] [address] [place] [address] Referral ID Status Reason Start Date Expiration Date V isits Requested Visits Authorized [id number] Pending Review 08/26/2023 08/25/2024 1 1 Specialty Diagnoses / Procedures Referred By Contac t Referred To Contact Cardiology Diagnoses Mixed hyperlipidemia Hypertension, benign Shortness of breath Procedures Stress Test Maged Morrell MD [address] [facility] [address] [place] [address] Referral ID Status Reason Start Date Expiration Date V isits Requested Visits Authorized [id number] Authorized 08/26/2023 08/25/2024 1 1 Care Teams (unrecognized sec tion [...] PHYSICIAN NO FAMILY Primary Care Provider Active Tile Trimmer Relationship Specialty Start Date End Date Cheri Pringle DO [address] [place] [address] PCP - General 08/22/99 Tile Trimmer Relationship Specialty Start Date End Date Cheri Pringle, DO [address] [place] [address] PCP - General 08/22/99 Tile Trimmer Relationship Specialty Start Date End Date Cheri Pringle DO [address] [place] [address] PCP - General 08/22/99 Goals (unrecognized [...] BE BASED ON THE PRIMARY CLINICAL RECORDS. [facility] [employer] [facility]. provides no warranty or guarantee of the accuracy or completeness of information in this document.
[2023-10-08 08:25] LABS: Estimated GFR (African America >60 (>=60); Estimated GFR (Non-African Ame >60 (>=60)
== END 2023-10-08 07:59 | disposition home or self-care (01) ==
LOC: LAB 07:58
PROVIDERS: PCP Family Medicine; Visit Provider Otolaryngology
DX: K21.9 Gastro-esophageal reflux disease without esophagitis (principal); R13.14 Dysphagia, pharyngoesophageal phase
CPT/HCPCS: 36415; 70491; 82565; Q9967